=== PATIENT | female | born 1960 | race Caucasian/White ===

== ENCOUNTER 2017-09-21 22:13 | Inpatient (IN) ==
[2017-09-21 23:04] LABS: Basophils % 0.4 %; Eosinophils # 0.1 K/mcL (0.0-0.6); Eosinophils % 1.1 %; Hematocrit 42.5 % (35.3-44.9); Immature Granulocytes % 0.4 % (0-4); Lymphocytes # 2.2 K/mcL (0.6-4.6); Lymphocytes % 23.5 %; Mean Corpuscular HGB Conc 32.9 g/dL (31.6-35.5); Mean Corpuscular Hemoglobin 25.7 pg (28.0-33.3); Mean Platelet Volume 10.2 fL (9.4-12.4); Monocytes # 0.7 K/mcL (0.0-1.3); Monocytes % 7.1 %; Neutrophils # 6.3 K/mcL (1.6-8.9); Platelet Count 202 K/mcL (140-400); Red Blood Count 5.45 M/mcL (3.82-4.97); Red Cell Distribution Width 14.6 % (11.5-14.5); Segmented Neutrophils % 67.5 %
[2017-09-21 23:09] LABS: INR 1.4; Prothrombin Time 14.9 Seconds (9.4-12.1)
[2017-09-21 23:23] LABS: Platelet Estimate Normal (Normal)
[2017-09-21 23:25] LABS: Troponin I < 0.03 ng/mL (< 0.04)
[2017-09-21 23:32] LABS: BUN/Creatinine Ratio 19 (6-26); Blood Urea Nitrogen 13 mg/dL (6-20); Calcium 9.1 mg/dL (8.6-10.3); Carbon Dioxide 21 mEq/L (23-29); Chloride 103 mEq/L (98-107); Glucose 239 mg/dL (70-105); Osmolality,Calculated 288 (280-300); Potassium 3.7 mEq/L (3.5-5.1); Sodium 135 mEq/L (136-145); eGFR For African Americans > 60 (> 60); eGFR For Non-African Americans > 60 (> 60)
--- NOTE | 2017-09-22 00:47 | Emergency Department Note ---
Disposition Clinical Impression: Essential hypertension, ICD (implantable cardioverter-defibrillator) in place, AICD (automatic cardioverter/defibrillator) present, NICM (nonischemic cardiomyopathy) CHF exacerbation Qualifiers: Heart failure type: systolic Qualified Code(s): I50.23 - Acute on chronic systolic (congestive) heart failure Diabetes Qualifiers: Diabetes mellitus type: other specified (including MARTELL) Diabetes mellitus manager terminal insulin use: with manager terminal use Diabetes mellitus complication status : without complication Qualified Code(s): E13.9 - Other specified diabetes mellitus without complications Disposition: Admitted As Inpatient Condition: Good Referrals: Lonnie Sanchez PAC [Primary Care Provider] - Forms: ED Satisfaction Letter Time of Disposition: 01:33 SOB HPI - General Chief Complaint: ED Shortness of Breath/Dyspnea Stated Complaint: SOB Time Seen by Provider: 09/21/17 22:25 Source: patient, EMS Mode of arrival: EMS Limitations: no limitations Nursing Notes Reviewed: Yes Vital Signs Reviewed: Yes - History of Present Illness This is a 57 year-old female with history of nonischemic cardiomyopathy with EF as low as 10%, s/p AICD, CHF, HTN, and IDDM. She resented via EMS with dyspnea, gradually worsening for 4-5 days, associated with cough productive of thick white sputum, increased bilateral lower extremity edema, and orthopnea. She denies any associated fever or chest pain. Pt Subjective Complaint: shortness of breath Onset (ago): day(s) (4-5) Severity: moderate Consistency/Duration: gradually worsening Improves with: nothing Worsens with: lying flat, exertion Known history of: COPD, congestive heart failure Associated symptoms: Reports: cough, wheezing, sputum production, orthopnea. Denies: chest pain, fever, lower extremity pain, palpitations, hemoptysis, nausea/vomiting, syncope Treatment prior to arrival: bronchodilator Cough present: Yes Cough Description: Productive Cough Frequency: Intermittent Sputum production: Yes Sputum Amount: Moderate Sputum Color: White - Related Data Home Medications Medication Instructions Recorded Confirmed Gabapentin [Neurontin] 600 mg PO TID PRN #0 01/23/15 01/03/16 Insulin ASPART [NovoLOG] 0 unit SQ BIDWM 01/23/15 01/03/16 Lisinopril [Zestril] 20 mg PO DAILY #0 01/23/15 01/03/16 Oxycodone HCl/Acetaminophen 1 tab PO QID PRN 06/22/15 01/03/16 [Percocet 10-325 mg Tablet] Insulin Glargine [Lantus] 80 unit SQ HS 07/10/15 01/03/16 Previous Rx's Medication Instructions Recorded Carvedilol [Coreg] 25 mg PO BIDWM #60 tablet 07/15/15 Cefuroxime PO [Ceftin] 250 mg PO Q12HR #10 tablet 01/05/16 Cetirizine HCl/Pseudoephedrine 1 each PO BID #20 tab.er.12h 07/14/16 [Allergy+Congestion Relf-D Tab] GuaiFENesin/Codeine [Robitussin 5 ml PO Q6HR #150 liquid 07/14/16 w/Codeine] HYDROcodone/Acet 5/325 mg [[place] 1 tab PO Q6HR PRN #12 tablet 08/11/16 5-325 mg] Diclofenac Sodium [Voltaren] 1 appl TP QID #100 gm 06/27/17 Allergies Allergy/AdvReac Type Severity Reaction Status Date / Time No Known Allergies Allergy Verified 07/14/16 17:10 All systems ED: reviewed and negative except as stated. Constitutional: Reports: weight change. Denies: fever Cardiovascular: Reports: as per HPI, orthopnea, edema. Denies: chest pain, syncope Respiratory: Reports: cough, dyspnea, sputum production. Denies: hemoptysis Gastrointestinal: Denies: abdominal pain, vomiting Genitourinary: Denies: dysuria Musculoskeletal: Denies: back pain Past Medical History - Past Medical History Medical history: Reports: atrial fibrillation, cardiomyopathy, CHF, diabetes, hyperlipidemia, hypertension, other Surgical history: Reports: cholecystectomy, hysterectomy, orthopedic, other, pacemaker/AICD Psychiatric history: Reports: anxiety, depression RETURNER history: Reports: no RETURNER history - Social History Smoking Status: Never smoker Smokeless Tobacco Status: No Alcohol use: Reports: none Drug use: Reports: none Physical Exam - General Limitations: no limitations General appearance: alert - Head Head exam: atraumatic, normocephalic - Eye Eye exam: Present: normal appearance - ENT ENT exam: normal exam - Neck Neck exam: Present: normal inspection - Respiratory Respiratory exam: Present: respiratory distress (mild), wheezes. Absent: normal lung sounds bilaterally (decreased air entry and rhonchi bilaterally) - Cardiovascular Cardiovascular exam: Present: regular rate, normal rhythm, normal heart sounds - Abdominal Exam Abdominal exam: Present: soft, Non-Tender. Absent: distention - Extremities Exam Extremities exam: Present: normal inspection, pedal edema. Absent: calf tenderness - Neurological Exam Neurological exam: Present: alert, oriented X3. Absent: motor sensory deficit - Psychiatric Psychiatric exam: Present: anxious - Skin Skin exam: Present: warm, dry, intact Course - Reevaluation(s) Reevaluation #1: Discussed test results with patient and answered her questions. She would like to be admitted, and considering her symptoms and significant co- morbidities, we will do so. Time: 01:33 - Consultations Consultation #1: Paged hospitalist Time: 01:41 Consultation #2: Reviewed case with Dr. Woody. She would like a call back with chest CTA results prior to admission. Time: 01:56 Consultation #3: Paged Dr. Woody to discuss CT report. Patient accepted for admission. Time: 02:39 Vital Signs Temperature 98 F 09/21/17 22:16 Pulse Rate 87 09/21/17 22:16 Respiratory Rate 22 09/21/17 22:16 Blood Pressure 155/93 09/21/17 22:16 O2 Sat by Pulse Oximetry 93 09/21/17 22:16 Temperature 98 F 09/21/17 22:16 Pulse Rate 85 09/22/17 01:58 Respiratory Rate 24 09/22/17 01:58 Blood Pressure 155/84 09/22/17 01:58 O2 Sat by Pulse Oximetry 92 09/22/17 01:58 Oxygen Delivery Oxygen Delivery Nasal Cannula Shortness of Breath/Dyspnea - [facility] Narrative Medical decision making narrative: This is a patient with history of severe cardiomyopathy/CHF who presented with dyspnea, productive cough, and edema. Her presented symptoms and exam had features of PNA, COPD exacerbation (she is a smoker but I'm not finding a previous diagnosis of COPD), and CHF exacerbation. CXR showed stable CHF, no PNA. D-dimer was positive, and chest CTA is pending at this time. If CT negative , we will admit for dyspnea, CHF exacerbation. - Differential Diagnosis Likely: acute exacerbation of chronic obstructive airways disease, congestive heart failure, pneumonia, pulmonary embolism - Medical Records Medical records reviewed: Yes I reviewed the patient's medical records. - Lab Data Lab results reviewed: Yes I reviewed the patient's lab results. Result diagrams: 09/21/17 22:51 09/21/17 22:51 Lab Results 09/21/17 09/21/17 09/21/17 Range/Units 22:51 22:51 22:51 WBC 9.3 (4.3-11.1) K/mcL RBC 5.45 H (3.82-4.97) M/mcL Hgb 14.0 (11.5-15.4) g/dL Hct 42.5 (35.3-44.9) % MCV 78.0 L (83.0-100.0) fL MCH 25.7 L (28.0-33.3) pg MCHC 32.9 (31.6-35.5) g/dL RDW 14.6 H (11.5-14.5) % Plt Count 202 (140-400) K/mcL MPV 10.2 (9.4-12.4) fL Immature Gran % 0.4 (0-4) % Seg Neutrophils % 67.5 % Lymphocytes % 23.5 % Monocytes % 7.1 % Eosinophils % 1.1 % Basophils % 0.4 % Neutrophils # 6.3 (1.6-8.9) K/mcL Lymphocytes # 2.2 (0.6-4.6) K/mcL Monocytes # 0.7 (0.0-1.3) K/mcL Eosinophils # 0.1 (0.0-0.6) K/mcL Basophils # 0.0 (0.0-0.2) K/mcL Platelet Estimate Normal (Normal) PT 14.9 H (9.4-12.1) Seconds INR 1.4 APTT 28.0 (26.0-36.0) Seconds D-Dimer 533 H (0-500) ng/mLFEU Sodium 135 L (136-145) mEq/L Potassium 3.7 (3.5-5.1) mEq/L Chloride 103 (98-107) mEq/L Carbon Dioxide 21 L (23-29) mEq/L BUN 13 (6-20) mg/dL Creatinine 0.69 (0.60-1.20) mg/dL Est GFR ( Amer) > 60 (> 60) Est GFR (Non-Af Amer) > 60 (> 60) BUN/Creatinine Ratio 19 (6-26) Glucose 239 H (70-105) mg/dL Calculated Osmolality 288 (280-300) Lactic Acid (0.5-2.2) mmol/L Calcium 9.1 (8.6-10.3) mg/dL Troponin I < 0.03 (< 0.04) ng/mL B-Natriuretic Peptide (Less than 100) pg/mL 09/21/17 09/21/17 Range/Units 22:51 22:51 WBC (4.3-11.1) K/mcL RBC (3.82-4.97) M/mcL Hgb (11.5-15.4) g/dL Hct (35.3-44.9) % MCV (83.0-100.0) fL MCH (28.0-33.3) pg MCHC (31.6-35.5) g/dL RDW (11.5-14.5) % Plt Count (140-400) K/mcL MPV (9.4-12.4) fL Immature Gran % (0-4) % Seg Neutrophils % % Lymphocytes % % Monocytes % % Eosinophils % % Basophils % % Neutrophils # (1.6-8.9) K/mcL Lymphocytes # (0.6-4.6) K/mcL Monocytes # (0.0-1.3) K/mcL Eosinophils # (0.0-0.6) K/mcL Basophils # (0.0-0.2) K/mcL Platelet Estimate (Normal) PT (9.4-12.1) Seconds INR APTT (26.0-36.0) Seconds D-Dimer (0-500) ng/mLFEU Sodium (136-145) mEq/L Potassium (3.5-5.1) mEq/L Chloride (98-107) mEq/L Carbon Dioxide (23-29) mEq/L BUN (6-20) mg/dL Creatinine (0.60-1.20) mg/dL Est GFR ( Amer) (> 60) Est GFR (Non-Af Amer) (> 60) BUN/Creatinine Ratio (6-26) Glucose (70-105) mg/dL Calculated Osmolality (280-300) Lactic Acid 1.3 (0.5-2.2) mmol/L Calcium (8.6-10.3) mg/dL Troponin I (< 0.04) ng/mL B-Natriuretic Peptide 995 H (Less than 100) pg/mL - Radiology Data Radiology results reviewed: Yes I reviewed the patient's radiology results. XR/XR chest 1V portable IMPRESSION: No significant change. Low lung volume study with bibasilar atelectasis. Possible mild vascular congestion and stable cardiomegaly. CT/CT angio chest IMPRESSION: No acute pulmonary emboli. Cardiomegaly. No pericardial effusion. Multiple areas of clustered pulmonary nodules and ground-glass pulmonary opacities bilaterally, most prominent within the bilateral lower lobes. Findings may represent pneumonia or aspiration. Recommend radiographic follow-up to complete resolution. Consider follow-up chest CT in 3 months. - EKG Data EKG attestation: Yes I reviewed and interpreted this EKG. EKG shows normal: Reports: sinus rhythm [place]/QRS: Reports: left axis deviation T wave inversions noted in: Reports: I, aVL QRS morphology: Reports: other (slight widening / intraventricular conduction delay) Ectopy: Reports: PAC When compared to previous EKG there are: no significant changes Interpretation: Reports: unchanged when compared to prior tracing (date), nonspecific ST-T wave changes
[2017-09-22] MEDS ORDERED: Isovue-370 500 ML INFUS..BTL IV ONE (01:15)
[2017-09-22] MEDS ORDERED: Furosemide 40 MG/4 ML VIAL IVP ONE (01:55)
[2017-09-22] MEDS ORDERED: *HR* Dextrose 50 % in Water (Syg) 50 ML SYRINGE IVP PRN (04:26)
[2017-09-22] MEDS ORDERED: Dextrose Gel 15 GM/37.5 ML TUBE PO PRN ×2 (04:26)
[2017-09-22] MEDS ORDERED: D5% in Water 1,000 ML IVC PRN (04:26)
[2017-09-22] MEDS: Ipratropium/Albuterol Neb 3 ML IH SCH ×4 (05:25→22:19)
[2017-09-22] MEDS: Insulin DETEMIR 100 UNIT/ML X5UNITS SQ SCH ×2 (05:42→22:59)
[2017-09-22] MEDS: *HR* OxyCODONE/APAP 7.5/325 TABLET PO PRN ×3 (05:42→23:02)
[2017-09-22] MEDS: Insulin LISPRO 300 UNITS/3 ML VIAL SQ SCH ×4 (05:43→17:05)
[2017-09-22] MEDS ORDERED: Furosemide 40 MG/4 ML VIAL IVP SCH (06:00)
[2017-09-22] MEDS ORDERED: Naloxone 0.4 MG/ML INJ IVP PRN (06:27)
[2017-09-22] MEDS ORDERED: Acetaminophen 325 MG TABLET PO PRN (06:27)
--- NOTE | 2017-09-22 06:52 | Internal Med History&Physical ---
Date of Encounter: 09/22/17 Time of Encounter: 06:42 Internal Medicine - H&P: HPI Chief complaint: "Short of breath, back pain, ass pain" Admitted From: Emergency Dept Plans for Post Hospital Care: Home History of present illness: Ms. Song is a 57 year old female who presented to ED with shortness of breath, lower back pain, and "ass" pain. Patient states that she fell in shower few days ago and hit her head and back side. Patient has a history of nonischemic cardiomyopathy with EF as low as 10%, s/p AICD, CHF, HTN, and Type II DM. She has been having gradually worsening dyspnea for last 4-5 days. She has also had worsening BLE edema. She denies any chest pain, fever, chills, nausea, and vomiting. She has had some mild diarrhea x 2. She denies constipation or abdominal pain. She states that she stopped following with cardiology here because she did not like having a new doctor everytime she went there. I told her that I would consult SW in AM to help her find a new agriculture specialist. She states that her PCP manages her medications, and she does follow up with him. Her main concern at this time is getting her home percocet 10 mg QID. She states that respiratory status is greatly improved since getting IV lasix 40 mg x 1 in ED. Her breathing is non-labored on room air. Past Med Surg Social Fam HX - Past Medical History Medical history: atrial fibrillation, cardiomyopathy, CHF, diabetes, hyperlipidemia, hypertension, other Psychiatric history: anxiety, depression - Past Surgical History Surgical History: cholecystectomy, hysterectomy, orthopedic, other, pacemaker/ AICD - Social History Smoking Status: Never smoker Smokeless Tobacco Status: No Alcohol use: none Drug use: none - Family History Mother Adopted: No Family Member Ethnicity: Non- Living Status: Hx Family Cardiac Disorders: Yes (chf) Hx Family Respiratory Disorders: Yes (copd) Hx Family Cancer: No Hx Family GI Disorders: No Hx Family Endocrine Disorder: Yes (dm) Hx Family Neuromuscular Disorders: No Hx Family Neurologic Disorders: No Hx Family HEENT Disorders: No Hx Family Autoimmune Disorders: No Sister Living Status: Hx Family Cardiac Disorders: Yes (CHF) Hx Family Neurologic Disorders: Yes (Migraine headache) Internal Medicine - H&P: Meds Gabapentin [Neurontin] 600 mg PO TID PRN #0 01/23/15 [History] Insulin ASPART [NovoLOG] 0 unit SQ BIDWM 01/23/15 [History] Lisinopril [Zestril] 20 mg PO DAILY #0 01/23/15 [History] Oxycodone HCl/Acetaminophen [Percocet 10-325 mg Tablet] 1 tab PO QID PRN [History] Insulin Glargine [Lantus] 80 unit SQ HS 07/10/15 [History] Carvedilol [Coreg] 25 mg PO BIDWM #60 tablet 07/15/15 [Rx] Cefuroxime PO [Ceftin] 250 mg PO Q12HR #10 tablet 01/05/16 [Rx] Cetirizine HCl/Pseudoephedrine [Allergy+Congestion Relf-D Tab] 1 each PO BID # 20 tab.er.12h 07/14/16 [Rx] GuaiFENesin/Codeine [Robitussin w/Codeine] 5 ml PO Q6HR #150 liquid 07/14/16 [Rx ] HYDROcodone/Acet 5/325 mg [[place] 5-325 mg] 1 tab PO Q6HR PRN #12 tablet [Rx] Diclofenac Sodium [Voltaren] 1 appl TP QID #100 gm 06/27/17 [Rx] 3 Allergy/AdvReac Type Severity Reaction Status Date / Time No Known Allergies Allergy Verified 07/14/16 17:10 All Systems PM: A 10-system review of systems was performed and is negative for pertinent findings except as documented above in the HPI. - Constitutional Vitals: Temp Pulse Resp BP Pulse Ox 97.8 F 81 16 144/87 91 09/22/17 03:59 09/22/17 03:59 09/22/17 05:28 09/22/17 03:59 09/22/17 05:28 Internal Med - H&P Results - Labs CBC & Chem 7: 09/21/17 22:51 09/21/17 22:51 - Assessment and plan (1) Acute on chronic systolic (congestive) heart failure Current Visit: Yes Status: Acute Assessment and plan: Admit inpatient. Continue supplemental O2. Start duonebs scheduled. IV lasix 40 mg BID. Strict I&Os and daily weights. CTA chest negative for PE, but possible pneumonia. Given dyspnea, will add IV levaquin 750 mg QD; will deescalate quickly if improvement with diurese. Consult cardiology in AM; appreciate input. Will need good outpatient follow-up; SW consulted to help set this up. (2) Essential hypertension Current Visit: Yes Status: Acute Assessment and plan: Continue home medications. (3) AICD (automatic cardioverter/defibrillator) present Current Visit: Yes Status: Chronic (4) Diabetes Current Visit: Yes Status: Chronic Assessment and plan: See management of hyperglycemia below. Qualifiers: Diabetes mellitus type: other specified (including MARTELL) Diabetes mellitus termite control servicer insulin use: with termite control servicer use Diabetes mellitus complication status: without complication Qualified Code(s): E13.9 - Other specified diabetes mellitus without complications; Z79.4 - vermin exterminator (current) use of insulin (5) NICM (nonischemic cardiomyopathy) Current Visit: Yes Status: Chronic Assessment and plan: Cardiology consulted. SW consulted to help patient find new agriculture specialist. Treating CHF as per above. (6) Chronic pain Current Visit: Yes Status: Chronic Assessment and plan: See restarting home percocet below. Qualifiers: Chronic pain type: other chronic pain Qualified Code(s): G89.29 - Other chronic pain (7) Hyperglycemia due to type 2 diabetes mellitus Current Visit: Yes Status: Acute Assessment and plan: Start accuchecks and moderate dose SSI QID AC/HS. Do 1 correction dose now. Start home long-acting at lower dose. Qualifiers: Diabetes mellitus group home insulin use: with group home use Qualified Code( s): E11.65 - Type 2 diabetes mellitus with hyperglycemia; Z79.4 - vermin exterminator ( current) use of insulin (8) Hyperlipidemia Current Visit: Yes Status: Chronic Assessment and plan: Continue home medications. Qualifiers: Hyperlipidemia type: mixed hyperlipidemia Qualified Code(s): E78.2 - Mixed hyperlipidemia (9) Low back pain Current Visit: Yes Status: Acute Assessment and plan: Acute on chronic. Given fall, will get XR lumbar spine. PT/OT consulted. Will restart home percocet maybe at lower dose once confirmed by pharmacist. Qualifiers: Chronicity: acute Back pain laterality: unspecified Sciatica presence: unspecified whether sciatica present Qualified Code(s): M54.5 - Low back pain (10) Head pain Current Visit: Yes Status: Acute Assessment and plan: No head imaging done in ED. Will order STAT CT head. Qualifiers: Headache type: unspecified Headache chronicity pattern: acute headache Intractability: not intractable Qualified Code(s): R51 - Headache (11) Fall Current Visit: Yes Status: Acute Assessment and plan: PT/OT consulted. Qualifiers: Encounter type: initial encounter Qualified Code(s): W19.XXXA - Unspecified fall, initial encounter (12) Pneumonia Current Visit: Yes Status: Suspected Assessment and plan: IV levaquin for now as per above. Qualifiers: Pneumonia type: due to unspecified organism Laterality: unspecified laterality Lung location: unspecified part of lung Qualified Code(s): J18.9 - Pneumonia, unspecified organism - Time Spent With Patient Total time spent is greater than 50% in coordination of care (as documented) at patient's floor/unit and/or counseling patient: 25 - 35 minutes
[2017-09-22 08:06] LABS: Hematocrit 42.7 % (35.3-44.9); Hemoglobin 14.1 g/dL (11.5-15.4); Mean Corpuscular Hemoglobin 25.6 pg (28.0-33.3); Mean Corpuscular Volume 77.6 fL (83.0-100.0); Mean Platelet Volume 10.1 fL (9.4-12.4); Platelet Count 209 K/mcL (140-400); Red Cell Distribution Width 14.4 % (11.5-14.5)
[2017-09-22 08:10] LABS: Chol/HDL Ratio 4.1 (0-4.9)
[2017-09-22 08:11] LABS: BUN/Creatinine Ratio 18 (6-26); Blood Urea Nitrogen 13 mg/dL (6-20); Carbon Dioxide 24 mEq/L (23-29); Chloride 103 mEq/L (98-107); Glucose 241 mg/dL (70-105); Osmolality,Calculated 290 (280-300); Potassium 3.2 mEq/L (3.5-5.1); Sodium 136 mEq/L (136-145); eGFR For African Americans > 60 (> 60); eGFR For Non-African Americans > 60 (> 60)
[2017-09-22 08:59] LABS: Eosinophils # 0.2 K/mcL (0.0-0.6); Lymphocytes # 2.1 K/mcL (0.6-4.6); Monocytes # 0.2 K/mcL (0.0-1.3); Neutrophils # 6.3 K/mcL (1.6-8.9); Platelet Estimate Normal (Normal); Reactive Lymphocytes Present (Not Present)
[2017-09-22] MEDS ORDERED: Perflutren Lipid Microsphere 1.3 ML in 0.9 % Sodium Chloride 8.7 ML IVP ONE (09:09)
[2017-09-22] MEDS: Levofloxacin 750 MG/150 ML 750 MG/150 ML BAG IVPB SCH (10:58)
[2017-09-22] MEDS: Furosemide 40 MG/4 ML VIAL IVP SCH ×2 (10:58→16:18)
--- NOTE | 2017-09-22 14:29 | Cardiology Consult Note ---
Addendum entered and electronically signed by Daisy Estrella MD 09/22/17 16:18: I have personally performed a face to face evaluation on this patient. I have reviewed and agree with the care plan. History and Exam by me shows: Pt seen/evaluated. Agree with below. Pt with symptoms consistent with low cardiac output, acute HFrEF. Will start on dobutamine gtt. Also discussed with patient referral to advanced heart failure clinic as outpatient- pt prefers [facility]. Addendum entered and electronically signed by Lorena Man CNP 09/22/17 15: 02: Discussed with Dr. Estrella, will start dobutamine gtt to improve cardiac output. Will need transfer to or [facility]. Original Note: Date of Encounter: 09/22/17 Time of Encounter: 14:00 Assessment and Plan (1) Acute on chronic systolic (congestive) heart failure Current Visit: Yes Status: Acute Mild CHF exacerbation. Pt. presented after mechanical fall. CXR: stable CHF. No overt volume overload upon exam. Known NICMP (2010) s/p ICD. Pt. reports gen. change at [place] in 2017, has not had device checked in >1 year. Poor outpatient follow-up. Agree with IV lasix, monitory kidney function closely. Resume home BB, consider ACEi upon discharge. Strict I&Os, daily weights, Na/fluid restricted diet. (2) NICM (nonischemic cardiomyopathy) Current Visit: Yes Status: Chronic Hx of NICMP, known EF 15-20% Will interrogate device. Obtain records from [place]. Discussion w patient/family: The assessment and plan as outlined above was discussed with the patient and/or family members who expressed understanding and agreement. All questions were answered. Thank you for involving us in the care of your patient. Please call with any questions. The patient will be discussed and reviewed with Dr. Estrella, changes to be made accordingly. History of Present Illness Consult date: 09/22/17 Requesting physician: Everette Potter Consult reason: CHF Chief complaint: Fall, shortness of breath History of present illness: Ms. Song is a 57 year old female with PMHx significant for NICMP, VT, HTN, DMII who presented to the ED after a fall yesterday in addition to worsening shortness of breath over the past 1-2 days. Reports fall as she was trying to lift leg out of bath tub--did not lose consciousness, was not dizzy prior to event. Noted in outpatient record she has poor follow-up with [facility] and in device clinic. She has a long-standing hx of non-ischemic cardiomyopaty s /p ICD placement. Reports hospitalization ~1 year ago at [facility], at that time she underwent ICD gen change; she has not followed as outpatient with [facility] due to transportation issues. Prior CV testing: LHC 07/2015: minimal atherosclerotic CAD TTE 07/2015: LVEF 15-20% Past Med Surg Social Fam HX - Past Medical History Attestation: Yes The following information was validated with the patient. Source: patient Medical history: atrial fibrillation, cardiomyopathy, CHF, diabetes, hyperlipidemia, hypertension, other Psychiatric history: anxiety, depression - Past Surgical History Surgical History: cholecystectomy, hysterectomy, orthopedic, other, AICD - Social History Smoking Status: Never smoker Smokeless Tobacco Status: No Alcohol use: none Drug use: none - Family History Mother Adopted: No Family Member Ethnicity: Non- Living Status: Hx Family Cardiac Disorders: Yes (chf) Hx Family Respiratory Disorders: Yes (copd) Hx Family Cancer: No Hx Family GI Disorders: No Hx Family Endocrine Disorder: Yes (dm) Hx Family Neuromuscular Disorders: No Hx Family Neurologic Disorders: No Hx Family HEENT Disorders: No Hx Family Autoimmune Disorders: No Sister Living Status: Hx Family Cardiac Disorders: Yes (CHF) Hx Family Neurologic Disorders: Yes (Migraine headache) Medications and Allergies Lisinopril [Zestril] 20 mg PO DAILY #0 01/23/15 [History] Insulin Glargine [Lantus] 80 unit SQ HS 07/10/15 [History] Carvedilol [Coreg] 6.25 mg PO BID 09/22/17 [History] Diclofenac Sodium [Voltaren] 1 appl TP QID PRN 09/22/17 [History] Insulin ASPART [Novolog Flexpen] 0 units SQ TIDWM 09/22/17 [History] Oxycodone HCl/Acetaminophen [Endocet 10-325 mg Tablet] 1 tab PO QID 09/22/17 [ History] Ropinirole HCl [Requip] 0.5 mg PO HS 09/22/17 [History] 3 Allergy/AdvReac Type Severity Reaction Status Date / Time No Known Allergies Allergy Verified 09/22/17 12:31 All Systems Review: The remainder of the systems were reviewed and are negative - Cardiovascular Cardiovascular: as per HPI Physical Examination Vital Signs, Last 4 Hours Temp Pulse Resp BP Pulse Ox 09/22/17 11:08 99.0 F 82 16 132/85 94 09/22/17 10:45 94 General: Conversant HEENT: Atraumatic, Normocephaly Cardiac: Reg Rate and Rhythm, Normal S1 and S2 Lungs: Other (bibasilar rales) Neuro: Alert and responsive Abdomen: Soft Skin: No rashes noted on visualized skin Musculoskeletal: No Chest Wall Tenderness Extremities: Other (cool, dusky bilateral LE's) Results 09/22/17 07:34 09/22/17 07:34 Lab Results 09/22/17 09/22/17 09/22/17 07:34 07:34 07:34 WBC 8.7 Hgb 14.1 Hct 42.7 Plt Count 209 Sodium 136 Potassium 3.2 L Chloride 103 Carbon Dioxide 24 BUN 13 Creatinine 0.72 Glucose 241 H Calcium 9.0 B-Natriuretic Peptide 972 H Active Medications Acetaminophen (Tylenol) 650 mg PO Q6HR PRN PRN Reason: Mild Pain/Fever Stop: 03/24/18 06:28 Albuterol/Ipratropium (Duoneb) 3 ml IH [id number] ANAHY Stop: 03/24/18 04:31 Last Admin: 09/22/17 09:40 Dose: Not Given Dextrose/Water (Dextrose 50% (Syg)) 25 ml IVP AD PRN PRN Reason: Hypoglycemia Stop: 03/24/18 04:27 Enoxaparin Sodium (Lovenox) 40 mg SQ 0600 AANHY PRN Reason: Protocol Stop: 03/25/18 06:01 Furosemide (Lasix) 40 mg IVP BIDDIURETIC ANAHY Stop: 03/24/18 08:01 Last Admin: 09/22/17 10:58 Dose: 40 mg Glucagon (Glucagen) 1 mg IM ONCE PRN PRN Reason: Hypoglycemia Stop: 03/24/18 04:27 Glucose (Gluctose) 15 gm PO ONCE PRN PRN Reason: Hypoglycemia Stop: 03/24/18 04:27 Glucose (Gluctose) 30 gm PO ONCE PRN PRN Reason: Hypoglycemia Stop: 03/24/18 04:27 Heparin Sodium (Porcine) (Heparin Lock) 500 unit IV ONCE PRN PRN Reason: Port Flush while in RADIOLOGY Stop: 09/24/17 01:15 Dextrose (Dextrose 5%) 1,000 mls @ 100 mls/hr IVC .Q10H PRN PRN Reason: HYPOGLYCEMIA Stop: 03/24/18 04:27 Levofloxacin/Dextrose (Levaquin Premix 750mg/150 Ml) 750 mg in 150 mls @ 100 mls/hr IVPB DAILY ANAHY PRN Reason: Protocol Stop: 03/24/18 09:01 Last Admin: 09/22/17 10:58 Dose: 100 mls/hr Insulin Detemir (Levemir) 30 unit SQ HS ANAHY Stop: 03/24/18 04:31 Last Admin: 09/22/17 05:42 Dose: 30 unit Insulin Human Lispro (Humalog) 0 units SQ HS ANAHY PRN Reason: Protocol Stop: 03/24/18 21:01 Insulin Human Lispro (Humalog) 0 units SQ TIDAC ANAHY PRN Reason: Protocol Stop: 03/24/18 04:31 Last Admin: 09/22/17 12:14 Dose: 6 units Naloxone HCl (Narcan) 0.4 mg IVP Q2MIN PRN PRN Reason: SEE COMMENTS Stop: 03/24/18 06:28 Oxycodone/Acetaminophen (Percocet 7.5/325) 1 each PO Q6HR PRN PRN Reason: Severe Pain Stop: 03/24/18 05:20 Last Admin: 09/22/17 05:42 Dose: 1 each - Imaging and Cardiology Echo: report reviewed Cardiac cath: report reviewed Other Results: 12 hour tele: avg HR=82 SR. - EKG Interpretation EKG results cardiology: personally reviewed Consult Discharge Plan - Plan Referrals: Lonnie Sanchez, PAC [Primary Care Provider] -
[2017-09-22] MEDS ORDERED: (Diclofenac Sodium [Voltaren] 1 APPL) TP PRN (15:19)
--- NOTE | 2017-09-22 15:25 | Internal Med Progress Note ---
Date of Encounter: 09/22/17 Time of Encounter: 15:21 - Assessment and plan (1) Acute on chronic systolic (congestive) heart failure Current Visit: Yes Status: Acute Assessment and plan: presented with worsening shortness of breath. Chest CTA negative for pulmonary embolism. BNP 995, CXR with mild vascular congestion. TTE with EF 15-20% ( unchanged from 2016). IV diuresis with dobutamine gtt. Cont daily weights, strict I&O's. Cardiology following; defer diuresis to cardiology (2) AICD (automatic cardioverter/defibrillator) present Current Visit: Yes Status: Chronic Assessment and plan: per hx. Device interrogation pending (3) Diabetes Current Visit: Yes Status: Chronic Assessment and plan: per hx. SSI. Monitor blood sugar and titrate PRN Qualifiers: Diabetes mellitus type: other specified (including MARTELL) Diabetes mellitus watermelon inspector insulin use: with watermelon inspector use Diabetes mellitus complication status: without complication Qualified Code(s): E13.9 - Other specified diabetes mellitus without complications; Z79.4 - ferry terminal agent (current) use of insulin (4) NICM (nonischemic cardiomyopathy) Current Visit: Yes Status: Chronic Assessment and plan: per hx. Plan as noted above. (5) Hyperlipidemia Current Visit: Yes Status: Chronic Assessment and plan: Continue home medications. Qualifiers: Hyperlipidemia type: mixed hyperlipidemia Qualified Code(s): E78.2 - Mixed hyperlipidemia (6) Chronic pain Current Visit: Yes Status: Chronic Assessment and plan: See restarting home percocet below. Qualifiers: Chronic pain type: other chronic pain Qualified Code(s): G89.29 - Other chronic pain (7) Hyperglycemia due to type 2 diabetes mellitus Current Visit: Yes Status: Acute Assessment and plan: Start accuchecks and moderate dose SSI QID AC/HS. Do 1 correction dose now. Start home long-acting at lower dose. Qualifiers: Diabetes mellitus watermelon inspector insulin use: with watermelon inspector use Qualified Code( s): E11.65 - Type 2 diabetes mellitus with hyperglycemia; Z79.4 - ferry terminal agent ( current) use of insulin (8) Essential hypertension Current Visit: Yes Status: Acute Assessment and plan: per hx. BP controlled. Cont home BP medication. Monitor BP and titrate PRN (9) Low back pain Current Visit: Yes Status: Acute Assessment and plan: Acute on chronic. Lumbar x-ray nonacute. PT/OT consulted. Qualifiers: Chronicity: acute Back pain laterality: unspecified Sciatica presence: unspecified whether sciatica present Qualified Code(s): M54.5 - Low back pain (10) Head pain Current Visit: Yes Status: Acute Assessment and plan: No head imaging done in ED. STAT head CT ordered but need to wait at least 24 hours from chest CTA. Neurologically intact, no focal deficits apparent. Hold on head CT at this time. Consider imaging of change in mentation Qualifiers: Headache type: unspecified Headache chronicity pattern: acute headache Intractability: not intractable Qualified Code(s): R51 - Headache (11) Fall Current Visit: Yes Status: Acute Assessment and plan: PT/OT consulted. Qualifiers: Encounter type: initial encounter Qualified Code(s): W19.XXXA - Unspecified fall, initial encounter (12) Pneumonia Current Visit: Yes Status: Suspected Assessment and plan: CTA conerning for pneumonia. Rested for a PCR, urinary antigens pending. Continue IV Levaquin. Qualifiers: Pneumonia type: due to unspecified organism Laterality: unspecified laterality Lung location: unspecified part of lung Qualified Code(s): J18.9 - Pneumonia, unspecified organism (13) DVT prophylaxis Current Visit: Yes Status: Acute Assessment and plan: lovenox - Time Spent With Patient Total time spent is greater than 50% in coordination of care (as documented) at patient's floor/unit and/or counseling patient: - Subjective Interval history: Seen and examined at bedside. Patient is new to me, information obtained from chart review and patient report. Patient says she feels a little better from when she first came in. Still has a cough and short of breath with exertion. No chest pain. - Constitutional Vitals: Temp Pulse Resp BP Pulse Ox 99.0 F 82 16 132/85 94 09/22/17 11:08 09/22/17 11:08 09/22/17 15:16 09/22/17 11:08 09/22/17 15:16 General appearance: Present: A&O X 3 - Head Head exam: Present: atraumatic, normocephalic - Eye Eye exam: Present: PERRL, conjuntiva pink, sclera anicteric Pupils: Present: PERRL - Neck Neck exam general surgery: Present: supple, trachea midline. Absent: lymphadenopathy - Respiratory Respiratory exam: Present: rales, rhonchi. Absent: accessory muscle use, wheezes - Cardiovascular Cardiovascular exam: Present: RRR, +S1, +S2. Absent: diastolic murmur, gallop, rubs, systolic murmur - GI/Abdominal GI/Abdominal exam: Present: normal bowel sounds, soft, no peritoneal signs. Absent: distended, tenderness - Extremities Exam Extremities exam: Present: warm, radial pulses palpable and symmetrical. Absent : calf tenderness, cyanotic, pedal edema - Neurological Exam Neurological exam: Present: CN II-XII intact, oriented X3, no focal deficits. Absent: pronater drift, facial droop, speech deficit - Skin Skin exam: Present: dry, intact Internal Medicine: Result - Labs CBC & Chem 7: 09/22/17 07:34 09/22/17 07:34 Labs: Short CBC 09/22/17 Range/Units 07:34 WBC 8.7 (4.3-11.1) K/mcL Hgb 14.1 (11.5-15.4) g/dL Hct 42.7 (35.3-44.9) % Plt Count 209 (140-400) K/mcL Neutrophils # 6.3 (1.6-8.9) K/mcL BMP 09/22/17 07:34 Sodium 136 Potassium 3.2 L Chloride 103 Carbon Dioxide 24 BUN 13 Creatinine 0.72 Glucose 241 H Calcium 9.0 - ABG Interpretation ABG results: PT/INR, D-dimer PT 14.9 Seconds (9.4-12.1) H 09/21/17 22:51 D-Dimer 533 ng/mLFEU (0-500) H 09/21/17 22:51 Consult Discharge Plan - Plan Referrals: Lonnie Sanchez, PAC [Primary Care Provider] -
[2017-09-22 18:17] LABS: Adenovirus Not Detected (Not Detect); Coronavirus 229E Not Detected (Not Detect); Coronavirus HKU1 Not Detected (Not Detect); Coronavirus NL63 Not Detected (Not Detect); Coronavirus OC43 Not Detected (Not Detect)
[2017-09-22 18:18] LABS: Bordetella Pertussis Not Detected (Not Detect); Chlamydophila pneumoniae Not Detected (Not Detect); Human Metapneumovirus Not Detected (Not Detect); Human Rhinovirus/Enterovirus Not Detected (Not Detect); Influenza A Subtype 2009 H1 Not Detected (Not Detect); Influenza A Untypeable Not Detected (Not Detect); Influenza B Not Detected (Not Detect); Mycoplasma pneumoniae Not Detected (Not Detect); Parainfluenza Virus 1 Not Detected (Not Detect); Parainfluenza Virus 2 Not Detected (Not Detect); Parainfluenza Virus 3 ***DETECTED*** (Not Detect); Parainfluenza Virus 4 Not Detected (Not Detect); Respiratory Syncytial Virus Not Detected (Not Detect)
[2017-09-22] MEDS ORDERED: Insulin LISPRO 300 UNITS/3 ML VIAL SQ SCH (21:00)
[2017-09-22] MEDS: rOPINIRole 0.25 MG TABLET PO SCH (22:54)
[2017-09-22] MEDS ORDERED: 0.9 % Sodium Chloride 250 ML ONE (23:42)
[2017-09-23 02:46] LABS: Basophils # 0.1 K/mcL (0.0-0.2); Basophils % 0.7 %; Eosinophils # 0.2 K/mcL (0.0-0.6); Hematocrit 42.3 % (35.3-44.9); Immature Granulocytes % 0.5 % (0-4); Lymphocytes # 2.2 K/mcL (0.6-4.6); Lymphocytes % 23.9 %; Mean Corpuscular HGB Conc 33.1 g/dL (31.6-35.5); Mean Corpuscular Hemoglobin 25.7 pg (28.0-33.3); Mean Corpuscular Volume 77.8 fL (83.0-100.0); Mean Platelet Volume 9.7 fL (9.4-12.4); Monocytes # 0.7 K/mcL (0.0-1.3); Monocytes % 7.5 %; Platelet Count 220 K/mcL (140-400); Red Blood Count 5.44 M/mcL (3.82-4.97); Red Cell Distribution Width 14.4 % (11.5-14.5); Segmented Neutrophils % 65.4 %
[2017-09-23 03:05] LABS: BUN/Creatinine Ratio 21 (6-26); Blood Urea Nitrogen 19 mg/dL (6-20); Calcium 8.9 mg/dL (8.6-10.3); Carbon Dioxide 28 mEq/L (23-29); Chloride 103 mEq/L (98-107); Glucose 165 mg/dL (70-105); Magnesium 1.8 mg/dL (1.6-2.6); Osmolality,Calculated 294 (280-300); Potassium 3.7 mEq/L (3.5-5.1); Sodium 139 mEq/L (136-145); eGFR For African Americans > 60 (> 60); eGFR For Non-African Americans > 60 (> 60)
[2017-09-23] MEDS: Ipratropium/Albuterol Neb 3 ML IH SCH ×4 (04:29→21:45)
[2017-09-23] MEDS: *HR* Enoxaparin 40 MG/0.4 ML SYRINGE SQ SCH (06:20)
[2017-09-23] MEDS: Insulin LISPRO 300 UNITS/3 ML VIAL SQ SCH ×4 (08:39→21:27)
[2017-09-23] MEDS: Levofloxacin 750 MG/150 ML 750 MG/150 ML BAG IVPB SCH (08:43)
[2017-09-23] MEDS: Furosemide 40 MG/4 ML VIAL IVP SCH ×2 (08:44→16:59)
[2017-09-23] MEDS ORDERED: Lisinopril 20 MG TABLET PO SCH (09:00)
--- NOTE | 2017-09-23 09:19 | Cardiology Progress Note ---
Date of Encounter: 09/23/17 Time of Encounter: 08:25 Assessment and Plan (1) Acute on chronic systolic (congestive) heart failure Current Visit: Yes Status: Acute Acute decompensation HF. Reports NYHA class III symptoms. CXR: stable CHF. No overt volume overload upon exam. Known NICMP (2010) s/p ICD. Pt. reports gen. change at [place] in 2017, has not had device checked in >1 year. Poor outpatient follow-up. Inpatient device check 09/22: good battery life, normal device function, 1 episode treated in VF zone 07/21/17 with successful ATP; 190 NSVT episodes. Last check 08/23/16. On IV lasix. Dobutamine gtt started yesterday, symptoms improved. Cumulative I&O: -873 mL. On BB. Hold ACEi for now while on dobutamine, resume by discharge. Strict I&Os, daily weights, Na/fluid restricted diet. (2) NICM (nonischemic cardiomyopathy) Current Visit: Yes Status: Chronic Hx of NICMP, known EF 15-20% Will interrogate device. Obtain records from [place]. Discussion w patient/family: The assessment and plan as outlined above was discussed with the patient and/or family members who expressed understanding and agreement. All questions were answered. Thank you for involving us in the care of your patient. Please call with any questions. The patient will be discussed and reviewed with Dr. Estrella, changes to be made accordingly. Subjective Principal diagnosis: NICMP Interval history: Seen and examined. Reports shortness of breath improving. Reports legs "feel better" Objective Vital Signs, Last 4 Hours Temp Pulse Resp BP Pulse Ox 09/23/17 07:28 98.4 F 73 19 143/84 90 09/23/17 06:00 76 127/66 General: Conversant HEENT: Atraumatic, Normocephaly Cardiac: Reg Rate and Rhythm, Normal S1 and S2 Lungs: Normal Breath Sounds Neuro: Alert and responsive Abdomen: Soft Skin: No rashes noted on visualized skin Musculoskeletal: No Chest Wall Tenderness Extremities: Other (mild BLE edema, discoloration to bilateral feet) Results 09/23/17 02:27 09/23/17 02:27 Lab Results 09/23/17 09/23/17 02:27 02:27 WBC 9.1 Hgb 14.0 Hct 42.3 Plt Count 220 Sodium 139 Potassium 3.7 Chloride 103 Carbon Dioxide 28 BUN 19 Creatinine 0.91 Glucose 165 H Calcium 8.9 Magnesium 1.8 Active Medications Acetaminophen (Tylenol) 650 mg PO Q6HR PRN PRN Reason: Mild Pain/Fever Stop: 03/24/18 06:28 Albuterol/Ipratropium (Duoneb) 3 ml IH [id number] ANAHY Stop: 03/24/18 04:31 Last Admin: 09/23/17 04:29 Dose: 3 ml Carvedilol (Coreg) 6.25 mg PO BID ANAHY PRN Reason: Protocol Stop: 03/24/18 21:01 Last Admin: 09/23/17 08:44 Dose: 6.25 mg Dextrose/Water (Dextrose 50% (Syg)) 25 ml IVP AD PRN PRN Reason: Hypoglycemia Stop: 03/24/18 04:27 Enoxaparin Sodium (Lovenox) 40 mg SQ 0600 ANAHY PRN Reason: Protocol Stop: 03/25/18 06:01 Last Admin: 09/23/17 06:20 Dose: 40 mg Furosemide (Lasix) 40 mg IVP BIDDIURETIC ANAHY Stop: 03/24/18 08:01 Last Admin: 09/23/17 08:44 Dose: 40 mg Glucagon (Glucagen) 1 mg IM ONCE PRN PRN Reason: Hypoglycemia Stop: 03/24/18 04:27 Glucose (Gluctose) 15 gm PO ONCE PRN PRN Reason: Hypoglycemia Stop: 03/24/18 04:27 Glucose (Gluctose) 30 gm PO ONCE PRN PRN Reason: Hypoglycemia Stop: 03/24/18 04:27 Heparin Sodium (Porcine) (Heparin Lock) 500 unit IV ONCE PRN PRN Reason: Port Flush while in RADIOLOGY Stop: 09/24/17 01:15 Dextrose (Dextrose 5%) 1,000 mls @ 100 mls/hr IVC .Q10H PRN PRN Reason: HYPOGLYCEMIA Stop: 03/24/18 04:27 Levofloxacin/Dextrose (Levaquin Premix 750mg/150 Ml) 750 mg in 150 mls @ 100 mls/hr IVPB DAILY ANAHY PRN Reason: Protocol Stop: 03/24/18 09:01 Last Admin: 09/23/17 08:43 Dose: 100 mls/hr Dobutamine HCl/Dextrose (Dobutamine Premix 250 Mg/250 Ml) 250 mg in 250 mls @ 15.675 mls/hr IVC .[id number] ANAHY; 2.5 MCG/KG/MIN PRN Reason: Protocol Stop: 03/24/18 15:16 Last Titration: 09/23/17 06:19 Dose: 2.42 mcg/kg/min, 15.2 mls/hr Insulin Detemir (Levemir) 30 unit SQ HS [facility] Stop: 03/24/18 04:31 Last Admin: 09/22/17 22:59 Dose: 30 unit Insulin Human Lispro (Humalog) 0 units SQ HS ANAHY PRN Reason: Protocol Stop: 03/24/18 21:01 Last Admin: 09/22/17 22:55 Dose: 3 units Insulin Human Lispro (Humalog) 0 units SQ TIDAC [facility] PRN Reason: Protocol Stop: 03/24/18 04:31 Last Admin: 09/23/17 08:39 Dose: Not Given Lisinopril (Zestril) 20 mg PO DAILY [facility] PRN Reason: Protocol Stop: 03/25/18 09:01 Last Admin: 09/23/17 08:44 Dose: 20 mg Naloxone HCl (Narcan) 0.4 mg IVP Q2MIN PRN PRN Reason: SEE COMMENTS Stop: 03/24/18 06:28 Oxycodone/Acetaminophen (Percocet 7.5/325) 1 each PO Q6HR PRN PRN Reason: Severe Pain Stop: 03/24/18 05:20 Last Admin: 09/22/17 23:02 Dose: 1 each Pharmacy Profile Note (Patient Taking Own Medication) 0 each TP QID PRN PRN Reason: Pain Potassium Chloride (Potassium Chloride) 40 meq PO BID [facility] Stop: 09/23/17 21:01 Last Admin: 09/23/17 08:44 Dose: 40 meq Ropinirole HCl (Requip) 0.5 mg PO HS [facility] Stop: 03/24/18 21:01 Last Admin: 09/22/17 22:54 Dose: 0.5 mg - Imaging and Cardiology Stress Test: report reviewed Echo: report reviewed Other Results: 12 hour tele: avg HR=78 SR. Frequent PVCs noted. - EKG Interpretation EKG results cardiology: personally reviewed Consult Discharge Plan - Plan Referrals: Lonnie Sanchez, PAC [Primary Care Provider] -
[2017-09-23 12:04] LABS: Estimated Average Glucose 235 mg/dl; Hemoglobin A1C 9.8 %
--- NOTE | 2017-09-23 14:36 | Internal Med Progress Note ---
Date of Encounter: 09/23/17 Time of Encounter: 09:00 - Assessment and plan (1) Pneumonia Current Visit: Yes Status: Suspected Assessment and plan: CT angiogram of chest shows possible bibasal infiltrates, atelectasis versus pneumonia. Respiratory infection panel positive for parainfluenza 3, which probably accounts for most of her respiratory symptoms. Continue IV Levaquin and supportive care. Preliminary blood cultures negative. Supplemental oxygen as needed. Qualifiers: Pneumonia type: due to unspecified organism Laterality: bilateral Lung location: lower lobe of lung Qualified Code(s): J18.1 - Lobar pneumonia, unspecified organism (2) Acute on chronic systolic (congestive) heart failure Current Visit: Yes Status: Acute Assessment and plan: Echocardiogram at admission shows severely decreased ejection fraction around 15 -20%, indeterminate diastolic function, moderate LV dilation, mild to moderate tricuspid regurgitation, severe pulmonary hypertension. Cardiology on board. Continue diuresis with IV Lasix, has been on dobutamine drip, hold TANK inhibitor. Fluid restriction, urine output monitoring. 1.3 L net negative fluid balance. Continue telemetry monitoring. Troponin negative. (3) Diabetes Current Visit: Yes Status: Chronic Assessment and plan: Blood sugars noted to be elevated. Continue Levemir, increase sliding scale insulin. Diabetic diet. Hemoglobin A1c noted to be 9.8%. Qualifiers: Diabetes mellitus type: type 2 Diabetes mellitus intermodal customer service insulin use: with intermodal customer service use Diabetes mellitus complication status: with unspecified complications Qualified Code(s): E11.8 - Type 2 diabetes mellitus with unspecified complications; Z79.4 - oil heaterman (current) use of insulin (4) Hyperlipidemia Current Visit: Yes Status: Chronic Qualifiers: Hyperlipidemia type: unspecified Qualified Code(s): E78.5 - Hyperlipidemia , unspecified (5) AICD (automatic cardioverter/defibrillator) present Current Visit: Yes Status: Chronic Assessment and plan: Device check completed. Per cardiology-One episode of V. fib treated on July 21 with successful ATP, 190 NSVT episodes. Good battery life, normal device function. (6) Chronic pain Current Visit: Yes Status: Chronic Assessment and plan: Follows with pain management for chronic back pain. Qualifiers: Chronic pain type: other chronic pain Qualified Code(s): G89.29 - Other chronic pain (7) NICM (nonischemic cardiomyopathy) Current Visit: Yes Status: Chronic Assessment and plan: Plan as above. Left heart catheterization in 2016 showed minimal coronary artery disease. (8) Essential hypertension Current Visit: Yes Status: Chronic (9) Low back pain Current Visit: Yes Status: Acute Assessment and plan: Acute on chronic low back pain due to recent fall. Pain control and supportive care. Qualifiers: Chronicity: acute Back pain laterality: unspecified Sciatica presence: unspecified whether sciatica present Qualified Code(s): M54.5 - Low back pain (10) Fall Current Visit: Yes Status: Acute Assessment and plan: Due to generalized weakness and CHF. Physical and occupational therapy evaluation. Qualifiers: Encounter type: initial encounter Qualified Code(s): W19.XXXA - Unspecified fall, initial encounter (11) DVT prophylaxis Current Visit: Yes Status: Acute - Time Spent With Patient Total time spent is greater than 50% in coordination of care (as documented) at patient's floor/unit and/or counseling patient: - Subjective Interval history: Reports feeling better with improved leg swelling and shortness of breath; patient has poor outpatient f/up, lives alone; no chest pain, palpitations, dizziness, nausea, blurred vision; - Constitutional Vitals: Temp Pulse Resp BP Pulse Ox 98.5 F 77 18 127/79 90 09/23/17 11:10 09/23/17 11:10 09/23/17 11:10 09/23/17 11:10 09/23/17 11:10 General appearance: Present: A&O X 3, answers questions appropriately - Respiratory Respiratory exam: Present: rales (bibasal). Absent: accessory muscle use, rhonchi, wheezes - Cardiovascular Cardiovascular exam: Present: RRR, +S1, +S2. Absent: diastolic murmur, gallop, rubs, systolic murmur - GI/Abdominal GI/Abdominal exam: Present: normal bowel sounds, soft, no peritoneal signs. Absent: distended, tenderness - Extremities Exam Extremities exam: Present: pedal edema (1+ pitting pedal edema B/L), warm, radial pulses palpable and symmetrical. Absent: calf tenderness, cyanotic - Neurological Exam Neurological exam: Present: CN II-XII intact, oriented X3, no focal deficits. Absent: pronater drift, facial droop, speech deficit Internal Medicine: Result - Labs CBC & Chem 7: 09/23/17 02:27 09/23/17 02:27 Labs: Short CBC 09/23/17 Range/Units 02:27 WBC 9.1 (4.3-11.1) K/mcL Hgb 14.0 (11.5-15.4) g/dL Hct 42.3 (35.3-44.9) % Plt Count 220 (140-400) K/mcL Neutrophils # 6.0 (1.6-8.9) K/mcL BMP 09/23/17 02:27 Sodium 139 Potassium 3.7 Chloride 103 Carbon Dioxide 28 BUN 19 Creatinine 0.91 Glucose 165 H Calcium 8.9 - ABG Interpretation ABG results: PT/INR, D-dimer PT 14.9 Seconds (9.4-12.1) H 09/21/17 22:51 D-Dimer 533 ng/mLFEU (0-500) H 09/21/17 22:51 - Impressions Impressions Chest X-Ray 09/23/17 08:00 IMPRESSION: Atelectasis or infiltrate in the right lung base. Stable cardiomegaly. Pacemaker. D/ / 09/23/2017 07:32:05 Jany Meng MD / nadine Interpreting Provider: Jany Meng MD Consult Discharge Plan - Plan Referrals: Lonnie Sanchez, PAC [Primary Care Provider] -
[2017-09-23] MEDS: *HR* OxyCODONE/APAP 7.5/325 TABLET PO PRN (17:06)
[2017-09-23] MEDS: Insulin DETEMIR 100 UNIT/ML X5UNITS SQ SCH (21:27)
[2017-09-23] MEDS: rOPINIRole 0.25 MG TABLET PO SCH (21:27)
[2017-09-24] MEDS: *HR* OxyCODONE/APAP 7.5/325 TABLET PO PRN ×2 (01:02→14:16)
[2017-09-24] MEDS: Ipratropium/Albuterol Neb 3 ML IH SCH ×4 (04:07→21:24)
[2017-09-24] MEDS: *HR* Enoxaparin 40 MG/0.4 ML SYRINGE SQ SCH (05:09)
[2017-09-24 05:14] LABS: Basophils # 0.1 K/mcL (0.0-0.2); Basophils % 0.6 %; Eosinophils # 0.2 K/mcL (0.0-0.6); Eosinophils % 2.5 %; Hematocrit 44.7 % (35.3-44.9); Hemoglobin 14.8 g/dL (11.5-15.4); Immature Granulocytes % 0.6 % (0-4); Lymphocytes # 1.9 K/mcL (0.6-4.6); Lymphocytes % 23.3 %; Mean Corpuscular HGB Conc 33.1 g/dL (31.6-35.5); Mean Corpuscular Volume 78.4 fL (83.0-100.0); Mean Platelet Volume 9.9 fL (9.4-12.4); Monocytes # 0.7 K/mcL (0.0-1.3); Neutrophils # 5.4 K/mcL (1.6-8.9); Nucleated Red Blood Cells 0.2 /100 WBC (0); Platelet Count 239 K/mcL (140-400); Red Cell Distribution Width 14.5 % (11.5-14.5)
[2017-09-24 05:25] LABS: BUN/Creatinine Ratio 22 (6-26); Blood Urea Nitrogen 19 mg/dL (6-20); Carbon Dioxide 24 mEq/L (23-29); Chloride 103 mEq/L (98-107); Glucose 166 mg/dL (70-105); Osmolality,Calculated 290 (280-300); Potassium 4.1 mEq/L (3.5-5.1); Sodium 137 mEq/L (136-145); eGFR For African Americans > 60 (> 60); eGFR For Non-African Americans > 60 (> 60)
[2017-09-24] MEDS ORDERED: 0.9 % Sodium Chloride 250 ML ONE (08:29)
[2017-09-24] MEDS: Furosemide 40 MG/4 ML VIAL IVP SCH ×2 (08:32→17:16)
[2017-09-24] MEDS: Insulin LISPRO 300 UNITS/3 ML VIAL SQ SCH ×4 (08:32→21:21)
[2017-09-24] MEDS: Levofloxacin 750 MG/150 ML 750 MG/150 ML BAG IVPB SCH (08:33)
--- NOTE | 2017-09-24 10:02 | Cardiology Progress Note ---
Date of Encounter: 09/24/17 Time of Encounter: 09:30 Assessment and Plan (1) Acute on chronic systolic (congestive) heart failure Current Visit: Yes Status: Acute Acute decompensation HF. Reports NYHA class III symptoms. CXR: stable CHF. No overt volume overload upon exam. Known NICMP (2010) s/p ICD. Pt. reports gen. change at [facility] in 2017, has not had device checked in >1 year. Poor outpatient follow-up. Inpatient device check 09/22: good battery life, normal device function, 1 episode treated in VF zone 07/21/17 with successful ATP; 190 NSVT episodes. Last check 08/23/16. On IV lasix. Dobutamine gtt started 09/23 symptoms improving. Increased to 5 mcg/ kg/min on 09/23 PM. Cumulative I&O: -1603 mL. On BB. Will resume ACEi at decreased dose. Strict I&Os, daily weights, Na/fluid restricted diet. Reviewed [facility] records August 2016: TTE 2017: EF less than 20% LHC 2017: minimal non-obstructive CAD Gen change: single-lead ICD gen change. (2) NICM (nonischemic cardiomyopathy) Current Visit: Yes Status: Chronic Hx of NICMP, known EF 15-20% Last ischemic evaluation 2017 at [facility]--minimal non-obstructive CAD Discussion w patient/family: The assessment and plan as outlined above was discussed with the patient and/or family members who expressed understanding and agreement. All questions were answered. Thank you for involving us in the care of your patient. Please call with any questions. The patient will be discussed and reviewed with Dr. Sood, changes to be made accordingly. Subjective Principal diagnosis: NICMP Interval history: Seen and examined. Reports shortness of breath improving. Reports legs continue to "feel better" Objective Vital Signs, Last 4 Hours Temp Pulse Resp BP Pulse Ox 09/24/17 09:15 16 93 09/24/17 07:22 98.2 F 87 16 144/77 92 09/24/17 06:00 74 148/92 General: Conversant, No Apparent Distress HEENT: Atraumatic, Normocephaly, Mucus Membranes Moist Cardiac: Reg Rate and Rhythm, Normal S1 and S2 Lungs: Other (Expiratory wheezes) Neuro: Alert and responsive Abdomen: Soft Skin: No rashes noted on visualized skin Musculoskeletal: No Chest Wall Tenderness Extremities: Other (bilateral LE discoloration, dusky in appearance) Results 09/24/17 04:41 09/24/17 04:41 Lab Results 09/24/17 09/24/17 04:41 04:41 WBC 8.3 Hgb 14.8 Hct 44.7 Plt Count 239 Sodium 137 Potassium 4.1 Chloride 103 Carbon Dioxide 24 BUN 19 Creatinine 0.86 Glucose 166 H Calcium 9.0 Active Medications Acetaminophen (Tylenol) 650 mg PO Q6HR PRN PRN Reason: Mild Pain/Fever Stop: 03/24/18 06:28 Albuterol/Ipratropium (Duoneb) 3 ml IH [id number] ANAHY Stop: 03/24/18 04:31 Last Admin: 09/24/17 09:15 Dose: 3 ml Carvedilol (Coreg) 6.25 mg PO BID ANAHY PRN Reason: Protocol Stop: 03/24/18 21:01 Last Admin: 09/24/17 08:32 Dose: 6.25 mg Dextrose/Water (Dextrose 50% (Syg)) 25 ml IVP AD PRN PRN Reason: Hypoglycemia Stop: 03/24/18 04:27 Enoxaparin Sodium (Lovenox) 40 mg SQ 0600 ANAHY PRN Reason: Protocol Stop: 03/25/18 06:01 Last Admin: 09/24/17 05:09 Dose: 40 mg Furosemide (Lasix) 40 mg IVP BIDDIURETIC ANAHY Stop: 03/24/18 08:01 Last Admin: 09/24/17 08:32 Dose: 40 mg Glucagon (Glucagen) 1 mg IM ONCE PRN PRN Reason: Hypoglycemia Stop: 03/24/18 04:27 Glucose (Gluctose) 15 gm PO ONCE PRN PRN Reason: Hypoglycemia Stop: 03/24/18 04:27 Glucose (Gluctose) 30 gm PO ONCE PRN PRN Reason: Hypoglycemia Stop: 03/24/18 04:27 Dextrose (Dextrose 5%) 1,000 mls @ 100 mls/hr IVC .Q10H PRN PRN Reason: HYPOGLYCEMIA Stop: 03/24/18 04:27 Levofloxacin/Dextrose (Levaquin Premix 750mg/150 Ml) 750 mg in 150 mls @ 100 mls/hr IVPB DAILY ANAHY PRN Reason: Protocol Stop: 03/24/18 09:01 Last Admin: 09/24/17 08:33 Dose: 100 mls/hr Dobutamine HCl/Dextrose (Dobutamine Premix 250 Mg/250 Ml) 250 mg in 250 mls @ 31.35 mls/hr IVC .Q7H59M ANAHY PRN Reason: 5 MCG/KG/MIN Stop: 03/25/18 13:11 Last Admin: 09/24/17 03:03 Dose: 5 mcg/kg/min, 31.35 mls/hr Insulin Detemir (Levemir) 30 unit SQ HS [facility] Stop: 03/24/18 04:31 Last Admin: 09/23/17 21:27 Dose: 30 unit Insulin Human Lispro (Humalog) 0 units SQ TIDAC ANAHY PRN Reason: Protocol Stop: 03/25/18 16:31 Last Admin: 09/24/17 08:32 Dose: 6 units Insulin Human Lispro (Humalog) 0 units SQ HS ANAHY PRN Reason: Protocol Stop: 03/25/18 21:01 Last Admin: 09/23/17 21:27 Dose: Not Given Naloxone HCl (Narcan) 0.4 mg IVP Q2MIN PRN PRN Reason: SEE COMMENTS Stop: 03/24/18 06:28 Oxycodone/Acetaminophen (Percocet 7.5/325) 1 each PO Q6HR PRN PRN Reason: Severe Pain Stop: 03/24/18 05:20 Last Admin: 09/24/17 01:02 Dose: 1 each Pharmacy Profile Note (Patient Taking Own Medication) 0 each TP QID PRN PRN Reason: Pain Ropinirole HCl (Requip) 0.5 mg PO HS [facility] Stop: 03/24/18 21:01 Last Admin: 09/23/17 21:27 Dose: 0.5 mg - Imaging and Cardiology Echo: report reviewed Cardiac cath: report reviewed Other Results: 12 hour tele: avg HR=85 SR. PVCs noted. - EKG Interpretation EKG results cardiology: personally reviewed Consult Discharge Plan - Plan Referrals: Lonnie Sanchez, PAC [Primary Care Provider] -
--- NOTE | 2017-09-24 14:45 | Electrocardiograph Report ---
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
--- NOTE | 2017-09-24 16:36 | Internal Med Progress Note ---
Date of Encounter: 09/24/17 Time of Encounter: 09:40 - Assessment and plan (1) Pneumonia Current Visit: Yes Status: Suspected Assessment and plan: CT angiogram of chest shows possible bibasal infiltrates, atelectasis versus pneumonia. Respiratory infection panel positive for parainfluenza 3, which probably accounts for most of her respiratory symptoms. Continue IV Levaquin and supportive care. Preliminary blood cultures negative. Supplemental oxygen as needed. Qualifiers: Pneumonia type: due to unspecified organism Laterality: bilateral Lung location: lower lobe of lung Qualified Code(s): J18.1 - Lobar pneumonia, unspecified organism (2) Acute on chronic systolic (congestive) heart failure Current Visit: Yes Status: Acute Assessment and plan: Echocardiogram at admission shows severely decreased ejection fraction around 15 -20%, indeterminate diastolic function, moderate LV dilation, mild to moderate tricuspid regurgitation, severe pulmonary hypertension. Cardiology on board. Continue diuresis with IV Lasix, has been on dobutamine drip since 09/22, increased to 5mcg/kg/min on 09/23, restarted TANK inhibitor today at a low dose. Fluid restriction, urine output monitoring. 1.7 L net negative fluid balance, probably not effective enough due to IV meds. Continue telemetry monitoring. Troponin negative. [place] records showed low EF around 20%, normal LHC per Cardiology notes; (3) Diabetes Current Visit: Yes Status: Chronic Assessment and plan: Blood sugars better controlled, with few elevated readings; Continue Levemir and sliding scale insulin. Diabetic diet. Hemoglobin A1c noted to be 9.8%. Qualifiers: Diabetes mellitus type: type 2 Diabetes mellitus [facility] insulin use: with [facility] use Diabetes mellitus complication status: with unspecified complications Qualified Code(s): E11.8 - Type 2 diabetes mellitus with unspecified complications; Z79.4 - senior care (current) use of insulin (4) Hyperlipidemia Current Visit: Yes Status: Chronic Qualifiers: Hyperlipidemia type: unspecified Qualified Code(s): E78.5 - Hyperlipidemia , unspecified (5) AICD (automatic cardioverter/defibrillator) present Current Visit: Yes Status: Chronic (6) Chronic pain Current Visit: Yes Status: Chronic Assessment and plan: Follows with pain management for chronic back pain. Qualifiers: Chronic pain type: other chronic pain Qualified Code(s): G89.29 - Other chronic pain (7) NICM (nonischemic cardiomyopathy) Current Visit: Yes Status: Chronic Assessment and plan: Plan as above. Left heart catheterization in 2016 showed minimal coronary artery disease. (8) Essential hypertension Current Visit: Yes Status: Chronic (9) Low back pain Current Visit: Yes Status: Acute Qualifiers: Chronicity: acute Back pain laterality: unspecified Sciatica presence: unspecified whether sciatica present Qualified Code(s): M54.5 - Low back pain (10) Fall Current Visit: Yes Status: Acute Assessment and plan: Due to generalized weakness and CHF. Physical and occupational therapy evaluation. Qualifiers: Encounter type: initial encounter Qualified Code(s): W19.XXXA - Unspecified fall, initial encounter (11) DVT prophylaxis Current Visit: Yes Status: Acute - Time Spent With Patient Total time spent is greater than 50% in coordination of care (as documented) at patient's floor/unit and/or counseling patient: - Subjective Interval history: Appears somewhat depressed but denies new complaints; improving shortness of breath; no chest pain, palpitations, leg swelling; continues to require supplemental O2; - Constitutional Vitals: Temp Pulse Resp BP Pulse Ox 98 F 79 16 150/81 94 09/24/17 11:09 09/24/17 11:09 09/24/17 16:31 09/24/17 11:09 09/24/17 16:31 General appearance: Present: A&O X 3, answers questions appropriately - Respiratory Respiratory exam: Present: CTAB. Absent: accessory muscle use, rales, rhonchi, wheezes - Cardiovascular Cardiovascular exam: Present: RRR, +S1, +S2. Absent: diastolic murmur, gallop, rubs, systolic murmur - GI/Abdominal GI/Abdominal exam: Present: normal bowel sounds, soft, no peritoneal signs. Absent: distended, tenderness - Extremities Exam Extremities exam: Present: cyanotic (distal feet), full ROM, warm, radial pulses palpable and symmetrical. Absent: calf tenderness, pedal edema Additional comments: strong distal pedal pulses+ - Neurological Exam Neurological exam: Present: CN II-XII intact, oriented X3, no focal deficits. Absent: pronater drift, facial droop, speech deficit Internal Medicine: Result - Labs CBC & Chem 7: 09/24/17 04:41 09/24/17 04:41 Labs: Short CBC 09/24/17 Range/Units 04:41 WBC 8.3 (4.3-11.1) K/mcL Hgb 14.8 (11.5-15.4) g/dL Hct 44.7 (35.3-44.9) % Plt Count 239 (140-400) K/mcL Neutrophils # 5.4 (1.6-8.9) K/mcL BMP 09/24/17 04:41 Sodium 137 Potassium 4.1 Chloride 103 Carbon Dioxide 24 BUN 19 Creatinine 0.86 Glucose 166 H Calcium 9.0 - ABG Interpretation ABG results: PT/INR, D-dimer PT 14.9 Seconds (9.4-12.1) H 09/21/17 22:51 D-Dimer 533 ng/mLFEU (0-500) H 09/21/17 22:51 Consult Discharge Plan - Plan Referrals: Lonnie Sanchez, PAC [Primary Care Provider] - (Dr. Sanchez is no longer at this office, Patient does not want me to find her a doctor)
[2017-09-24] MEDS: Insulin DETEMIR 100 UNIT/ML X5UNITS SQ SCH (21:20)
[2017-09-24] MEDS: rOPINIRole 0.25 MG TABLET PO SCH (21:21)
[2017-09-25] MEDS: Ipratropium/Albuterol Neb 3 ML IH SCH ×4 (04:53→22:03)
[2017-09-25] MEDS: *HR* Enoxaparin 40 MG/0.4 ML SYRINGE SQ SCH (05:42)
[2017-09-25] MEDS: *HR* OxyCODONE/APAP 7.5/325 TABLET PO PRN (05:46)
[2017-09-25] MEDS: Furosemide 40 MG/4 ML VIAL IVP SCH ×2 (08:03→17:40)
[2017-09-25] MEDS: levoFLOXacin 750 MG TABLET PO SCH (08:04)
[2017-09-25] MEDS: Insulin LISPRO 300 UNITS/3 ML VIAL SQ SCH ×4 (09:12→20:26)
--- NOTE | 2017-09-25 13:15 | Cardiology Progress Note ---
Date of Encounter: 09/25/17 Time of Encounter: 13:00 Assessment and Plan (1) Acute on chronic systolic (congestive) heart failure Current Visit: Yes Status: Acute Acute decompensation HF. Reports NYHA class III symptoms. CXR: stable CHF. No overt volume overload upon exam. Known NICMP (2010) s/p ICD. Pt. reports gen. change at [place] in 2017, has not had device checked in >1 year. Poor outpatient follow-up. Inpatient device check 09/22: good battery life, normal device function, 1 episode treated in VF zone 07/21/17 with successful ATP; 190 NSVT episodes. Last check 08/23/16. On IV lasix. Hypotension noted today, d/w , will stop IV dobutamine gtt. Continue IV diuresis. Cumulative I&O: -2725 mL. On BB, ACEi Strict I&Os, daily weights, Na/fluid restricted diet. Reviewed [facility] records August 2016: TTE 2017: EF less than 20% LHC 2017: minimal non-obstructive CAD Gen change: single-lead ICD gen change. (2) NICM (nonischemic cardiomyopathy) Current Visit: Yes Status: Chronic Hx of NICMP, known EF 15-20% Last ischemic evaluation 2017 at [place]--minimal non-obstructive CAD Discussion w patient/family: The assessment and plan as outlined above was discussed with the patient and/or family members who expressed understanding and agreement. All questions were answered. Thank you for involving us in the care of your patient. Please call with any questions. The patient will be discussed and reviewed with Dr. Sood, changes to be made accordingly. Subjective Principal diagnosis: NICMP Interval history: Seen and examined. Reports shortness of breath improving. Reports legs continue to "feel better" Continues to report abdominal tightness. No chest pain or any other symptoms reported. Objective Vital Signs, Last 4 Hours Temp Pulse Resp BP Pulse Ox 09/25/17 12:09 81 109/70 89 09/25/17 11:12 97.6 F 78 16 134/88 89 09/25/17 11:05 97.6 F 78 16 134/88 89 09/25/17 10:44 16 90 General: Conversant, No Apparent Distress HEENT: Atraumatic, Normocephaly, Mucus Membranes Moist Cardiac: Reg Rate and Rhythm, Normal S1 and S2 Lungs: Normal Breath Sounds Neuro: Alert and responsive Abdomen: Soft Skin: No rashes noted on visualized skin Musculoskeletal: No Chest Wall Tenderness Extremities: Other (bilateral LE discoloration, dusky in appearance) Results 09/24/17 04:41 09/24/17 04:41 Active Medications Acetaminophen (Tylenol) 650 mg PO Q6HR PRN PRN Reason: Mild Pain/Fever Stop: 03/24/18 06:28 Albuterol/Ipratropium (Duoneb) 3 ml IH [id number] [facility] Stop: 03/24/18 04:31 Last Admin: 09/25/17 10:44 Dose: 3 ml Carvedilol (Coreg) 6.25 mg PO BIDWM ANAHY PRN Reason: Protocol Stop: 03/24/18 21:01 Last Admin: 09/25/17 08:04 Dose: 6.25 mg Dextrose/Water (Dextrose 50% (Syg)) 25 ml IVP AD PRN PRN Reason: Hypoglycemia Stop: 03/24/18 04:27 Enoxaparin Sodium (Lovenox) 40 mg SQ 0600 ANAHY PRN Reason: Protocol Stop: 03/25/18 06:01 Last Admin: 09/25/17 05:42 Dose: 40 mg Furosemide (Lasix) 40 mg IVP BIDDIURETIC ANAHY Stop: 03/24/18 08:01 Last Admin: 09/25/17 08:03 Dose: 40 mg Glucagon (Glucagen) 1 mg IM ONCE PRN PRN Reason: Hypoglycemia Stop: 03/24/18 04:27 Glucose (Gluctose) 15 gm PO ONCE PRN PRN Reason: Hypoglycemia Stop: 03/24/18 04:27 Glucose (Gluctose) 30 gm PO ONCE PRN PRN Reason: Hypoglycemia Stop: 03/24/18 04:27 Dextrose (Dextrose 5%) 1,000 mls @ 100 mls/hr IVC .Q10H PRN PRN Reason: HYPOGLYCEMIA Stop: 03/24/18 04:27 Insulin Detemir (Levemir) 30 unit SQ HS [facility] Stop: 03/24/18 04:31 Last Admin: 09/24/17 21:20 Dose: 30 unit Insulin Human Lispro (Humalog) 0 units SQ TIDAC ANAHY PRN Reason: Protocol Stop: 03/25/18 16:31 Last Admin: 09/25/17 12:02 Dose: 8 units Insulin Human Lispro (Humalog) 0 units SQ HS ANAHY PRN Reason: Protocol Stop: 03/25/18 21:01 Last Admin: 09/24/17 21:21 Dose: 4 units Levofloxacin (Levaquin) 750 mg PO DAILY [facility] Stop: 03/27/18 09:01 Last Admin: 09/25/17 08:04 Dose: 750 mg Lisinopril (Zestril) 5 mg PO DAILY ANAHY PRN Reason: Protocol Stop: 03/26/18 10:16 Last Admin: 09/25/17 08:04 Dose: 5 mg Naloxone HCl (Narcan) 0.4 mg IVP Q2MIN PRN PRN Reason: SEE COMMENTS Stop: 03/24/18 06:28 Oxycodone/Acetaminophen (Percocet 7.5/325) 1 each PO Q6HR PRN PRN Reason: Severe Pain Stop: 03/24/18 05:20 Last Admin: 09/25/17 05:46 Dose: 1 each Ropinirole HCl (Requip) 0.5 mg PO HS [facility] Stop: 03/24/18 21:01 Last Admin: 09/24/17 21:21 Dose: 0.5 mg - Imaging and Cardiology Echo: report reviewed Cardiac cath: report reviewed Other Results: 12 hour tele: avg HR=85. Frequent PVCs - EKG Interpretation EKG results cardiology: personally reviewed Consult Discharge Plan - Plan Referrals: Lonnie Sanchez, PAC [Primary Care Provider] - (Dr. Sanchez is no longer at this office, Patient does not want me to find her a doctor)
[2017-09-25] MEDS: rOPINIRole 0.25 MG TABLET PO SCH (20:25)
[2017-09-25] MEDS: Insulin DETEMIR 100 UNIT/ML X5UNITS SQ SCH (20:26)
--- NOTE | 2017-09-25 23:36 | Internal Med Progress Note ---
Date of Encounter: 09/25/17 Time of Encounter: 17:30 - Assessment and plan (1) Pneumonia Current Visit: Yes Status: Suspected Assessment and plan: The patient was recently admitted with fever and difficulty breathing. Echocardiogram done at admission showed ejection fraction of 15-20%; she has an AICD present. Blood cultures are negative so far. Urine testing for Legionella and Streptococcus pneumoniae antigens is negative. Cryptococcus antigen in serum is negative. We will continue Levaquin and supportive treatments. We will repeat chest x- ray in the morning. Qualifiers: Pneumonia type: due to unspecified organism Laterality: bilateral Lung location: lower lobe of lung Qualified Code(s): J18.1 - Lobar pneumonia, unspecified organism (2) Acute on chronic systolic (congestive) heart failure Current Visit: Yes Status: Acute Assessment and plan: Her echocardiogram done at admission showed ejection fraction of 15-20%. Cardiology is consulted. She gets IV Lasix, carvedilol and low-dose of lisinopril. She is on fluid restriction. She will have repeated chest x-ray in the morning. (3) ICD (implantable cardioverter-defibrillator) in place Current Visit: Yes Status: Chronic Assessment and plan: The patient has inserted AICD. This is due to severe systolic heart failure. (4) Type 2 diabetes mellitus with hyperglycemia Current Visit: Yes Status: Acute Assessment and plan: She does have slightly elevated fingersticks for glucose. Her hemoglobin A1c is 9.8%. We will continue diabetic diet with insulin Levemir and when necessary insulin Humalog. We will do adjustments to her insulinS, if needed. Qualifiers: Diabetes mellitus [facility] insulin use: with government services professional use Qualified Code( s): E11.65 - Type 2 diabetes mellitus with hyperglycemia; Z79.4 - [facility] ( current) use of insulin - Time Spent With Patient Total time spent is greater than 50% in coordination of care (as documented) at patient's floor/unit and/or counseling patient: 25 - 35 minutes - Subjective Interval history: The patient feels better. Her fever subsided. She does have mild cough but not wheezing. She continues to have generalized aching in her muscles. Denies headache. She denies abdominal pain, nausea and vomiting. She has no diarrhea. She has normal urination. - Constitutional Vitals: Temp Pulse Resp BP Pulse Ox 98.4 F 84 18 124/96 92 05/22/18 19:15 09/25/17 19:15 09/25/17 22:05 09/25/17 19:15 09/25/17 22:05 General appearance: Present: A&O X 3, no acute distress, answers questions appropriately - Respiratory Respiratory exam: Present: CTAB. Absent: rales, rhonchi, wheezes - Cardiovascular Cardiovascular exam: Present: RRR. Absent: distant heart sounds, gallop, systolic murmur - GI/Abdominal GI/Abdominal exam: Present: soft. Absent: mass, splenomegaly, tenderness - Skin Skin exam: Present: dry, intact Internal Medicine: Result - Labs CBC & Chem 7: 09/24/17 04:41 09/24/17 04:41 - ABG Interpretation ABG results: PT/INR, D-dimer PT 14.9 Seconds (9.4-12.1) H 09/21/17 22:51 D-Dimer 533 ng/mLFEU (0-500) H 09/21/17 22:51 - VTE Deep Vein Thrombosis/Pulmonary Embolism Present on Admission: No Consult Discharge Plan - Plan Referrals: Lonnie Sanchez, PAC [Primary Care Provider] - (Dr. Sanchez is no longer at this office, Patient does not want me to find her a doctor)
[2017-09-26] MEDS: Ipratropium/Albuterol Neb 3 ML IH SCH ×4 (03:56→22:53)
[2017-09-26] MEDS: *HR* Enoxaparin 40 MG/0.4 ML SYRINGE SQ SCH (05:56)
[2017-09-26] MEDS: Furosemide 40 MG/4 ML VIAL IVP SCH ×2 (08:06→16:46)
[2017-09-26] MEDS: levoFLOXacin 750 MG TABLET PO SCH (08:07)
[2017-09-26] MEDS: Insulin LISPRO 300 UNITS/3 ML VIAL SQ SCH ×4 (08:14→20:55)
--- NOTE | 2017-09-26 12:13 | Cardiology Progress Note ---
Date of Encounter: 09/26/17 Time of Encounter: 12:00 Assessment and Plan (1) Acute on chronic systolic (congestive) heart failure Current Visit: Yes Status: Acute Presented with acute decompensation HF. Reported NYHA class III symptoms. Known NICMP (2010) s/p ICD. Pt. reports gen. change at [place] in 2017, has not had device checked in >1 year. Poor outpatient follow-up. Inpatient device check completed 09/22: good battery life, normal device function , 1 episode treated in VF zone 07/21/17 with successful ATP; 190 NSVT episodes. Last check 08/23/16. [place] records August 2016: TTE 2017: EF less than 20% [facility] 2017: minimal non-obstructive CAD Gen change: single-lead ICD gen change. On IV lasix. B/p improved, now off dobutamine gtt. Diuresing well. 24 negative 1134, net negative 3395. Near euvolemic on exam. Change to oral lasix tomorrow. On BB, ACEi Strict I&Os, daily weights, Na/fluid restricted diet. CHF education, low sodium diet, daily weights reviewed with patient. Check BMP (2) NICM (nonischemic cardiomyopathy) Current Visit: Yes Status: Chronic Hx of NICMP, known EF 15-20% Last ischemic evaluation 2017 at [place]--minimal non-obstructive CAD Discussion w patient/family: The assessment and plan as outlined above was discussed with the patient and/or family members who expressed understanding and agreement. All questions were answered. Thank you for involving us in the care of your patient. Please call with any questions. Subjective Principal diagnosis: NICMP Interval history: Ms. Song reports she is feeling unwell due to blood sugar being in the 70's this morning. Last blood sugar 160. C/o feeling weak. Denies chest pain. SOB improving. C/o cough productive of yellow sputum this morning. Objective Vital Signs, Last 4 Hours Temp Pulse Resp BP Pulse Ox 09/26/17 11:25 98.3 F 76 18 111/75 92 09/26/17 10:38 22 88 General: Conversant, No Apparent Distress HEENT: Atraumatic, Normocephaly, Mucus Membranes Moist Neck: No JVD, Normal carotid pulses Cardiac: Reg Rate and Rhythm, Normal S1 and S2, No Murmur Lungs: Other (respirations easy, rhonci scattered throughout. ) Neuro: Alert and responsive, No focal deficits noted Abdomen: Soft, Non-Tender Skin: No rashes noted on visualized skin Musculoskeletal: No Chest Wall Tenderness Extremities: No Clubbing, No Cyanosis, No Edema, Normal Pulses Results 09/24/17 04:41 09/24/17 04:41 - Imaging and Cardiology Echo: report reviewed - EKG Interpretation EKG results cardiology: personally reviewed - VTE Deep Vein Thrombosis/Pulmonary Embolism Present on Admission: No Consult Discharge Plan - Plan Referrals: Lonnie Sanchez, PAC [Primary Care Provider] - (Dr. Sanchez is no longer at this office, Patient does not want me to find her a doctor)
[2017-09-26 16:14] LABS: Calcium 9.1 mg/dL (8.6-10.3)
[2017-09-26] MEDS ORDERED: 0.9 % Sodium Chloride 250 ML IVC ONE (17:52)
[2017-09-26] MEDS: Insulin DETEMIR 100 UNIT/ML X5UNITS SQ SCH (20:55)
[2017-09-26] MEDS: rOPINIRole 0.25 MG TABLET PO SCH (20:55)
[2017-09-26] MEDS: *HR* OxyCODONE/APAP 7.5/325 TABLET PO PRN (20:55)
--- NOTE | 2017-09-26 23:52 | Internal Med Progress Note ---
Date of Encounter: 09/27/17 Time of Encounter: 17:00 - Assessment and plan (1) Pneumonia Current Visit: Yes Status: Suspected Assessment and plan: The patient is doing progressively better. She does have mild cough but not wheezing. She feels weak. She gets short of breath easily. She is using less oxygen than before at admission. We will continue supportive Levaquin and supplemental oxygen. Qualifiers: Pneumonia type: due to unspecified organism Laterality: bilateral Lung location: lower lobe of lung Qualified Code(s): J18.1 - Lobar pneumonia, unspecified organism (2) Acute on chronic systolic (congestive) heart failure Current Visit: Yes Status: Acute Assessment and plan: See notes from cardiology. She gets IV Lasix, carvedilol and low-dose lisinopril. She is on mild fluid restriction. (3) ICD (implantable cardioverter-defibrillator) in place Current Visit: Yes Status: Chronic Assessment and plan: The patient does have implanted AICD. This is due to severe systolic heart failure. (4) Type 2 diabetes mellitus with hyperglycemia Current Visit: Yes Status: Acute Assessment and plan: She continues to have mildly increased to fingersticks for glucose. No adjustments to treatments of her diabetes mellitus is needed at this time. Qualifiers: Diabetes mellitus nursing home insulin use: with nursing home use Qualified Code( s): E11.65 - Type 2 diabetes mellitus with hyperglycemia; Z79.4 - senior care ( current) use of insulin - Time Spent With Patient Total time spent is greater than 50% in coordination of care (as documented) at patient's floor/unit and/or counseling patient: - Subjective Interval history: The patient feels better. Her fever subsided. She does have mild cough but not wheezing. She continues to have generalized aching in her muscles. Denies headache. She denies abdominal pain, nausea and vomiting. She has no diarrhea. She has normal urination. - Constitutional Vitals: Temp Pulse Resp BP Pulse Ox 97.7 F 74 16 148/95 95 09/26/17 22:35 09/26/17 22:35 09/26/17 22:53 09/26/17 22:35 09/26/17 22:53 General appearance: Present: A&O X 3, no acute distress, answers questions appropriately - Respiratory Respiratory exam: Present: CTAB. Absent: rales, rhonchi, wheezes - Cardiovascular Cardiovascular exam: Present: RRR. Absent: diastolic murmur, gallop, systolic murmur - GI/Abdominal GI/Abdominal exam: Present: normal bowel sounds, soft, no peritoneal signs. Absent: distended, tenderness - Skin Skin exam: Present: dry, intact Internal Medicine: Result - Labs CBC & Chem 7: 09/27/17 10:26 09/27/17 10:26 Labs: BMP 09/26/17 15:44 Sodium 136 Potassium 4.0 Chloride 102 Carbon Dioxide 25 BUN 32 H Creatinine 1.33 H Glucose 194 H Calcium 9.1 - ABG Interpretation ABG results: PT/INR, D-dimer PT 14.9 Seconds (9.4-12.1) H 09/21/17 22:51 D-Dimer 533 ng/mLFEU (0-500) H 09/21/17 22:51 - Impressions Impressions Chest X-Ray 09/23/17 08:00 IMPRESSION: Atelectasis or infiltrate in the right lung base. Stable cardiomegaly. Pacemaker. D/ / 09/23/2017 07:32:05 Jany Meng MD / nadine Interpreting Provider: Jany Meng MD - VTE Deep Vein Thrombosis/Pulmonary Embolism Present on Admission: No Consult Discharge Plan - Plan Referrals: Lonnie Sanchez, PAC [Primary Care Provider] - (Dr. Sanchez is no longer at this office, Patient does not want me to find her a doctor)
[2017-09-27] MEDS: Ipratropium/Albuterol Neb 3 ML IH SCH ×4 (04:00→21:36)
[2017-09-27] MEDS: *HR* Enoxaparin 40 MG/0.4 ML SYRINGE SQ SCH (05:28)
[2017-09-27] MEDS: Insulin LISPRO 300 UNITS/3 ML VIAL SQ SCH ×4 (07:54→20:56)
[2017-09-27] MEDS: *HR* OxyCODONE/APAP 7.5/325 TABLET PO PRN ×2 (07:55→22:33)
[2017-09-27] MEDS: levoFLOXacin 750 MG TABLET PO SCH (07:55)
--- NOTE | 2017-09-27 10:10 | Cardiology Progress Note ---
Date of Encounter: 09/27/17 Time of Encounter: 10:04 Assessment and Plan (1) Acute on chronic systolic (congestive) heart failure Current Visit: Yes Status: Acute Presented with acute decompensation HF. Reported NYHA class III symptoms. Known NICMP (2010) s/p ICD. Pt. reports gen. change at [facility] in 2017, has not had device checked in >1 year. Poor outpatient follow-up. Inpatient device check completed 09/22: good battery life, normal device function , 1 episode treated in VF zone 07/21/17 with successful ATP; 190 NSVT episodes. Last check 08/23/16. [facility] records August 2016: TTE 2017: EF less than 20% [facility] 2017: minimal non-obstructive CAD Gen change: single-lead ICD gen change. Required IV lasix gtt and dobutamine gtt during stay. Symptoms improved. Net negative 3L. Lasix stopped yesterday and small fluid bolus given due to Scr bump. SCr back to normal. Discussed with Dr. Sood, recommend starting torsemide 20 mg BID at discharge for maintenance. Check BMP in one week. On BB, ACEi Strict I&Os, daily weights, Na/fluid restricted diet. CHF education, low sodium diet, daily weights reviewed with patient. Patient going to rehab. Stress low sodium diet on orders. Out-pt f/u will be scheduled with Dr. Daisy sEtrella per patient request. Please call with questions. (2) NICM (nonischemic cardiomyopathy) Current Visit: Yes Status: Chronic Hx of NICMP, known EF 15-20% Last ischemic evaluation 2017 at [facility]--minimal non-obstructive CAD Discussion w patient/family: The assessment and plan as outlined above was discussed with the patient and/or family members who expressed understanding and agreement. All questions were answered. Thank you for involving us in the care of your patient. Please call with any questions. Subjective Principal diagnosis: NICMP Interval history: Ms. Song reports she is feeling better today. States "we are going to do things my way" when discussing f/u and CHF education. She appears to be hesitant to f/u. Encouragement given. Objective Vital Signs, Last 4 Hours Temp Pulse Resp BP Pulse Ox 09/27/17 06:41 97.8 F 81 18 104/86 91 General: Conversant, No Apparent Distress HEENT: Atraumatic, Normocephaly, Mucus Membranes Moist Neck: No JVD, Normal carotid pulses Cardiac: Reg Rate and Rhythm, Normal S1 and S2, No Murmur Lungs: Normal Breath Sounds, No Wheeze, Rales, Rhonchi Neuro: Alert and responsive, No focal deficits noted Abdomen: Soft, Non-Tender Skin: No rashes noted on visualized skin Musculoskeletal: No Chest Wall Tenderness Extremities: No Clubbing, No Cyanosis, No Edema, Normal Pulses Results 09/27/17 10:26 09/27/17 10:26 Lab Results 09/26/17 15:44 Sodium 136 Potassium 4.0 Chloride 102 Carbon Dioxide 25 BUN 32 H Creatinine 1.33 H Glucose 194 H Calcium 9.1 - Imaging and Cardiology Echo: report reviewed - VTE Deep Vein Thrombosis/Pulmonary Embolism Present on Admission: No Consult Discharge Plan - Plan Referrals: Lonnie Sanchez, PAC [Primary Care Provider] - (Dr. Sanchez is no longer at this office, Patient does not want me to find her a doctor)
[2017-09-27 11:10] LABS: Hematocrit 47.5 % (35.3-44.9); Hemoglobin 14.6 g/dL (11.5-15.4); Mean Corpuscular HGB Conc 30.7 g/dL (31.6-35.5); Mean Corpuscular Hemoglobin 24.4 pg (28.0-33.3); Mean Corpuscular Volume 79.3 fL (83.0-100.0); Mean Platelet Volume 10.1 fL (9.4-12.4); Platelet Count 223 K/mcL (140-400); Red Blood Count 5.99 M/mcL (3.82-4.97); Red Cell Distribution Width 15.2 % (11.5-14.5)
[2017-09-27 11:14] LABS: BUN/Creatinine Ratio 31 (6-26); Blood Urea Nitrogen 33 mg/dL (6-20); Calcium 9.4 mg/dL (8.6-10.3); Carbon Dioxide 26 mEq/L (23-29); Chloride 103 mEq/L (98-107); Glucose 206 mg/dL (70-105); Magnesium 2.1 mg/dL (1.6-2.6); Osmolality,Calculated 295 (280-300); Sodium 136 mEq/L (136-145); eGFR For African Americans > 60 (> 60); eGFR For Non-African Americans 54 (> 60)
[2017-09-27] MEDS: Torsemide 20 MG TABLET PO SCH (17:08)
[2017-09-27] MEDS: Insulin DETEMIR 100 UNIT/ML X5UNITS SQ SCH (20:56)
[2017-09-27] MEDS: rOPINIRole 0.25 MG TABLET PO SCH (20:56)
--- NOTE | 2017-09-27 21:14 | Internal Med Progress Note ---
Date of Encounter: 09/28/17 Time of Encounter: 19:00 - Assessment and plan (1) Pneumonia Status: Acute Assessment and plan: This seems to be viral pneumonia. Her respiratory panel at admission showed paraninfluenza 3. Blood cultures are negative on two occasions. Her chest x-ray shows partial clearing in both lungs. She is on IV levofloxacin. Her acute respiratory failure with hypoxia subsided. Qualifiers: Pneumonia type: due to unspecified organism Laterality: bilateral Lung location: lower lobe of lung Qualified Code(s): J18.1 - Lobar pneumonia, unspecified organism (2) Acute on chronic systolic (congestive) heart failure Status: Acute Assessment and plan: Stable/improving. See notes from cardiology. She is on carvedilol, lisinopril and torsemide. (3) ICD (implantable cardioverter-defibrillator) in place Status: Chronic (4) Type 2 diabetes mellitus with hyperglycemia Status: Acute Assessment and plan: Under fair control. Will continue Lantus and prn Humalog. 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 She will go there, whenever it is available. - Time Spent With Patient Total time spent is greater than 50% in coordination of care (as documented) at patient's floor/unit and/or counseling patient: 25 - 35 minutes - Subjective Interval history: The patient feels better. Her fever subsided. She does have mild cough but not wheezing. She continues to have generalized aching in her muscles. Denies headache. She denies abdominal pain, nausea and vomiting. She has no diarrhea. She has normal urination. The patient feels weak but progressively stronger. She does have mild cough but not wheezing. She's on room air oxygen.She needs some assistance, when walking. - Constitutional Vitals: Temp Pulse Resp BP Pulse Ox 98.1 F 75 18 151/99 96 09/27/17 19:36 09/27/17 19:36 09/27/17 19:36 09/27/17 19:36 09/27/17 19:36 General appearance: Present: A&O X 3, no acute distress, answers questions appropriately - Respiratory Respiratory exam: Present: CTAB. Absent: accessory muscle use, rales, rhonchi, wheezes - Cardiovascular Cardiovascular exam: Present: RRR, +S1, +S2. Absent: diastolic murmur, gallop, rubs, systolic murmur - GI/Abdominal GI/Abdominal exam: Present: normal bowel sounds, soft, no peritoneal signs. Absent: distended, tenderness - Skin Skin exam: Present: dry, intact Internal Medicine: Result - Labs CBC & Chem 7: 09/28/17 04:59 09/28/17 04:59 Labs: Short CBC 09/27/17 Range/Units 10:26 WBC 6.0 (4.3-11.1) K/mcL Hgb 14.6 (11.5-15.4) g/dL Hct 47.5 H (35.3-44.9) % Plt Count 223 (140-400) K/mcL BMP 09/27/17 10:26 Sodium 136 Potassium 4.0 Chloride 103 Carbon Dioxide 26 BUN 33 H Creatinine 1.05 Glucose 206 H Calcium 9.4 - ABG Interpretation ABG results: PT/INR, D-dimer PT 14.9 Seconds (9.4-12.1) H 09/21/17 22:51 D-Dimer 533 ng/mLFEU (0-500) H 09/21/17 22:51 - Impressions Impressions Chest X-Ray 09/27/17 09:06 IMPRESSION: Near complete resolution of right lower lobe infiltrate compared to 09/23/2017. D/ / 09/27/2017 13:13:17 Keagan Mcneill MD / bcarter Interpreting Provider: Keagan Mcneill MD - VTE Deep Vein Thrombosis/Pulmonary Embolism Present on Admission: No Consult Discharge Plan - Plan Instructions: Heart Failure (DC) Referrals: Lonnie Sanchez, PAC [Primary Care Provider] - (Dr. Sanchez is no longer at this office, Patient does not want me to find her a doctor)
[2017-09-28] MEDS: Ipratropium/Albuterol Neb 3 ML IH SCH ×4 (04:07→16:04)
[2017-09-28] MEDS: *HR* Enoxaparin 40 MG/0.4 ML SYRINGE SQ SCH (05:05)
[2017-09-28 05:29] LABS: Hematocrit 46.4 % (35.3-44.9); Hemoglobin 14.3 g/dL (11.5-15.4); Mean Corpuscular HGB Conc 30.8 g/dL (31.6-35.5); Mean Corpuscular Hemoglobin 24.3 pg (28.0-33.3); Mean Corpuscular Volume 78.9 fL (83.0-100.0); Platelet Count 236 K/mcL (140-400); Red Blood Count 5.88 M/mcL (3.82-4.97); Red Cell Distribution Width 14.6 % (11.5-14.5)
[2017-09-28 05:44] LABS: Calcium 9.3 mg/dL (8.6-10.3); Potassium 4.1 mEq/L (3.5-5.1)
[2017-09-28] MEDS: Torsemide 20 MG TABLET PO SCH ×2 (07:25→15:33)
[2017-09-28] MEDS: Insulin LISPRO 300 UNITS/3 ML VIAL SQ SCH ×3 (07:25→16:14)
[2017-09-28] MEDS: levoFLOXacin 750 MG TABLET PO SCH (07:25)
[2017-09-28] MEDS: *HR* OxyCODONE/APAP 7.5/325 TABLET PO PRN (10:42)
[2017-09-28 15:58] VITALS: BP 150/99
--- NOTE | 2017-09-28 17:20 | Discharge Summary ---
- NOTES TO OUTPATIENT PROVIDER Notes to Outpatient Provider: VIRAL PNA WITH DECOMPENSATED SYSTOLIC HEART FAILURE. FOR REHAB AT SNF. Orders not resulted at time of discharge: Pending orders 09/29/17 04:00 BMP [Basic Metabolic Panel] AM 0400 CBC no Diff [Complete Blood Count w/o Diff] [HEME] AM 0400 Date of Encounter: 09/28/17 Time of Encounter: 17:18 - Discharge Diagnosis (1) Pneumonia Priority: Primary Status: Acute Qualifiers: Pneumonia type: due to unspecified organism Laterality: bilateral Lung location: lower lobe of lung Qualified Code(s): J18.1 - Lobar pneumonia, unspecified organism (2) Acute on chronic systolic (congestive) heart failure Priority: Primary Status: Acute (3) ICD (implantable cardioverter-defibrillator) in place Priority: Secondary Status: Chronic (4) Type 2 diabetes mellitus with hyperglycemia Priority: Secondary Status: Chronic Qualifiers: Diabetes mellitus alf insulin use: with alf use Qualified Code( s): E11.65 - Type 2 diabetes mellitus with hyperglycemia; Z79.4 - custodial ( current) use of insulin (5) Debility Priority: Secondary Status: Acute Hospital course: Ms. Song is a 57 year old female. We admitted this patient with difficulty breathing. She was hypoxically. She requires supplemental oxygen. She was not using oxygen at home. She reported to us generalized muscle aching and fever in the last a few days preceding this admission. Chest x-ray showed bilateral opacities at least partially caused by pulmonary congestion. Respirometric panel showed paraninfluenza, type 3 virus. The patient has underlying, severe systolic heart failure with ejection fraction around 30%. Cardiology was consulted. The patient was on IV levofloxacin and IV diuretic. Her acute respiratory failure subsided by at the time of discharge. She seems to be debilitated. We are sending her to a assisted facility for short-term rehabilitation. Discharge discussed with: patient, nurse, case management - Time Spent with Patient Total time spent providing and/or coordinating discharge services: Greater than 30 minutes (40 minutes.) - Discharge Medications Home Medications: Lisinopril [Zestril] 20 mg PO DAILY #0 01/23/15 [History] Insulin Glargine [Lantus] 80 unit SQ HS 03/05/16 [History] Carvedilol [Coreg] 6.25 mg PO BID 09/22/17 [History] Diclofenac Sodium [Voltaren] 1 appl TP QID PRN 09/22/17 [History] Insulin ASPART [Novolog Flexpen] 0 units SQ TIDWM 09/22/17 [History] Oxycodone HCl/Acetaminophen [Endocet 10-325 mg Tablet] 1 tab PO QID 09/22/17 [ History] Ropinirole HCl [Requip] 0.5 mg PO HS 09/22/17 [History] Torsemide [Demadex] 20 mg PO BIDDIURETIC tablet 09/28/17 [Rx] levoFLOXacin [Levaquin] 750 mg PO DAILY 3 Days tablet 09/28/17 [Rx] Allergies/Adverse Reactions: 3 Allergy/AdvReac Type Severity Reaction Status Date / Time No Known Allergies Allergy Verified 09/22/17 12:31 Date of admission: 09/22/17 06:27 Primary care physician: Lonnie Sanchez Consults: 09/22/17 06:34 Consult to Cardiology [CONS] Routine Comment: Consulting Provider: Cardiology Maria Reason for Consult: Acute on Chronic CHF, Congenital Heart Abnormality Call Completed: No Consult to Inspector Elevators [CONS] Routine Reason for SW Consult: Find a new cardiology group for patient to follow up with as outpatient. 09/25/17 14:31 Consult to Occupational Therapy [CONS] Routine Comment: Evaluate, develop and implement POC Reason for Consult: weakness Does patient have active BEDREST order?: No Is patient medically & hemodynamically stable?: Yes Discharging clinician: Paul Conte Anticipated date of discharge: 09/28/17 - Constitutional Vitals: Temp Pulse Resp BP Pulse Ox 97.9 F 84 18 150/99 96 09/28/17 11:52 09/28/17 15:56 09/28/17 15:56 09/28/17 15:56 09/28/17 15:56 General appearance: Present: A&O X 3, no acute distress, answers questions appropriately - Respiratory Respiratory exam: Present: decreased breath sounds, CTAB. Absent: rales, rhonchi, wheezes - Cardiovascular Cardiovascular exam: Present: RRR, +S1, +S2. Absent: diastolic murmur, gallop, rubs, systolic murmur - GI/Abdominal GI/Abdominal exam: Present: normal bowel sounds, soft, no peritoneal signs. Absent: distended, tenderness - Patient Status Disposition: Transfer SNF Condition: Good Functional capacity at discharge: independent ambulation Overall status at discharge: patient is progressing back to baseline - Discharge Instructions Instructions: Heart Failure (DC) Follow Up With: Lonnie Sanchez, PAC [Primary Care Provider] - (Dr. Sanchez is no longer at this office, Patient does not want me to find her a doctor) - Diet and Activity Activity: as per physical therapy Diet: diabetic diet - VTE Deep Vein Thrombosis/Pulmonary Embolism Present on Admission: No
--- NOTE | 2017-09-28 17:39 | Physician Discharge Referral ---
ExtendedCare Referral Info Transfer To: SNF Provider in Charge: Lino LARIOS Provider in Charge after Transfer: Other (A SNF PHYSICIAN) Institutional Level of Care: Skilled - Diagnosis (1) Pneumonia Status: Suspected (2) Acute on chronic systolic (congestive) heart failure Status: Acute (3) ICD (implantable cardioverter-defibrillator) in place Status: Chronic (4) Type 2 diabetes mellitus with hyperglycemia Status: Acute - Transfer Medications Home Medications: Lisinopril [Zestril] 20 mg PO DAILY #0 01/23/15 [History] Insulin Glargine [Lantus] 80 unit SQ HS 07/10/15 [History] Carvedilol [Coreg] 6.25 mg PO BID 09/22/17 [History] Diclofenac Sodium [Voltaren] 1 appl TP QID PRN 09/22/17 [History] Insulin ASPART [Novolog Flexpen] 0 units SQ TIDWM 09/22/17 [History] Oxycodone HCl/Acetaminophen [Endocet 10-325 mg Tablet] 1 tab PO QID 09/22/17 [ History] Ropinirole HCl [Requip] 0.5 mg PO HS 09/22/17 [History] Torsemide [Demadex] 20 mg PO BIDDIURETIC tablet 09/28/17 [Rx] levoFLOXacin [Levaquin] 750 mg PO DAILY 3 Days tablet 09/28/17 [Rx] Allergies/Adverse Reactions: 3 Allergy/AdvReac Type Severity Reaction Status Date / Time No Known Allergies Allergy Verified 09/22/17 12:31 - Respiratory Orders Smoking Cessation: Smoking cessation has been advised. For more information, call the [place] Tobacco Quit Line at 7-624-NVGV-NOW. - Rehabiliation Orders Rehab Potential: Good CERTIFICATION: I certify that the transfer of the above named patient to an Extended Care Facility is necessary for the continuing treatment of the diagnosis listed. The above information is true and accurate reflection of patient's current condition. Confidential - Redisclosure prohibited without a patient's written consent.
== END 2017-09-28 19:10 | DRG 291 ==
LOC: EMEROO 22:13 → 3BNU 22:13 → SUATTDRO 09-22 06:27 → 2NENU 09-22 19:48 → 2NNU 09-22 23:26
PROVIDERS: ADMIT Internal Medicine; ATTEND Internal Medicine

== ENCOUNTER 2018-12-29 15:30 | Observation (INO) ==
[2018-12-29] MEDS ORDERED: 0.9 % Sodium Chloride 1,000 ML IVC ONE (15:39)
--- NOTE | 2018-12-29 15:39 | Emergency Department Note ---
Disposition Clinical Impression: Sepsis Qualifiers: Sepsis type: sepsis due to unspecified organism Sepsis acute organ dysfunction status: unspecified Qualified Code(s): A41.9 - Sepsis, unspecified organism Urinary tract infection Qualifiers: Urinary tract infection type: acute cystitis Hematuria presence: without hematuria Qualified Code(s): N30.00 - Acute cystitis without hematuria Disposition: Admitted As Inpatient Time of Disposition: 21:07 General Adult HPI - General Stated complaint: Weakness Time Seen by Provider: 12/29/18 15:37 Source: patient, EMS Mode of arrival: EMS Limitations: no limitations Nursing Notes Reviewed: Yes Vital Signs Reviewed: Yes - History of Present Illness HPI Narrative: 58-year-old female with multiple recurrent urinary tract infections presenting to the ED today for 2 day history of weakness and difficulty with ambulation. Patient brought in by EMS who states the patient was at [employer] today when she developed weakness and had to be assisted out of the facility. 911 was called patient transported to our facility. The patient complains of generalized malaise as well as weakness in her lower extremities she has had chills but no overt fevers, she has no urinary symptoms, no abdominal pain no nausea vomiting no other concerns or complaints at this time. Upon my initial evaluation, my general impression is that the patient is awake, alert, oriented, engaged to conversation and answering questions appropriately. There are no overt lateralizing signs, the patient is in no acute distress; their skin appears to be normal in color, they are not pale, not cyanotic, and not diaphoretic, they are sitting up in hospital bed interacting appropriately with environment. Onset (ago): day(s) Associated symptoms: Reports: malaise, weakness - Related Data Home Medications Medication Instructions Recorded Confirmed Lisinopril [Zestril] 20 mg PO DAILY #0 01/23/15 12/29/18 Carvedilol [Coreg] 6.25 mg PO BID 09/22/17 12/29/18 Insulin ASPART [Novolog Flexpen] 0 units SQ TIDWM 09/22/17 12/29/18 Allergies Allergy/AdvReac Type Severity Reaction Status Date / Time No Known Allergies Allergy Verified 12/29/18 19:31 Review of Systems: *See History of Present Illness for more detail Constitutional: Admits: Chills. Denies: fever Cardiovascular: Denies: chest pain Respiratory: Denies: dyspnea, cough, hemoptysis Gastrointestinal: Denies: abdominal pain, nausea, vomiting, diarrhea, constipation, hematemesis, melena, hematochezia Genitourinary: Denies: hematuria Musculoskeletal: Denies: back pain, neck pain Neurological: Admits: Weakness, lightheadedness/dizziness, difficulty with ambulation Denies: headache, numbness, paresthesias. Endocrine: Admits: fatigue All systems ED: reviewed and negative except as stated. 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 Anterior neck is supple without swelling. *Chest: Symmetric chest wall rise *Heart: Cardiac rhythm and rate are regular with S1 and S2 , no S3 or S4 alessandro reciated, no murmurs, gallops, rubs, or clicks. *Lungs: Lungs are clear to auscultation bilaterally, without accessory muscle use or prolonged expiratory phase. No wheezes, rhonchi or stridor appreciated. Abdomen: Abdomen is flat, soft to palpation, normal bowel sounds. No abdominal bruit auscultated. Non-distended, non-rigid, no organomegaly, no ascites appreciated. No pulsatile mass, no tenderness or guarding to palpation in all four quadrants, no rebound Extremities: Normal capillary refill without evidence of pedal edema, joint swelling or erythema. Pulses/motor intact in all 4 extremities. Psychiatric exam: Patient displays a normal affect and mood for the environment. No overt signs of hallucination. Integumentary: warm, dry, intact, normal color. No rash, cyanosis, diaphoresis, erythema, or pallor - General Limitations: no limitations General appearance: alert, in no apparent distress Course Course Narrative: ED sepsis workup - Reevaluation(s) Reevaluation #1: Patient was found have elevated lactic at 4.0 at this time. She has had 1 L of fluids already at 94 kg I will start her on an additional 2 L of saline for a total of 3 L input for lactic acidosis. Vital Signs Temperature 101.0 F H 12/29/18 15:32 Pulse Rate 94 12/29/18 15:32 Respiratory Rate 18 12/29/18 15:32 Blood Pressure 145/75 12/29/18 15:32 O2 Sat by Pulse Oximetry 97 12/29/18 15:32 Temperature 98.8 F 12/29/18 20:01 Pulse Rate 83 12/29/18 20:01 Respiratory Rate 20 12/29/18 20:01 Blood Pressure 153/84 12/29/18 20:01 O2 Sat by Pulse Oximetry 98 12/29/18 20:01 Oxygen Delivery Oxygen Delivery Room Air Medical Decision Making - MDM Narrative Medical decision making narrative: Patient found to be uroseptic with UTI and elevated white blood cell count. Lactic acid initially 4 gave 3 L IV fluids, gram of ceftriaxone. Patient noted to hospital medicine service for further evaluation and management of urosepsis. Plan of care The patient bedside she verbalizes understanding and agreement this course of action as he would Randa stable time of admission. - Lab Data Lab results reviewed: Yes I reviewed the patient's lab results. Result diagrams: 12/29/18 15:50 12/29/18 15:50 Lab Results 12/29/18 12/29/18 12/29/18 Range/Units 15:50 15:50 15:50 WBC 11.2 H (4.3-11.1) K/mcL RBC 5.05 H (3.82-4.97) M/mcL Hgb 13.8 (11.5-15.4) g/dL Hct 41.6 (35.3-44.9) % MCV 82.4 L (83.0-100.0) fL MCH 27.3 L (28.0-33.3) pg MCHC 33.2 (31.6-35.5) g/dL RDW 14.6 H (11.5-14.5) % Plt Count 238 (140-400) K/mcL MPV 10.3 (9.4-12.4) fL Immature Gran % 1.3 (0-4) % Seg Neutrophils % 75.8 % Lymphocytes % 13.4 % Monocytes % 8.5 % Eosinophils % 0.4 % Basophils % 0.6 % Neutrophils # 8.5 (1.6-8.9) K/mcL Lymphocytes # 1.5 (0.6-4.6) K/mcL Monocytes # 1.0 (0.0-1.3) K/mcL Eosinophils # 0.1 (0.0-0.6) K/mcL Basophils # 0.1 (0.0-0.2) K/mcL PT 13.4 H (9.4-12.1) Seconds INR 1.2 APTT 33.6 (26.0-36.0) Seconds Sample Site ABG pH (7.32-7.45) pH Units ABG pCO2 (35-45) mmHg ABG pO2 (85-104) mmHg ABG HCO3 (21-27) mEq/L ABG Total CO2 (20-26) mEq/L ABG O2 Saturation (95-98) % ABG Base Excess (-2 to 3) mEq/L Donovan Test Inspired O2 (1-15=lpm [id number]=%) Sodium 136 (136-145) mEq/L Potassium 3.7 (3.5-5.1) mEq/L Chloride 100 (98-107) mEq/L Carbon Dioxide 23 (23-29) mEq/L BUN 17 (6-20) mg/dL Creatinine 1.15 (0.60-1.20) mg/dL Est GFR ( Amer) 59 L (> 60) Est GFR (Non-Af Amer) 49 L (> 60) BUN/Creatinine Ratio 15 (6-26) Glucose 218 H (70-105) mg/dL Calculated Osmolality 290 (280-300) Lactic Acid (0.5-2.2) mmol/L Calcium 9.2 (8.6-10.3) mg/dL Phosphorus 2.9 (2.7-4.5) mg/dL Magnesium 1.9 (1.6-2.6) mg/dL Total Bilirubin 0.6 (0.3-1.0) mg/dL Direct Bilirubin 0.2 (0.0-0.2) mg/dL Indirect Bilirubin 0.4 (0.0-1.2) mg/dL AST 8 L (13-39) Units/L ALT 7 (7-52) Units/L Alkaline Phosphatase 72 (34-104) Units/L Troponin I 0.03 (< 0.04) ng/mL Serum Total Protein 7.2 (6.4-8.9) g/dL Albumin 3.6 (3.5-5.7) g/dL Globulin 3.6 H (2.4-3.5) g/dL Albumin/Globulin Ratio 1.0 L (1.1-2.2) Lipase 6 L (11-82) Units/L Urine Color (Yellow) Urine Clarity (Clear) Urine pH (5.0-8.0) pH Units Ur Specific [place] (1.010-1.025) Urine Protein (Neg-Trace) mg/dL Urine Glucose (UA) (Normal) mg/dL Urine Ketones (Negative) mg/dL Urine Blood (Negative) Urine Nitrite (Negative) Urine Bilirubin (Negative) Urine Urobilinogen (Normal) mg/dL Ur Leukocyte Esterase (Negative) Urine Microscopic RBC (0-3) per hpf Urine Microscopic WBC (0-3) per hpf Ur Squamous Epith Cells (None-Few) per lpf Urine Bacteria (None-Few) per hpf Hyaline Casts (None-Few) per lpf Ur Culture Indicated? (NO) 12/29/18 12/29/18 12/29/18 Range/Units 15:50 16:14 17:20 WBC (4.3-11.1) K/mcL RBC (3.82-4.97) M/mcL Hgb (11.5-15.4) g/dL Hct (35.3-44.9) % MCV (83.0-100.0) fL MCH (28.0-33.3) pg MCHC (31.6-35.5) g/dL RDW (11.5-14.5) % Plt Count (140-400) K/mcL MPV (9.4-12.4) fL Immature Gran % (0-4) % Seg Neutrophils % % Lymphocytes % % Monocytes % % Eosinophils % % Basophils % % Neutrophils # (1.6-8.9) K/mcL Lymphocytes # (0.6-4.6) K/mcL Monocytes # (0.0-1.3) K/mcL Eosinophils # (0.0-0.6) K/mcL Basophils # (0.0-0.2) K/mcL PT (9.4-12.1) Seconds INR APTT (26.0-36.0) Seconds Sample Site R Radial ABG pH 7.49 H (7.32-7.45) pH Units ABG pCO2 32 L (35-45) mmHg ABG pO2 71 L (85-104) mmHg ABG HCO3 24 (21-27) mEq/L ABG Total CO2 25 (20-26) mEq/L ABG O2 Saturation 95 (95-98) % ABG Base Excess 1 (-2 to 3) mEq/L Donovan Test Positive Inspired O2 21.0 (1-15=lpm [id number]=%) Sodium (136-145) mEq/L Potassium (3.5-5.1) mEq/L Chloride (98-107) mEq/L Carbon Dioxide (23-29) mEq/L BUN (6-20) mg/dL Creatinine (0.60-1.20) mg/dL Est GFR ( Amer) (> 60) Est GFR (Non-Af Amer) (> 60) BUN/Creatinine Ratio (6-26) Glucose (70-105) mg/dL Calculated Osmolality (280-300) Lactic Acid 4.0 H* (0.5-2.2) mmol/L Calcium (8.6-10.3) mg/dL Phosphorus (2.7-4.5) mg/dL Magnesium (1.6-2.6) mg/dL Total Bilirubin (0.3-1.0) mg/dL Direct Bilirubin (0.0-0.2) mg/dL Indirect Bilirubin (0.0-1.2) mg/dL AST (13-39) Units/L ALT (7-52) Units/L Alkaline Phosphatase (34-104) Units/L Troponin I (< 0.04) ng/mL Serum Total Protein (6.4-8.9) g/dL Albumin (3.5-5.7) g/dL Globulin (2.4-3.5) g/dL Albumin/Globulin Ratio (1.1-2.2) Lipase (11-82) Units/L Urine Color Yellow (Yellow) Urine Clarity Cloudy A (Clear) Urine pH 5.0 (5.0-8.0) pH Units Ur Specific [place] 1.018 (1.010-1.025) Urine Protein 100 H (Neg-Trace) mg/dL Urine Glucose (UA) 250 H (Normal) mg/dL Urine Ketones Negative (Negative) mg/dL Urine Blood Trace H (Negative) Urine Nitrite Positive A (Negative) Urine Bilirubin Negative (Negative) Urine Urobilinogen Normal (Normal) mg/dL Ur Leukocyte Esterase Small H (Negative) Urine Microscopic RBC 0-3 (0-3) per hpf Urine Microscopic WBC 3-5 H (0-3) per hpf Ur Squamous Epith Cells Many H (None-Few) per lpf Urine Bacteria Many H (None-Few) per hpf Hyaline Casts Few (None-Few) per lpf Ur Culture Indicated? YES A (NO) 12/29/18 Range/Units 19:38 WBC (4.3-11.1) K/mcL RBC (3.82-4.97) M/mcL Hgb (11.5-15.4) g/dL Hct (35.3-44.9) % MCV (83.0-100.0) fL MCH (28.0-33.3) pg MCHC (31.6-35.5) g/dL RDW (11.5-14.5) % Plt Count (140-400) K/mcL MPV (9.4-12.4) fL Immature Gran % (0-4) % Seg Neutrophils % % Lymphocytes % % Monocytes % % Eosinophils % % Basophils % % Neutrophils # (1.6-8.9) K/mcL Lymphocytes # (0.6-4.6) K/mcL Monocytes # (0.0-1.3) K/mcL Eosinophils # (0.0-0.6) K/mcL Basophils # (0.0-0.2) K/mcL PT (9.4-12.1) Seconds INR APTT (26.0-36.0) Seconds Sample Site ABG pH (7.32-7.45) pH Units ABG pCO2 (35-45) mmHg ABG pO2 (85-104) mmHg ABG HCO3 (21-27) mEq/L ABG Total CO2 (20-26) mEq/L ABG O2 Saturation (95-98) % ABG Base Excess (-2 to 3) mEq/L Donovan Test Inspired O2 (1-15=lpm pm70-478=%) Sodium (136-145) mEq/L Potassium (3.5-5.1) mEq/L Chloride (98-107) mEq/L Carbon Dioxide (23-29) mEq/L BUN (6-20) mg/dL Creatinine (0.60-1.20) mg/dL Est GFR ( Amer) (> 60) Est GFR (Non-Af Amer) (> 60) BUN/Creatinine Ratio (6-26) Glucose (70-105) mg/dL Calculated Osmolality (280-300) Lactic Acid 1.2 (0.5-2.2) mmol/L Calcium (8.6-10.3) mg/dL Phosphorus (2.7-4.5) mg/dL Magnesium (1.6-2.6) mg/dL Total Bilirubin (0.3-1.0) mg/dL Direct Bilirubin (0.0-0.2) mg/dL Indirect Bilirubin (0.0-1.2) mg/dL AST (13-39) Units/L ALT (7-52) Units/L Alkaline Phosphatase (34-104) Units/L Troponin I (< 0.04) ng/mL Serum Total Protein (6.4-8.9) g/dL Albumin (3.5-5.7) g/dL Globulin (2.4-3.5) g/dL Albumin/Globulin Ratio (1.1-2.2) Lipase (11-82) Units/L Urine Color (Yellow) Urine Clarity (Clear) Urine pH (5.0-8.0) pH Units Ur Specific [place] (1.010-1.025) Urine Protein (Neg-Trace) mg/dL Urine Glucose (UA) (Normal) mg/dL Urine Ketones (Negative) mg/dL Urine Blood (Negative) Urine Nitrite (Negative) Urine Bilirubin (Negative) Urine Urobilinogen (Normal) mg/dL Ur Leukocyte Esterase (Negative) Urine Microscopic RBC (0-3) per hpf Urine Microscopic WBC (0-3) per hpf Ur Squamous Epith Cells (None-Few) per lpf Urine Bacteria (None-Few) per hpf Hyaline Casts (None-Few) per lpf Ur Culture Indicated? (NO) - Radiology Data Radiology results reviewed: Yes I reviewed the patient's radiology results. Chest X-Ray 12/29/18 15:39 IMPRESSION: No acute process. Stable cardiomegaly D/ / Kartik Baker MD / Kartik Baker MD Interpreting Provider: Kartik Baker MD - EKG Data EKG #1 EKG attestation: Yes I reviewed and interpreted this EKG. EKG results narrative: The patients EKG shows a sinus rhythm with incomplete left bundle branch block at a computer analyzed rate of 94 beats per minute, HI interval of 160 milliseconds, a QRS duration of 113 milliseconds, a QT/QTc interval of 384 / 481 milliseconds respectively. There are no significant ST segment elevations, depressions, pathologic Q waves, abnormal T-wave inversions, nor any other signs of acute ischemic change. This EKG that was performed today is generally consistent in morphology with prior EKG that was performed on 09/21/2017. Critical Care Time Critical Care Time: Yes Total Critical Care Time: 35 Attestation: Rectal care time 35 minutes managing patient's urosepsis. Attestation Statement - Attestation Attestation: Patient was seen with resident physician. I reviewed the history, physical, assessment and plan, and agree with the findings. I also personally evaluated this patient and had [id number] time with this patient. 58-year-old female presents emergency Department with generalized weakness. P atient states she has felt bad for the last couple days. She noticed it was a problem because she has been having increasing difficulty walking and just having enough strength to do that. She was at [employer] and required assistance to get out and ultimately prompted her visit to the ER. She denies specific complaints of nausea vomiting diarrhea chest pain or shortness of breath. She does say that she has had some chills earlier today and she is not sure she has had a fever or not. Review systems as above remainder negative. Physical exam vital signs are stable she is febrile. ENT is unremarkable. Heart regular rhythm and rate lungs are clear. Abdomen is soft and nontender. Extremities unremarkable. Neurologically the patient has no focal neurologic findings. She does seem to have some generalized weakness when moving around but can still move all extremities and cranial nerves are intact. Skin no rashes. Psych normal. ED course. We will do full septic workup on the patient. She did have a fever and this certainly could be an infection kind of picture. We will also treat with IV hydration. And check lab testing. Workup essentially revealed urosepsis. Patient had a lactic acidosis and positive urinary tract infection. We will start her on IV antibiotics and contact the hospitalist service to arrange for IV antibiotics and hospital admission. Hemodynamically she remained stable while in the emergency department. I agree with resident physician assessment and plan. Critical care time 35 minutes. ED procedures.I reviewed the patient's EKG as well as the resident physician interpretation and I agree with the findings.
[2018-12-29 16:08] LABS: White Blood Count 11.2 K/mcL (4.3-11.1)
[2018-12-29 16:09] LABS: Basophils # 0.1 K/mcL (0.0-0.2); Basophils % 0.6 %; Eosinophils # 0.1 K/mcL (0.0-0.6); Eosinophils % 0.4 %; Hematocrit 41.6 % (35.3-44.9); Hemoglobin 13.8 g/dL (11.5-15.4); Immature Granulocytes % 1.3 % (0-4); Lymphocytes # 1.5 K/mcL (0.6-4.6); Lymphocytes % 13.4 %; Mean Corpuscular HGB Conc 33.2 g/dL (31.6-35.5); Mean Corpuscular Hemoglobin 27.3 pg (28.0-33.3); Mean Corpuscular Volume 82.4 fL (83.0-100.0); Mean Platelet Volume 10.3 fL (9.4-12.4); Monocytes % 8.5 %; Neutrophils # 8.5 K/mcL (1.6-8.9); Platelet Count 238 K/mcL (140-400); Red Blood Count 5.05 M/mcL (3.82-4.97); Red Cell Distribution Width 14.6 % (11.5-14.5); Segmented Neutrophils % 75.8 %
[2018-12-29 16:17] LABS: ABG Base Excess 1 mEq/L (-2 to 3); ABG HCO3 24 mEq/L (21-27); ABG Oxygen Saturation 95 % (95-98); ABG PCO2 32 mmHg (35-45); ABG PH 7.49 pH Units (7.32-7.45); ABG PO2 71 mmHg (85-104); ABG TCO2 25 mEq/L (20-26)
[2018-12-29 16:19] LABS: INR 1.2; Prothrombin Time 13.4 Seconds (9.4-12.1)
[2018-12-29 16:22] LABS: Activated Partial Thrombo Time 33.6 Seconds (26.0-36.0)
[2018-12-29 16:32] LABS: Albumin 3.6 g/dL (3.5-5.7); Bilirubin,Direct 0.2 mg/dL (0.0-0.2); Bilirubin,Indirect 0.4 mg/dL (0.0-1.2); Bilirubin,Total 0.6 mg/dL (0.3-1.0); Calcium 9.2 mg/dL (8.6-10.3); Globulin 3.6 g/dL (2.4-3.5); Magnesium 1.9 mg/dL (1.6-2.6); Phosphorous 2.9 mg/dL (2.7-4.5); Potassium 3.7 mEq/L (3.5-5.1); Total Protein 7.2 g/dL (6.4-8.9); Troponin I 0.03 ng/mL (< 0.04)
[2018-12-29] MEDS: 0.9 % Sodium Chloride 1,000 ML IVC SCH ×2 (17:00→19:30)
[2018-12-29 17:31] LABS: Bilirubin,Urine Negative (Negative); Blood,Urine Trace (Negative); Clarity,Urine Cloudy (Clear); Color,Urine Yellow (Yellow); Glucose,Urine (UA) 250 mg/dL (Normal); Ketones,Urine Negative (Negative); Leukocyte Esterase,Urine Small (Negative); Nitrite,Urine Positive (Negative); Protein,Urine 100 mg/dL (Neg-Trace); Specific Gravity,Urine 1.018 (1.010-1.025); Urobilinogen,Urine Normal (Normal)
[2018-12-29 17:33] LABS: Bacteria,Urine Many per hpf (None-Few); Hyaline Casts,Urine Few per lpf (None-Few); RBC,Urine 0-3 per hpf (0-3); Squamous Epithelial Cell,Urine Many per lpf (None-Few)
[2018-12-29] MEDS ORDERED: cefTRIAXone 1,000 MG in Water for inj. (sterile) 10 ML IVP ONE (18:36)
[2018-12-30] MEDS ORDERED: Naloxone 0.4 MG/ML INJ IVP PRN (01:15)
[2018-12-30] MEDS ORDERED: D5% in Water 1,000 ML IVC PRN (01:17)
[2018-12-30] MEDS ORDERED: *HR* Dextrose 50 % in Water (Syg) 50 ML SYRINGE IVP PRN (01:17)
[2018-12-30] MEDS ORDERED: Dextrose Gel 15 GM/37.5 ML TUBE PO PRN ×2 (01:17)
--- NOTE | 2018-12-30 01:21 | Internal Med History&Physical ---
Date of Encounter: 12/30/18 Time of Encounter: 00:15 Internal Medicine - H&P: HPI Chief complaint: Urinary tract infection Admitted From: Emergency Dept Plans for Post Hospital Care: Home History of present illness: Ms. Song is a 58 year old female Patient presented to the emergency department with a 2 day history of weakness and a 1 week history of increased urine frequency. She says that she was at religious today when she had difficulty getting around. She went to [facility] for a post religious lunch, and ended up vomiting up her meal which she thought was unusual. She went home after that but developed a headache. She became concerned and called an ambulance to take her to the hospital. She has never had symptoms like this before. emergency department vital signs: Temperature 101.0, pulse 94, respiratory 18, blood pressure 145/75 O2 saturation 97% on room air CBC notable for white count of 11.2. BMP: Elevated glucose of 218 otherwise normal. Lactic acid 4.0 INR 1.2 Urinalysis: Positive nitrite, 100 protein, small leukocyte esterase many urine bacteria. EKG: sinus rhythm, rate 94, QTC 481 ms. No ischemic changes. In the emergency department patient received a total of 2 L of IV fluids. Blood and urine cultures were obtained. Patient was started on ceftriaxone she was admitted to the hospital for further management. Upon my assessment, patient is resting comfortably in the hospital bed in no acute distress. She denies chest pain, nausea, vomiting, diarrhea and constipation she has some lower abdominal pain with palpation as well as right hip pain. Her weakness has resolved. And she is able to ambulate without assistance to the bathroom. She denies significant family medical history. She is a DNR/DNI. Past Med Surg Social Fam HX - Past Medical History Medical history: atrial fibrillation, cardiomyopathy, CHF, diabetes, hyperlipidemia, hypertension, other Additional medical history: chronic back pain, restless leg, fluid removed from lung Psychiatric history: anxiety, depression - Past Surgical History Surgical History: cholecystectomy, hysterectomy, orthopedic, other, AICD Additional surgical history: left foot surgery, right foot surgery, toe amputation, abd surgery for twisted bowl () - Social History Smoking Status: Never smoker Smokeless Tobacco Status: No Alcohol use: none Drug use: none - Family History Mother Adopted: No Family Member Ethnicity: Non- Living Status: Hx Family Cardiac Disorders: Yes (chf) Hx Family Respiratory Disorders: Yes (copd) Hx Family Cancer: No Hx Family GI Disorders: No Hx Family Endocrine Disorder: Yes (dm) Hx Family Neuromuscular Disorders: No Hx Family Neurologic Disorders: No Hx Family HEENT Disorders: No Hx Family Autoimmune Disorders: No Sister Living Status: Hx Family Cardiac Disorders: Yes (CHF) Hx Family Neurologic Disorders: Yes (Migraine headache) Internal Medicine - H&P: Meds Lisinopril [Zestril] 20 mg PO DAILY #0 01/23/15 [History] Carvedilol [Coreg] 6.25 mg PO BID 09/22/17 [History] Insulin ASPART [Novolog Flexpen] 0 units SQ TIDWM 09/22/17 [History] Allergy/AdvReac Type Severity Reaction Status Date / Time No Known Allergies Allergy Verified 12/29/18 19:31 All Systems PM: A 10-system review of systems was performed and is negative for pertinent findings except as documented above in the HPI. - Constitutional Vitals: Temp Pulse Resp BP Pulse Ox 98.6 F 82 18 148/83 95 12/29/18 22:30 12/29/18 22:30 12/29/18 22:30 12/29/18 22:30 12/29/18 22:30 General appearance: Present: cooperative, A&O X 3, pleasant, no acute distress, answers questions appropriately Exam: - - Head Head exam: Present: normal inspection - Eye Eye exam: Present: EOMI, normal appearance - Respiratory Respiratory exam: Present: CTAB. Absent: rales, respiratory distress, rhonchi, wheezes - Cardiovascular Cardiovascular exam: Present: RRR. Absent: diastolic murmur, systolic murmur - GI/Abdominal GI/Abdominal exam: Present: normal bowel sounds, soft, tenderness Additional comments: Mild suprapubic tenderness with palpation - Extremities Exam Extremities exam: Present: warm, radial pulses palpable and symmetrical. Absent: calf tenderness, pedal edema, tenderness Additional comments: Left foot missing second toe - Neurological Exam Neurological exam: Present: no focal deficits, strengths equal and symetr throughout. Absent: motor sensory deficit, facial droop, speech deficit - Skin Skin exam: Present: dry, normal color, warm Internal Med - H&P Results - Labs CBC & Chem 7: 12/29/18 15:50 12/29/18 15:50 Labs: Short CBC 12/29/18 Range/Units 15:50 WBC 11.2 H (4.3-11.1) K/mcL Hgb 13.8 (11.5-15.4) g/dL Hct 41.6 (35.3-44.9) % Plt Count 238 (140-400) K/mcL Neutrophils # 8.5 (1.6-8.9) K/mcL BMP 12/29/18 15:50 Sodium 136 Potassium 3.7 Chloride 100 Carbon Dioxide 23 BUN 17 Creatinine 1.15 Glucose 218 H Calcium 9.2 Cardiac Enzymes 12/29/18 Range/Units 15:50 Troponin I 0.03 (< 0.04) ng/mL Liver Function 12/29/18 Range/Units 15:50 Total Bilirubin 0.6 (0.3-1.0) mg/dL Direct Bilirubin 0.2 (0.0-0.2) mg/dL AST 8 L (13-39) Units/L ALT 7 (7-52) Units/L Alkaline Phosphatase 72 (34-104) Units/L Albumin 3.6 (3.5-5.7) g/dL Urine 12/29/18 Range/Units 17:20 Urine Color Yellow (Yellow) Urine Clarity Cloudy A (Clear) Urine pH 5.0 (5.0-8.0) pH Units Ur Specific [place] 1.018 (1.010-1.025) Urine Protein 100 H (Neg-Trace) mg/dL Urine Glucose (UA) 250 H (Normal) mg/dL - ABG Interpretation ABG results: 12/29/18 16:14 ABG pH 7.49 H ABG pCO2 32 L ABG pO2 71 L ABG HCO3 24 ABG Total CO2 25 ABG O2 Saturation 95 ABG Base Excess 1 - Impressions ITS Impressions Chest X-Ray 12/29/18 15:39 IMPRESSION: No acute process. Stable cardiomegaly D/ / Kartik Baker MD / Kartik Baker MD Interpreting Provider: Kartik Baker MD - Assessment and Plan (1) Urinary tract infection Current Visit: Yes Status: Acute Assessment and plan: Urinalysis indicates infection. Patient has never had a urinary tract infection before. She was started on ceftriaxone in the emergency department. Probably also the source of her suprapubic abdominal pain and weakness. Patient's symptoms improved with IV fluids. She denied pain with urination but did have increased frequency. Follow-up urine culture Continue IV antibiotics Continue to monitor for worsening signs of infection. IV fluid hydration Qualifiers: Urinary tract infection type: acute cystitis Hematuria presence: without hematuria Qualified Code(s): N30.00 - Acute cystitis without hematuria (2) Sepsis Current Visit: Yes Status: Acute Assessment and plan: Patient met sepsis criteria with elevated lactate of 4.0, temperature 101.0 and elevated pulse of 94. She has evidence of urinary tract infection which is likely the source. Patient received 2 L of IV fluids, and her repeat lactate was 1.2. She no longer meet sepsis criteria. Continue to monitor Treating urinary tract infection as above. Qualifiers: Sepsis type: sepsis due to unspecified organism Sepsis acute organ dysfunction status: unspecified Qualified Code(s): A41.9 - Sepsis, unspecified organism (3) Type 2 diabetes mellitus with hyperglycemia Current Visit: No Status: Chronic Assessment and plan: Patient is an insulin dependent diabetic Monitor sugars ACHS Diabetic diet Low dose insulin sliding scale as needed Hold home meds. Qualifiers: Qualified Code(s): E11.65 - Type 2 diabetes mellitus with hyperglycemia; Z79.4 - assisted (current) use of insulin (4) DVT prophylaxis Current Visit: No Status: Acute Assessment and plan: Subcutaneous heparin - Time Spent With Patient Total time spent is greater than 50% in coordination of care (as documented) at patient's floor/unit and/or counseling patient: Greater than 35 minutes
[2018-12-30] MEDS: 0.9 % Sodium Chloride 1,000 ML IVC SCH ×2 (02:43→09:23)
[2018-12-30 03:22] LABS: Mean Corpuscular HGB Conc 32.2 g/dL (31.6-35.5); Mean Corpuscular Hemoglobin 26.7 pg (28.0-33.3); Mean Corpuscular Volume 83.1 fL (83.0-100.0); Mean Platelet Volume 10.1 fL (9.4-12.4); Platelet Count 191 K/mcL (140-400); Red Blood Count 4.45 M/mcL (3.82-4.97); Red Cell Distribution Width 14.6 % (11.5-14.5); White Blood Count 7.6 K/mcL (4.3-11.1)
[2018-12-30 03:35] LABS: Hemoglobin 11.9 g/dL (11.5-15.4)
[2018-12-30 03:40] LABS: BUN/Creatinine Ratio 19 (6-26); Blood Urea Nitrogen 17 mg/dL (6-20); Calcium 8.4 mg/dL (8.6-10.3); Carbon Dioxide 24 mEq/L (23-29); Chloride 105 mEq/L (98-107); Glucose 233 mg/dL (70-105); Osmolality,Calculated 295 (280-300); Potassium 3.7 mEq/L (3.5-5.1); Sodium 138 mEq/L (136-145); eGFR For African Americans > 60 (> 60); eGFR For Non-African Americans > 60 (> 60)
[2018-12-30 03:41] LABS: Troponin I < 0.03 ng/mL (< 0.04)
[2018-12-30] MEDS: *HR* Heparin 5,000 UNIT/ML VIAL SQ SCH ×2 (05:30→18:03)
--- NOTE | 2018-12-30 08:23 | Event Note ---
Date of Encounter: 12/30/18 Time of Encounter: 08:22 Reason seen and examined this morning at bedside. Admitted overnight for increased urinary frequency and weakness. Found to have possible UTI and sepsis related to UTI. Continue empiric ceftriaxone. Follow blood and urine cultures. Decrease fluids to maintenance given lactated normalized. We will resume antihypertensives as blood pressure tolerates.
[2018-12-30] MEDS: cefTRIAXone 1,000 MG in Water for inj. (sterile) 10 ML IVP SCH (09:21)
[2018-12-30] MEDS: Insulin LISPRO 300 UNITS/3 ML VIAL SQ SCH ×4 (09:35→22:09)
[2018-12-30] MEDS ORDERED: 0.9 % Sodium Chloride 1,000 ML IVC SCH (10:16)
--- NOTE | 2018-12-31 00:20 | Electrocardiograph Report ---
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
[2018-12-31 01:36] LABS: Basophils # 0.1 K/mcL (0.0-0.2); Basophils % 0.7 %; Eosinophils # 0.2 K/mcL (0.0-0.6); Eosinophils % 2.6 %; Hematocrit 37.2 % (35.3-44.9); Hemoglobin 12.1 g/dL (11.5-15.4); Immature Granulocytes % 1.5 % (0-4); Lymphocytes # 2.5 K/mcL (0.6-4.6); Lymphocytes % 35.6 %; Mean Corpuscular HGB Conc 32.5 g/dL (31.6-35.5); Mean Corpuscular Hemoglobin 26.7 pg (28.0-33.3); Mean Corpuscular Volume 81.9 fL (83.0-100.0); Mean Platelet Volume 9.7 fL (9.4-12.4); Monocytes # 0.6 K/mcL (0.0-1.3); Monocytes % 8.1 %; Neutrophils # 3.5 K/mcL (1.6-8.9); Platelet Count 218 K/mcL (140-400); Red Blood Count 4.54 M/mcL (3.82-4.97); Red Cell Distribution Width 14.8 % (11.5-14.5); Segmented Neutrophils % 51.5 %; White Blood Count 6.9 K/mcL (4.3-11.1)
[2018-12-31 01:56] LABS: BUN/Creatinine Ratio 22 (6-26); Blood Urea Nitrogen 17 mg/dL (6-20); Carbon Dioxide 25 mEq/L (23-29); Chloride 105 mEq/L (98-107); Glucose 98 mg/dL (70-105); Osmolality,Calculated 292 (280-300); Potassium 3.6 mEq/L (3.5-5.1); Sodium 140 mEq/L (136-145); eGFR For African Americans > 60 (> 60); eGFR For Non-African Americans > 60 (> 60)
[2018-12-31] MEDS: *HR* Heparin 5,000 UNIT/ML VIAL SQ SCH ×2 (06:03→16:51)
[2018-12-31] MEDS: cefTRIAXone 1,000 MG in Water for inj. (sterile) 10 ML IVP SCH (09:51)
[2018-12-31] MEDS: Insulin LISPRO 300 UNITS/3 ML VIAL SQ SCH ×4 (09:52→20:34)
[2018-12-31] MEDS: Lisinopril 20 MG TABLET PO SCH (09:52)
[2018-12-31] MEDS ORDERED: 0.9 % Sodium Chloride 500 ML IVC SCH (11:00)
--- NOTE | 2018-12-31 11:11 | Internal Med Progress Note ---
Hospitalist Progress Note - Encounter Date of Encounter: 12/31/18 Time of Encounter: 10:57 - Subjective Interval History: Patient seen and examined this morning at bedside. No acute overnight events. Patient feeling weak and did not get good sleep as she was discharged to get EKG because of her sort run of VT. EKG without acute changes. - Exam Vitals: Temp Pulse Resp BP Pulse Ox 97.9 F 74 16 155/95 96 12/31/18 07:54 12/31/18 07:54 12/31/18 04:59 12/31/18 07:54 12/31/18 07:54 Exam: General: In no acute distress. Respiratory exam: CTAB. no accessory muscle use, rales, rhonchi, wheezes Cardiovascular exam: RRR, +S1, +S2. no murmur, gallop, rubs. GI/Abdominal exam: Non-tender, Non-distended, normal bowel sounds, soft, no peritoneal signs. Extremities exam: no pedal edema, pulses palpable in b/l lower extremities. no calf tenderness. Neurological exam: CN II-XII intact, AO X3, no focal deficits. Skin exam: No skin rash - Assessment and Plan (1) Urinary tract infection Current Visit: Yes Status: Acute (2) DVT prophylaxis Current Visit: No Status: Acute (3) Type 2 diabetes mellitus with hyperglycemia Current Visit: No Status: Chronic (4) Sepsis Current Visit: Yes Status: Acute - Summary of Assessment and Plan Summary of Assessment and Plan: Assessment Acute Sepsis UTI Lactic acidosis-resolved Respiratory acidosis. Weakness hip arthritis NSVT Chronic atrial fibrillation cardiomyopathy Nonischemic cardiomyopathy diabetes HLD HTN Plan - c/w ceftriaxone likely changed to cefdinir to finish 7 day course on discharge if blood cultures remain negative. Was planning for discharge however, patient feeling significantly weak from her hip arthritis. She came off previous opiates as she wants to minimize her medications. We will obtain PT co nsultation for discharge planning - Short run of NSVT about 10 beats overnight. EKG this morning without any changes. Troponin negative previously. Patient without chest pain - Given negative balance we will give 500 mL of normal saline. patient not taking any medication for diabetes. We will obtain A1c as it might be contributing to dehydration and her feeling weak. - Patient has severe nonischemic cardiomyopathy with EF of 15-20% with AICD in place. She affirms she has a defibrillator. She affirms her DNR CCA DNR status. Reason seen and examined this morning at bedside. Admitted overnight for increased urinary frequency and weakness. Found to have possible UTI and sepsis related to UTI. Continue empiric ceftriaxone. Follow blood and urine cultures. Decrease fluids to maintenance given lactated normalized. We will resume antihypertensives as blood pressure tolerates. - Time Spent with Patient Total time spent is greater than 50% in coordination of care (as documented) at patient's floor/unit and/or counseling patient: Internal Medicine: Result - Labs CBC & Chem 7: 12/31/18 01:20 12/31/18 01:20 Labs: Short CBC 12/31/18 Range/Units 01:20 WBC 6.9 (4.3-11.1) K/mcL Hgb 12.1 (11.5-15.4) g/dL Hct 37.2 (35.3-44.9) % Plt Count 218 (140-400) K/mcL Neutrophils # 3.5 (1.6-8.9) K/mcL BMP 12/31/18 01:20 Sodium 140 Potassium 3.6 Chloride 105 Carbon Dioxide 25 BUN 17 Creatinine 0.76 Glucose 98 Calcium 9.0 - ABG Interpretation ABG results: ABG ABG pH 7.49 pH Units (7.32-7.45) H 12/29/18 16:14 ABG pCO2 32 mmHg (35-45) L 12/29/18 16:14 ABG pO2 71 mmHg (85-104) L 12/29/18 16:14 ABG O2 Saturation 95 % (95-98) 12/29/18 16:14 PT/INR, D-dimer PT 13.4 Seconds (9.4-12.1) H 12/29/18 15:50 Consult Discharge Plan - Plan (1) Urinary tract infection Qualifiers: Urinary tract infection type: acute cystitis Hematuria presence: without hematuria Qualified Code(s): N30.00 - Acute cystitis without hematuria (3) Type 2 diabetes mellitus with hyperglycemia Qualifiers: Qualified Code(s): E11.65 - Type 2 diabetes mellitus with hyperglycemia; Z79.4 - manager terminal (current) use of insulin (4) Sepsis Qualifiers: Sepsis type: sepsis due to unspecified organism Sepsis acute organ dysfunction status: unspecified Qualified Code(s): A41.9 - Sepsis, unspecified organism
--- NOTE | 2018-12-31 16:10 | Electrocardiograph Report ---
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
[2018-12-31] MEDS ORDERED: Ibuprofen 400 MG TABLET PO ONE (16:57)
[2019-01-01] MEDS: Insulin LISPRO 300 UNITS/3 ML VIAL SQ SCH ×4 (08:50→20:53)
[2019-01-01] MEDS: cefTRIAXone 1,000 MG in Water for inj. (sterile) 10 ML IVP SCH (08:51)
[2019-01-01] MEDS: Lisinopril 20 MG TABLET PO SCH (08:52)
[2019-01-01] MEDS: Spironolactone 25 MG TABLET PO SCH (08:52)
[2019-01-01] MEDS: *HR* Heparin 5,000 UNIT/ML VIAL SQ SCH ×2 (08:52→17:30)
[2019-01-01 09:18] LABS: Troponin I < 0.03 ng/mL (< 0.04)
[2019-01-01 11:04] LABS: Estimated Average Glucose 220 mg/dl
--- NOTE | 2019-01-01 12:21 | Internal Med Progress Note ---
Hospitalist Progress Note - Encounter Date of Encounter: 01/01/19 Time of Encounter: 12:16 - Subjective Interval History: Patient was seen and examined at bedside today. Patient denied any dysuria. Patient denied any urinary frequency. Patient still complaining of fatigue and weakness. Patient was evaluated by physical therapy. [facility]. - Exam Vitals: Temp Pulse Resp BP Pulse Ox 98.5 F 66 18 147/91 98 01/01/19 11:23 01/01/19 11:23 01/01/19 11:23 01/01/19 11:23 01/01/19 11:23 Exam: General: In no acute distress. Respiratory exam: CTAB. no accessory muscle use, rales, rhonchi, wheezes Cardiovascular exam: RRR, +S1, +S2. no murmur, gallop, rubs. GI/Abdominal exam: Non-tender, Non-distended, normal bowel sounds, soft, no peritoneal signs. Extremities exam: no pedal edema, pulses palpable in b/l lower extremities. no calf tenderness. Neurological exam: CN II-XII intact, AO X3, no focal deficits. Skin exam: No skin rash - Assessment and Plan (1) Urinary tract infection Current Visit: Yes Status: Acute Assessment and Plan: Continue IV antibiotic. Patient is currently on IV Rocephin. Urine cultures showed Escherichia coli which was sensitive to all antibiotics. Patient was complaining of weakness. Patient was evaluated by physical therapy during this hospitalization. [facility]. Anticipate discharge tomorrow based on insurance approval of discharge to [facility] facility. (2) Sepsis Current Visit: Yes Status: Acute Assessment and Plan: Sepsis has resolved. Continue management as above (3) Type 2 diabetes mellitus with hyperglycemia Current Visit: No Status: Chronic Assessment and Plan: Patient is an insulin dependent diabetic Monitor sugars ACHS Diabetic diet Low dose insulin sliding scale as needed. (4) DVT prophylaxis Current Visit: No Status: Acute Assessment and Plan: Subcutaneous heparin - Time Spent with Patient Total time spent is greater than 50% in coordination of care (as documented) at patient's floor/unit and/or counseling patient: 25 - 35 minutes Plan of Care Discussed with: patient Internal Medicine: Result - Labs CBC & Chem 7: 12/31/18 01:20 12/31/18 01:20 Labs: BMP 12/31/18 01:20 Sodium 140 Potassium 3.6 Chloride 105 Carbon Dioxide 25 BUN 17 Creatinine 0.76 Glucose 98 Calcium 9.0 Cardiac Enzymes 12/31/18 Range/Units 01:20 Troponin I < 0.03 (< 0.04) ng/mL - ABG Interpretation ABG results: ABG ABG pH 7.49 pH Units (7.32-7.45) H 12/29/18 16:14 ABG pCO2 32 mmHg (35-45) L 12/29/18 16:14 ABG pO2 71 mmHg (85-104) L 12/29/18 16:14 ABG O2 Saturation 95 % (95-98) 12/29/18 16:14 PT/INR, D-dimer PT 13.4 Seconds (9.4-12.1) H 12/29/18 15:50 Consult Discharge Plan - Plan Referrals: NONE,PCP [Primary Care Provider] - (1) Urinary tract infection Qualifiers: Urinary tract infection type: acute cystitis Hematuria presence: without hematuria Qualified Code(s): N30.00 - Acute cystitis without hematuria (2) Sepsis Qualifiers: Sepsis type: sepsis due to unspecified organism Sepsis acute organ dysfunction status: unspecified Qualified Code(s): A41.9 - Sepsis, unspecified organism (3) Type 2 diabetes mellitus with hyperglycemia Qualifiers: Qualified Code(s): E11.65 - Type 2 diabetes mellitus with hyperglycemia; Z79.4 - long-term (current) use of insulin
[2019-01-02 05:12] LABS: BUN/Creatinine Ratio 20 (6-26); Blood Urea Nitrogen 20 mg/dL (6-20); Carbon Dioxide 25 mEq/L (23-29); Chloride 104 mEq/L (98-107); Glucose 188 mg/dL (70-105); Osmolality,Calculated 296 (280-300); Potassium 3.7 mEq/L (3.5-5.1); Sodium 139 mEq/L (136-145); eGFR For African Americans > 60 (> 60); eGFR For Non-African Americans 58 (> 60)
[2019-01-02] MEDS: cefTRIAXone 1,000 MG in Water for inj. (sterile) 10 ML IVP SCH (09:23)
[2019-01-02] MEDS: Lisinopril 20 MG TABLET PO SCH (09:24)
[2019-01-02] MEDS: Spironolactone 25 MG TABLET PO SCH (09:24)
[2019-01-02] MEDS: Insulin LISPRO 300 UNITS/3 ML VIAL SQ SCH ×4 (09:25→22:23)
[2019-01-02] MEDS: *HR* Heparin 5,000 UNIT/ML VIAL SQ SCH ×2 (09:25→17:21)
--- NOTE | 2019-01-02 15:11 | Internal Med Progress Note ---
Hospitalist Progress Note - Encounter Date of Encounter: 01/02/19 Time of Encounter: 15:09 - Subjective Interval History: Patient was seen and examined at bedside today. Patient denied any acute issues and concerns overnight. Patient denied any urinary frequency, urgency and burning. Patient denied any fever and chills. - Exam Vitals: Temp Pulse Resp BP Pulse Ox 98.2 F 74 17 142/86 96 01/02/19 11:33 01/02/19 11:33 01/02/19 11:33 01/02/19 11:33 01/02/19 11:33 Exam: General: In no acute distress. Respiratory exam: CTAB. no accessory muscle use, rales, rhonchi, wheezes Cardiovascular exam: RRR, +S1, +S2. no murmur, gallop, rubs. GI/Abdominal exam: Non-tender, Non-distended, normal bowel sounds, soft, no peritoneal signs. Extremities exam: no pedal edema, pulses palpable in b/l lower extremities. no calf tenderness. Neurological exam: CN II-XII intact, AO X3, no focal deficits. Skin exam: No skin rash - Assessment and Plan (1) Urinary tract infection Current Visit: Yes Status: Acute Assessment and Plan: Continue IV antibiotic. IV hydration. Urine culture final report showed Escherichia coli which was sensitive to all antibiotics. We will continue Rocephin while in the hospital. Anticipate discharge tomorrow to half-way facility. (2) Type 2 diabetes mellitus with hyperglycemia Current Visit: No Status: Chronic Assessment and Plan: Continue sliding scale insulin. We will continue to monitor. (3) DVT prophylaxis Current Visit: No Status: Acute Assessment and Plan: Subcutaneous heparin - Time Spent with Patient Total time spent is greater than 50% in coordination of care (as documented) at patient's floor/unit and/or counseling patient: 25 - 35 minutes Plan of Care Discussed with: patient Internal Medicine: Result - Labs CBC & Chem 7: 12/31/18 01:20 01/02/19 04:17 Labs: BMP 01/02/19 04:17 Sodium 139 Potassium 3.7 Chloride 104 Carbon Dioxide 25 BUN 20 Creatinine 0.99 Glucose 188 H Calcium 9.0 - ABG Interpretation ABG results: ABG ABG pH 7.49 pH Units (7.32-7.45) H 12/29/18 16:14 ABG pCO2 32 mmHg (35-45) L 12/29/18 16:14 ABG pO2 71 mmHg (85-104) L 12/29/18 16:14 ABG O2 Saturation 95 % (95-98) 12/29/18 16:14 PT/INR, D-dimer PT 13.4 Seconds (9.4-12.1) H 12/29/18 15:50 Consult Discharge Plan - Plan Referrals: NONE,PCP [Primary Care Provider] - (1) Urinary tract infection Qualifiers: Urinary tract infection type: acute cystitis Hematuria presence: without hematuria Qualified Code(s): N30.00 - Acute cystitis without hematuria (2) Type 2 diabetes mellitus with hyperglycemia Qualifiers: Qualified Code(s): E11.65 - Type 2 diabetes mellitus with hyperglycemia; Z79.4 - manager terminal (current) use of insulin
[2019-01-02] MEDS ORDERED: Acetaminophen IV 1,000 MG/100 ML INFUS..BTL IVPB ONE (22:23)
[2019-01-03] MEDS: *HR* Heparin 5,000 UNIT/ML VIAL SQ SCH ×2 (06:08→16:32)
[2019-01-03] MEDS: Spironolactone 25 MG TABLET PO SCH (09:05)
[2019-01-03] MEDS: Lisinopril 20 MG TABLET PO SCH (09:05)
[2019-01-03] MEDS: Insulin LISPRO 300 UNITS/3 ML VIAL SQ SCH ×3 (09:06→16:38)
[2019-01-03] MEDS: cefTRIAXone 1,000 MG in Water for inj. (sterile) 10 ML IVP SCH (09:06)
[2019-01-03 11:11] VITALS: BP 130/82
--- NOTE | 2019-01-03 14:12 | Discharge Summary ---
- NOTES TO OUTPATIENT PROVIDER Notes to Outpatient Provider: Patient is a 58-year-old female with past medical history of hypertension and atrial fibrillation, and not seeming cardiac myopathy was hospitalized due to sepsis likely secondary. Continue culture grew Escherichia coli which was sensitive to all antibiotics. Follow up on blood culture. Patient is Rocephin IV during her hospitalization. Patient recovered well. Patient has a PT/OT low during hospitalization due to weakness. [facility] Orders not resulted at time of discharge: Pending orders 12/29/18 16:00 Culture,Blood [BC] Stat Estimated PT Needs at Discharge: SNF/ECF Date of Encounter: 01/03/19 Time of Encounter: 14:09 - Discharge Diagnosis (1) Urinary tract infection Priority: Primary Status: Acute Qualifiers: Urinary tract infection type: acute cystitis Hematuria presence: without hematuria Qualified Code(s): N30.00 - Acute cystitis without hematuria (2) Type 2 diabetes mellitus with hyperglycemia Priority: Secondary Status: Chronic Qualifiers: Qualified Code(s): E11.65 - Type 2 diabetes mellitus with hyperglycemia; Z79.4 - keno terminal operator (current) use of insulin (3) DVT prophylaxis Priority: Secondary Status: Acute Hospital course: Ms. Song is a 58 year old female with past medical history of hypertension and atrial fibrillation, and not seeming cardiac myopathy was hospitalized due to sepsis likely secondary. Continue culture grew Escherichia coli which was sensitive to antibiotics. Patient is Rocephin IV during her hospitalization. Patient recovered well. Patient has a PT/OT low during hospitalization due to weakness. [facility]. - Time Spent with Patient Total time spent providing and/or coordinating discharge services: 45 Time spent: Greater than 30 minutes - Discharge Medications Prescriptions: Continued Insulin ASPART [Novolog Flexpen] 0 units SQ TIDWM Spironolactone [Aldactone] 25 mg PO DAILY Carvedilol 12.5 mg PO BID Home Medications: Insulin ASPART [Novolog Flexpen] 0 units SQ TIDWM 09/22/17 [History] Carvedilol 12.5 mg PO BID 12/30/18 [History] Spironolactone [Aldactone] 25 mg PO DAILY 12/30/18 [History] Allergies/Adverse Reactions: Allergy/AdvReac Type Severity Reaction Status Date / Time No Known Allergies Allergy Verified 12/30/18 13:02 Date of admission: 12/29/18 19:58 Primary care physician: PCP NONE Consults: 12/31/18 10:55 Consult to Physical Therapy [CONS] Routine Comment: Evaluate, develop and implement POC Reason for Consult: improve mobility, discharge planning Does patient have active BEDREST order?: No Is patient medically & hemodynamically stable?: Yes 12/31/18 13:39 Consult to Occupational Therapy [CONS] Routine Comment: Evaluate, develop and implement POC Reason for Consult: improve mobility, discharge planning Does patient have active BEDREST order?: No Is patient medically & hemodynamically stable?: Yes Discharging clinician: Kalin Hudson - Constitutional Vitals: Temp Pulse Resp BP Pulse Ox 97.9 F 65 16 130/82 96 01/03/19 11:06 01/03/19 11:06 01/03/19 11:06 01/03/19 11:06 01/03/19 11:06 General appearance: Present: cooperative, A&O X 3, pleasant, no acute distress, answers questions appropriately Exam: General: In no acute distress. Respiratory exam: CTAB. no accessory muscle use, rales, rhonchi, wheezes Cardiovascular exam: RRR, +S1, +S2. no murmur, gallop, rubs. GI/Abdominal exam: Non-tender, Non-distended, normal bowel sounds, soft, no peritoneal signs. Extremities exam: no pedal edema, pulses palpable in b/l lower extremities. no calf tenderness. Neurological exam: CN II-XII intact, AO X3, no focal deficits. Skin exam: No skin rash - Patient Status Disposition: Transfer SNF Condition: Good Functional capacity at discharge: uses cane/walker Overall status at discharge: patient is progressing back to baseline - Discharge Instructions Follow Up With: NONE,PCP [Primary Care Provider] - Forms: ED Satisfaction Letter - Diet and Activity Activity: as per physical therapy, increase activity as tolerated Diet: diabetic diet, low salt diet
--- NOTE | 2019-01-03 14:16 | Physician Discharge Referral ---
ExtendedCare Referral Info Transfer To: SNF Provider in Charge after Transfer: PCP - Diagnosis (1) Urinary tract infection Priority: Primary Status: Acute (2) Type 2 diabetes mellitus with hyperglycemia Priority: Secondary Status: Chronic (3) CHF (congestive heart failure) Priority: Secondary Status: Acute (4) Debility Priority: Secondary Status: Acute (5) Weakness Priority: Secondary Status: Acute (6) DVT prophylaxis Priority: Secondary Status: Acute Prognosis: Good Aware of Diagnosis: Patient Aware of Prognosis: Patient - Transfer Medications Home Medications: Insulin ASPART [Novolog Flexpen] 0 units SQ TIDWM 09/22/17 [History] Carvedilol 12.5 mg PO BID 12/30/18 [History] Spironolactone [Aldactone] 25 mg PO DAILY 12/30/18 [History] Allergies/Adverse Reactions: Allergy/AdvReac Type Severity Reaction Status Date / Time No Known Allergies Allergy Verified 12/30/18 13:02 - Respiratory Orders Smoking Cessation: Smoking cessation has been advised. For more information, call the [place] Tobacco Quit Line at 1-185-BGRI-NOW. - Ancillary Orders May use pressure relief devices daily prn - Rehabiliation Orders Rehab Potential: Good Rehab Orders: ROM Exercises, Evaluation for Physical Therapy, Evaluation for Occupational Therapy - Treatments Skin tear care topically daily PRN per policy - Diet Orders No Added Salt (PARMJIT), Cardiac CERTIFICATION: I certify that the transfer of the above named patient to an Extended Care Facility is necessary for the continuing treatment of the diagnosis listed. The above information is true and accurate reflection of patient's current condition. Confidential - Redisclosure prohibited without a patient's written consent.
== END 2019-01-03 17:46 ==
LOC: EMEROOARM 15:30 → 3BNU 15:30 → SUATTDRO 19:58 → 2ANU 20:10
PROVIDERS: ADMIT Family Medicine; ATTEND Family Medicine

== ENCOUNTER 2019-04-23 09:41 | Observation (INO) ==
[2019-04-23] MEDS ORDERED: Naloxone 0.4 MG/ML INJ IVP PRN (16:11)
[2019-04-23] MEDS ORDERED: Ondansetron ODT 4 MG TAB.RAPDIS SL PRN (16:11)
[2019-04-23] MEDS ORDERED: D5% in 0.45% NACL 1,000 ML IVC SCH (16:15)
[2019-04-23] MEDS: carvediloL 6.25 MG TABLET PO SCH (17:11)
[2019-04-23] MEDS ORDERED: *HR* Dextrose 50 % in Water (Syg) 50 ML SYRINGE IVP PRN (20:52)
[2019-04-23] MEDS ORDERED: D5% in Water 1,000 ML IVC PRN (20:52)
[2019-04-23] MEDS ORDERED: Dextrose Gel 15 GM/37.5 ML TUBE PO PRN ×2 (20:52)
[2019-04-23] MEDS ORDERED: Insulin LISPRO 300 UNITS/3 ML VIAL SQ SCH (21:00)
[2019-04-24] MEDS: Insulin LISPRO 300 UNITS/3 ML VIAL SQ SCH ×3 (01:19→13:19)
[2019-04-24] MEDS ORDERED: Lidocaine -MPF 2% 2 ML VIAL ONE (07:12)
[2019-04-24] MEDS ORDERED: Propofol 500 MG/50 ML INFUS..BTL ONE (07:15)
[2019-04-24] MEDS ORDERED: *HR* Etomidate 40 MG/20 ML VIAL IVP ONE (08:16)
[2019-04-24] MEDS ORDERED: Spironolactone 25 MG TABLET PO SCH (09:00)
[2019-04-24] MEDS: carvediloL 6.25 MG TABLET PO SCH (12:01)
[2019-04-24 15:19] VITALS: BP 135/62
== END 2019-04-24 15:30 | disposition home or self-care (01) ==
LOC: 3NENU
PROVIDERS: ADMIT Surgery; ATTEND Surgery

== ENCOUNTER 2019-05-21 18:07 | Inpatient (IN) ==
[2019-05-21] MEDS ORDERED: Morphine Sulfate Immed Rel 15 MG TABLET PO STA (21:06)
[2019-05-21] MEDS ORDERED: Isovue-370 500 ML BOTTLE IVP ONE (21:08)
[2019-05-21 21:59] LABS: Basophils # 0.1 K/mcL (0.0-0.2); Eosinophils # 0.2 K/mcL (0.0-0.6); Eosinophils % 2.5 %; Hematocrit 45.6 % (35.3-44.9); Hemoglobin 14.4 g/dL (11.5-15.4); Immature Granulocytes % 0.5 % (0-4); Lymphocytes # 2.7 K/mcL (0.6-4.6); Lymphocytes % 33.5 %; Mean Corpuscular HGB Conc 31.6 g/dL (31.6-35.5); Mean Corpuscular Hemoglobin 24.2 pg (28.0-33.3); Mean Corpuscular Volume 76.8 fL (83.0-100.0); Mean Platelet Volume 9.8 fL (9.4-12.4); Monocytes # 0.6 K/mcL (0.0-1.3); Neutrophils # 4.4 K/mcL (1.6-8.9); Platelet Count 250 K/mcL (140-400); Red Blood Count 5.94 M/mcL (3.82-4.97); Red Cell Distribution Width 16.2 % (11.5-14.5); Segmented Neutrophils % 54.5 %
[2019-05-21 22:11] LABS: BUN/Creatinine Ratio 31 (6-26); Blood Urea Nitrogen 28 mg/dL (6-20); Calcium 8.9 mg/dL (8.6-10.3); Carbon Dioxide 21 mEq/L (23-29); Chloride 111 mEq/L (98-107); Glucose 93 mg/dL (70-105); Osmolality,Calculated 295 (280-300); Potassium 4.2 mEq/L (3.5-5.1); Sodium 140 mEq/L (136-145); eGFR For African Americans > 60 (> 60); eGFR For Non-African Americans > 60 (> 60)
[2019-05-21 22:13] LABS: Troponin I < 0.03 ng/mL (< 0.04)
[2019-05-22] MEDS ORDERED: Furosemide 40 MG in 0.9 % Sodium Chloride 50 ML IV ONE (00:26)
[2019-05-22] MEDS ORDERED: Naloxone 0.4 MG/ML INJ IVP PRN (05:50)
[2019-05-22] MEDS ORDERED: Ondansetron ODT 4 MG TAB.RAPDIS SL PRN (05:50)
[2019-05-22] MEDS ORDERED: *HR* Heparin 5,000 UNIT/ML VIAL IVP ONE (06:35)
[2019-05-22] MEDS ORDERED: Heparin 25,000 UNIT/250 ML D5W 25,000 UNIT/250 ML IV.SOLN IVC SCH (06:45)
[2019-05-22] MEDS ORDERED: Perflutren Lipid Microsphere 1.3 ML in 0.9 % Sodium Chloride 8.7 ML IVP ONE (07:27)
[2019-05-22] MEDS: Insulin LISPRO 300 UNITS/3 ML VIAL SQ SCH ×3 (08:48→20:32)
[2019-05-22] MEDS: Nystatin Cream 15 GM TUBE TP SCH ×2 (08:48→21:25)
[2019-05-22] MEDS: carvediloL 6.25 MG TABLET PO SCH ×2 (08:48→20:33)
[2019-05-22] MEDS: Furosemide 40 MG/4 ML VIAL IVP SCH ×2 (08:48→20:32)
[2019-05-22 13:07] LABS: INR 1.6; Prothrombin Time 18.2 Seconds (9.4-12.1)
[2019-05-22] MEDS ORDERED: *HR* OxyCODONE/APAP 5/325 TABLET PO PRN (17:20)
[2019-05-22] MEDS ORDERED: Sennosides 8.6 MG TABLET PO PRN (18:51)
[2019-05-22] MEDS: Nystatin POWDER 30 GM BOTTLE TP SCH ×2 (20:33→21:26)
[2019-05-22] MEDS: *HR* Rivaroxaban 10 MG TABLET PO SCH (20:33)
[2019-05-22] MEDS: Sennosides/Docusate Sodium TABLET PO SCH (20:33)
[2019-05-23 02:32] LABS: Basophils # 0.1 K/mcL (0.0-0.2); Basophils % 1.6 %; Eosinophils # 0.1 K/mcL (0.0-0.6); Eosinophils % 3.1 %; Hematocrit 44.1 % (35.3-44.9); Hemoglobin 13.8 g/dL (11.5-15.4); Immature Granulocytes % 0.4 % (0-4); Lymphocytes # 1.4 K/mcL (0.6-4.6); Lymphocytes % 31.5 %; Mean Corpuscular HGB Conc 31.3 g/dL (31.6-35.5); Mean Corpuscular Hemoglobin 24.4 pg (28.0-33.3); Mean Corpuscular Volume 77.9 fL (83.0-100.0); Mean Platelet Volume 10.2 fL (9.4-12.4); Monocytes # 0.4 K/mcL (0.0-1.3); Monocytes % 8.3 %; Neutrophils # 2.5 K/mcL (1.6-8.9); Platelet Count 195 K/mcL (140-400); Red Blood Count 5.66 M/mcL (3.82-4.97); Red Cell Distribution Width 15.9 % (11.5-14.5); Segmented Neutrophils % 55.1 %; White Blood Count 4.5 K/mcL (4.3-11.1)
[2019-05-23 02:44] LABS: Calcium 8.9 mg/dL (8.6-10.3)
[2019-05-23] MEDS ORDERED: Furosemide 40 MG/4 ML VIAL IVP SCH (09:00)
[2019-05-23] MEDS: carvediloL 6.25 MG TABLET PO SCH ×2 (09:08→16:26)
[2019-05-23] MEDS: Sennosides/Docusate Sodium TABLET PO SCH ×2 (09:08→20:29)
[2019-05-23] MEDS: Insulin LISPRO 300 UNITS/3 ML VIAL SQ SCH ×3 (09:08→16:27)
[2019-05-23] MEDS: Furosemide 20 MG/2 ML VIAL IVP SCH ×3 (09:08→20:29)
[2019-05-23] MEDS: Nystatin POWDER 30 GM BOTTLE TP SCH ×3 (09:09→20:29)
[2019-05-23] MEDS: Nystatin Cream 15 GM TUBE TP SCH ×2 (09:10→20:30)
[2019-05-23 10:26] LABS: Estimated Average Glucose 197 mg/dl
[2019-05-23 15:12] LABS: Bilirubin,Urine Negative (Negative); Blood,Urine Large (Negative); Clarity,Urine Clear (Clear); Color,Urine Yellow (Yellow); Glucose,Urine (UA) Normal (Normal); Ketones,Urine Negative (Negative); Leukocyte Esterase,Urine Moderate (Negative); Nitrite,Urine Negative (Negative); Protein,Urine 30 mg/dL (Neg-Trace); Specific Gravity,Urine 1.017 (1.010-1.025); Urobilinogen,Urine Normal (Normal)
[2019-05-23] MEDS: *HR* Rivaroxaban 10 MG TABLET PO SCH (16:26)
[2019-05-24 04:49] LABS: Basophils % 0.8 %; Eosinophils # 0.1 K/mcL (0.0-0.6); Eosinophils % 2.7 %; Hematocrit 43.7 % (35.3-44.9); Hemoglobin 13.7 g/dL (11.5-15.4); Immature Granulocytes % 0.6 % (0-4); Lymphocytes # 1.8 K/mcL (0.6-4.6); Lymphocytes % 33.7 %; Mean Corpuscular HGB Conc 31.4 g/dL (31.6-35.5); Mean Corpuscular Hemoglobin 24.3 pg (28.0-33.3); Mean Corpuscular Volume 77.6 fL (83.0-100.0); Monocytes # 0.5 K/mcL (0.0-1.3); Monocytes % 8.9 %; Neutrophils # 2.8 K/mcL (1.6-8.9); Platelet Count 199 K/mcL (140-400); Red Blood Count 5.63 M/mcL (3.82-4.97); Red Cell Distribution Width 15.9 % (11.5-14.5); Segmented Neutrophils % 53.3 %; White Blood Count 5.3 K/mcL (4.3-11.1)
[2019-05-24 05:02] LABS: Calcium 9.1 mg/dL (8.6-10.3); Magnesium 2.1 mg/dL (1.6-2.6); Phosphorous 4.1 mg/dL (2.7-4.5); Potassium 3.9 mEq/L (3.5-5.1)
[2019-05-24] MEDS: Acetaminophen 325 MG TABLET PO PRN (08:38)
[2019-05-24] MEDS: Insulin LISPRO 300 UNITS/3 ML VIAL SQ SCH ×3 (08:38→18:30)
[2019-05-24] MEDS: carvediloL 6.25 MG TABLET PO SCH ×2 (08:39→16:51)
[2019-05-24] MEDS: Sennosides/Docusate Sodium TABLET PO SCH ×2 (08:39→21:46)
[2019-05-24] MEDS ORDERED: Spironolactone 25 MG TABLET PO SCH (09:00)
[2019-05-24] MEDS: Nystatin POWDER 30 GM BOTTLE TP SCH ×4 (09:01→21:45)
[2019-05-24] MEDS: Nystatin Cream 15 GM TUBE TP SCH ×3 (09:01→21:34)
[2019-05-24] MEDS ORDERED: Albumin 25% 25gram/100mL 25 GM/100 ML IV.SOLN IVPB ONE (15:01)
[2019-05-24] MEDS ORDERED: Furosemide 20 MG/2 ML VIAL IVP ONE (16:00)
[2019-05-24] MEDS: *HR* Rivaroxaban 10 MG TABLET PO SCH (16:51)
[2019-05-25 04:46] LABS: Basophils % 0.5 %; Eosinophils # 0.2 K/mcL (0.0-0.6); Eosinophils % 3.4 %; Hemoglobin 13.7 g/dL (11.5-15.4); Immature Granulocytes % 0.3 % (0-4); Lymphocytes # 2.1 K/mcL (0.6-4.6); Lymphocytes % 34.9 %; Mean Corpuscular HGB Conc 30.4 g/dL (31.6-35.5); Mean Corpuscular Hemoglobin 24.5 pg (28.0-33.3); Mean Corpuscular Volume 80.4 fL (83.0-100.0); Mean Platelet Volume 10.5 fL (9.4-12.4); Monocytes # 0.6 K/mcL (0.0-1.3); Monocytes % 9.5 %; Platelet Count 196 K/mcL (140-400); Red Cell Distribution Width 15.9 % (11.5-14.5); Segmented Neutrophils % 51.4 %; White Blood Count 5.9 K/mcL (4.3-11.1)
[2019-05-25 05:03] LABS: BUN/Creatinine Ratio 25 (6-26); Blood Urea Nitrogen 26 mg/dL (6-20); Calcium 9.4 mg/dL (8.6-10.3); Carbon Dioxide 28 mEq/L (23-29); Chloride 103 mEq/L (98-107); Glucose 181 mg/dL (70-105); Osmolality,Calculated 297 (280-300); Potassium 3.7 mEq/L (3.5-5.1); Sodium 139 mEq/L (136-145); eGFR For African Americans > 60 (> 60); eGFR For Non-African Americans 55 (> 60)
[2019-05-25] MEDS ORDERED: Albumin 25% 25gram/100mL 25 GM/100 ML IV.SOLN IVPB ONE (09:19)
[2019-05-25] MEDS ORDERED: Furosemide 40 MG/4 ML VIAL IVP ONE (09:19)
[2019-05-25] MEDS: Nystatin Cream 15 GM TUBE TP SCH ×2 (09:27→21:03)
[2019-05-25] MEDS: Insulin LISPRO 300 UNITS/3 ML VIAL SQ SCH ×3 (09:28→17:11)
[2019-05-25] MEDS: Nystatin POWDER 30 GM BOTTLE TP SCH ×3 (09:28→21:03)
[2019-05-25] MEDS: carvediloL 6.25 MG TABLET PO SCH ×2 (09:28→17:10)
[2019-05-25] MEDS: Sennosides/Docusate Sodium TABLET PO SCH ×2 (09:29→21:03)
[2019-05-25] MEDS: Acetaminophen 325 MG TABLET PO PRN (09:45)
[2019-05-25] MEDS: Aspirin Enteric Coated 81 MG Tablet PO SCH (10:48)
[2019-05-25 13:26] LABS: Adenovirus F 40/41 PCR Not detected (Not detect); Astrovirus PCR Not detected (Not detect); C.difficile Toxin A/B Gene PCR Not detected (Not detect); Campylobacter by PCR Not detected (Not detect); Cryptosporidium by PCR Not detected (Not detect); Cyclospora cayetanensis PCR Not detected (Not detect); E. coli O157 by PCR Not detected (Not detect); Entamoeba histolytica PCR Not detected (Not detect); Enteroaggregative E.coli(EAEC) Not detected (Not detect); Enteropathogenic E.coli(EPEC) Not detected (Not detect); Enterotoxigenic E.coli (ETEC) Not detected (Not detect); Giardia lamblia PCR Not detected (Not detect); Norovirus GI/GII PCR Not detected (Not detect); Plesiomonas shigelloides PCR Not detected (Not detect); Rotavirus A PCR Not detected (Not detect); Salmonella PCR Not detected (Not detect); Sapovirus PCR Not detected (Not detect); Shig/EnteroinvasiveE coli EIEC Not detected (Not detect); Shigalike tox-prod E coli STEC Not detected (Not detect); Vibrio PCR Not detected (Not detect); Vibrio cholerae PCR Not detected (Not detect); Yersinia enterocolitica PCR Not detected (Not detect)
[2019-05-25] MEDS: Furosemide 20 MG/2 ML VIAL IVP SCH ×2 (14:38→17:10)
[2019-05-25] MEDS: *HR* Rivaroxaban 10 MG TABLET PO SCH (17:10)
[2019-05-26 04:47] LABS: Basophils % 0.8 %; Eosinophils # 0.2 K/mcL (0.0-0.6); Eosinophils % 4.2 %; Hematocrit 44.9 % (35.3-44.9); Hemoglobin 13.6 g/dL (11.5-15.4); Immature Granulocytes % 0.4 % (0-4); Lymphocytes # 1.7 K/mcL (0.6-4.6); Lymphocytes % 33.1 %; Mean Corpuscular HGB Conc 30.3 g/dL (31.6-35.5); Mean Corpuscular Hemoglobin 24.3 pg (28.0-33.3); Mean Corpuscular Volume 80.3 fL (83.0-100.0); Mean Platelet Volume 10.2 fL (9.4-12.4); Monocytes # 0.5 K/mcL (0.0-1.3); Monocytes % 9.6 %; Neutrophils # 2.7 K/mcL (1.6-8.9); Platelet Count 179 K/mcL (140-400); Red Blood Count 5.59 M/mcL (3.82-4.97); Red Cell Distribution Width 15.6 % (11.5-14.5); Segmented Neutrophils % 51.9 %; White Blood Count 5.2 K/mcL (4.3-11.1)
[2019-05-26 05:06] LABS: BUN/Creatinine Ratio 25 (6-26); Blood Urea Nitrogen 22 mg/dL (6-20); Calcium 9.5 mg/dL (8.6-10.3); Carbon Dioxide 29 mEq/L (23-29); Chloride 101 mEq/L (98-107); Glucose 158 mg/dL (70-105); Osmolality,Calculated 301 (280-300); Potassium 3.4 mEq/L (3.5-5.1); Sodium 142 mEq/L (136-145); eGFR For African Americans > 60 (> 60); eGFR For Non-African Americans > 60 (> 60)
[2019-05-26] MEDS: Acetaminophen 325 MG TABLET PO PRN (09:53)
[2019-05-26] MEDS: Insulin LISPRO 300 UNITS/3 ML VIAL SQ SCH ×3 (09:54→18:35)
[2019-05-26] MEDS: carvediloL 6.25 MG TABLET PO SCH ×2 (09:54→16:27)
[2019-05-26] MEDS: Furosemide 20 MG/2 ML VIAL IVP SCH ×2 (09:54→16:27)
[2019-05-26] MEDS: Aspirin Enteric Coated 81 MG Tablet PO SCH (09:54)
[2019-05-26] MEDS: Sennosides/Docusate Sodium TABLET PO SCH ×2 (09:55→20:31)
[2019-05-26] MEDS: Nystatin POWDER 30 GM BOTTLE TP SCH ×3 (09:55→20:34)
[2019-05-26] MEDS: Nystatin Cream 15 GM TUBE TP SCH ×2 (09:55→20:35)
[2019-05-26] MEDS: *HR* Rivaroxaban 10 MG TABLET PO SCH (16:27)
[2019-05-26] MEDS: Spironolactone 25 MG TABLET PO SCH (16:32)
[2019-05-27] MEDS ORDERED: Spironolactone 25 MG TABLET PO SCH (09:00)
[2019-05-27] MEDS: carvediloL 6.25 MG TABLET PO SCH ×2 (09:48→17:33)
[2019-05-27] MEDS: Aspirin Enteric Coated 81 MG Tablet PO SCH (09:48)
[2019-05-27] MEDS: Furosemide 20 MG/2 ML VIAL IVP SCH ×2 (09:48→17:33)
[2019-05-27] MEDS: Nystatin POWDER 30 GM BOTTLE TP SCH ×3 (09:49→20:26)
[2019-05-27] MEDS: Insulin LISPRO 300 UNITS/3 ML VIAL SQ SCH ×3 (09:49→17:34)
[2019-05-27] MEDS: *HR* Rivaroxaban 15 MG TABLET PO SCH ×2 (09:49→20:25)
[2019-05-27] MEDS: Spironolactone 25 MG TABLET PO SCH (09:49)
[2019-05-27] MEDS: Nystatin Cream 15 GM TUBE TP SCH ×2 (09:50→20:25)
[2019-05-27] MEDS: Sennosides/Docusate Sodium TABLET PO SCH ×2 (09:50→20:25)
[2019-05-27 10:21] LABS: Basophils % 0.7 %; Eosinophils # 0.2 K/mcL (0.0-0.6); Eosinophils % 3.3 %; Hematocrit 45.4 % (35.3-44.9); Immature Granulocytes % 0.6 % (0-4); Lymphocytes # 1.4 K/mcL (0.6-4.6); Lymphocytes % 25.7 %; Mean Corpuscular HGB Conc 30.8 g/dL (31.6-35.5); Mean Corpuscular Hemoglobin 23.9 pg (28.0-33.3); Mean Corpuscular Volume 77.5 fL (83.0-100.0); Mean Platelet Volume 9.8 fL (9.4-12.4); Monocytes # 0.5 K/mcL (0.0-1.3); Monocytes % 8.8 %; Neutrophils # 3.3 K/mcL (1.6-8.9); Platelet Count 186 K/mcL (140-400); Red Blood Count 5.86 M/mcL (3.82-4.97); Red Cell Distribution Width 15.6 % (11.5-14.5); Segmented Neutrophils % 60.9 %; White Blood Count 5.5 K/mcL (4.3-11.1)
[2019-05-27 10:32] LABS: BUN/Creatinine Ratio 23 (6-26); Blood Urea Nitrogen 20 mg/dL (6-20); Calcium 9.2 mg/dL (8.6-10.3); Carbon Dioxide 27 mEq/L (23-29); Chloride 103 mEq/L (98-107); Glucose 220 mg/dL (70-105); Osmolality,Calculated 297 (280-300); Potassium 3.6 mEq/L (3.5-5.1); Sodium 139 mEq/L (136-145); eGFR For African Americans > 60 (> 60); eGFR For Non-African Americans > 60 (> 60)
[2019-05-28] MEDS: Spironolactone 25 MG TABLET PO SCH (09:27)
[2019-05-28] MEDS: Acetaminophen 325 MG TABLET PO PRN (09:27)
[2019-05-28] MEDS: carvediloL 6.25 MG TABLET PO SCH ×2 (09:27→17:07)
[2019-05-28] MEDS: Sennosides/Docusate Sodium TABLET PO SCH (09:27)
[2019-05-28] MEDS: Aspirin Enteric Coated 81 MG Tablet PO SCH (09:27)
[2019-05-28] MEDS: *HR* Rivaroxaban 15 MG TABLET PO SCH (09:27)
[2019-05-28] MEDS: Nystatin POWDER 30 GM BOTTLE TP SCH ×2 (09:28→17:07)
[2019-05-28] MEDS: Nystatin Cream 15 GM TUBE TP SCH (09:28)
[2019-05-28] MEDS: Furosemide 20 MG/2 ML VIAL IVP SCH (09:28)
[2019-05-28] MEDS: Furosemide 40 MG TABLET PO SCH ×2 (09:32→17:07)
[2019-05-28] MEDS: Insulin LISPRO 300 UNITS/3 ML VIAL SQ SCH ×3 (09:33→17:05)
[2019-05-28 15:24] VITALS: BP 112/70
[2019-06-17] MEDS ORDERED: *HR* Rivaroxaban 10 MG TABLET PO SCH (17:00)
== END 2019-05-28 19:03 | DRG 291 ==
LOC: EMEROOARM 18:07 → CDU 18:07 → SUATTDRO 05-22 02:33 → CDU 05-22 03:37 → SUATTDRO 05-22 10:05 → 3BNU 05-22 19:53
PROVIDERS: ADMIT Internal Medicine; ATTEND Internal Medicine

== ENCOUNTER 2019-08-27 20:47 | Inpatient (IN) ==
[2019-08-27 21:56] LABS: Basophils # 0.1 K/mcL (0.0-0.2); Basophils % 0.8 %; Eosinophils # 0.1 K/mcL (0.0-0.6); Eosinophils % 1.1 %; Hematocrit 32.9 % (35.3-44.9); Hemoglobin 10.6 g/dL (11.5-15.4); Immature Granulocytes % 3.6 % (0-4); Lymphocytes % 17.8 %; Mean Corpuscular HGB Conc 32.2 g/dL (31.6-35.5); Mean Corpuscular Hemoglobin 25.5 pg (28.0-33.3); Mean Corpuscular Volume 79.3 fL (83.0-100.0); Mean Platelet Volume 10.1 fL (9.4-12.4); Monocytes # 0.8 K/mcL (0.0-1.3); Monocytes % 7.5 %; Neutrophils # 7.6 K/mcL (1.6-8.9); Platelet Count 187 K/mcL (140-400); Red Blood Count 4.15 M/mcL (3.82-4.97); Red Cell Distribution Width 19.4 % (11.5-14.5); Segmented Neutrophils % 69.2 %; White Blood Count 10.9 K/mcL (4.3-11.1)
[2019-08-27 21:58] LABS: Bilirubin,Urine Small (Negative); Blood,Urine Negative (Negative); Clarity,Urine Cloudy (Clear); Color,Urine Yellow (Yellow); Glucose,Urine (UA) >=1000 mg/dL (Normal); Ketones,Urine Negative (Negative); Leukocyte Esterase,Urine Negative (Negative); Nitrite,Urine Negative (Negative); PH,Urine 5.5 pH Units (5.0-8.0); Protein,Urine 30 mg/dL (Neg-Trace); Specific Gravity,Urine 1.023 (1.010-1.025); Urobilinogen,Urine Normal (Normal)
[2019-08-27 22:01] LABS: Bacteria,Urine Many per hpf (None-Few); Hyaline Casts,Urine Few per lpf (None-Few); RBC,Urine 0-3 per hpf (0-3); Squamous Epithelial Cell,Urine Many per lpf (None-Few)
[2019-08-27 22:03] LABS: INR 2.4; Prothrombin Time 27.7 Seconds (9.4-12.1)
[2019-08-27 22:05] LABS: Activated Partial Thrombo Time 40.1 Seconds (26.0-36.0)
[2019-08-27 22:14] LABS: Calcium 8.9 mg/dL (8.6-10.3); Potassium 4.7 mEq/L (3.5-5.1)
[2019-08-27 22:20] LABS: Yeast,Urine Few per hpf (None Seen)
[2019-08-28] MEDS ORDERED: Naloxone 0.4 MG/ML INJ IVP PRN (00:43)
[2019-08-28] MEDS ORDERED: D5% in Water 1,000 ML IVC PRN (01:03)
[2019-08-28] MEDS ORDERED: Dextrose Gel 15 GM/37.5 ML TUBE PO PRN ×2 (01:03)
[2019-08-28] MEDS ORDERED: *HR* Dextrose 50 % in Water (Syg) 50 ML SYRINGE IVP PRN (01:03)
[2019-08-28 01:54] LABS: Hematocrit 32.9 % (35.3-44.9); Hemoglobin 10.2 g/dL (11.5-15.4); Mean Corpuscular Hemoglobin 24.7 pg (28.0-33.3); Mean Corpuscular Volume 79.7 fL (83.0-100.0); Platelet Count 184 K/mcL (140-400); Red Blood Count 4.13 M/mcL (3.82-4.97); Red Cell Distribution Width 19.1 % (11.5-14.5); White Blood Count 9.8 K/mcL (4.3-11.1)
[2019-08-28 02:17] LABS: Albumin 3.1 g/dL (3.5-5.7); Albumin/Globulin Ratio 0.9 (1.1-2.2); Bilirubin,Total 0.5 mg/dL (0.3-1.0); Calcium 8.7 mg/dL (8.6-10.3); Globulin 3.4 g/dL (2.4-3.5); Potassium 4.3 mEq/L (3.5-5.1); Total Protein 6.5 g/dL (6.4-8.9)
[2019-08-28] MEDS ORDERED: Insulin LISPRO 300 UNITS/3 ML VIAL SQ ONE (03:06)
[2019-08-28] MEDS: Insulin DETEMIR 100 UNIT/ML X5UNITS SQ SCH ×2 (04:10→20:26)
[2019-08-28] MEDS: carvediloL 6.25 MG TABLET PO SCH ×2 (08:28→17:07)
[2019-08-28] MEDS: *HR* Rivaroxaban 10 MG TABLET PO SCH (08:28)
[2019-08-28] MEDS: Aspirin Enteric Coated 81 MG Tablet PO SCH (08:28)
[2019-08-28] MEDS: Insulin LISPRO 300 UNITS/3 ML VIAL SQ SCH ×3 (08:29→17:09)
[2019-08-28] MEDS: Nystatin Cream 15 GM TUBE TP SCH ×2 (08:33→20:26)
[2019-08-28] MEDS ORDERED: Spironolactone 25 MG TABLET PO SCH (09:00)
[2019-08-28] MEDS: Piperacillin/Tazobactam 3.375 GM in 0.9 % Sodium Chloride Mini Bag 100 ML IVPB SCH ×2 (09:45→17:05)
[2019-08-28] MEDS ORDERED: *HR* HYDROcodone/Acet 5/325 mg TABLET PO PRN (12:35)
[2019-08-29] MEDS: Piperacillin/Tazobactam 3.375 GM in 0.9 % Sodium Chloride Mini Bag 100 ML IVPB SCH ×4 (02:34→23:30)
[2019-08-29 02:49] LABS: Basophils # 0.2 K/mcL (0.0-0.2); Basophils % 2.3 %; Eosinophils # 0.2 K/mcL (0.0-0.6); Eosinophils % 2.3 %; Hematocrit 34.3 % (35.3-44.9); Hemoglobin 11.1 g/dL (11.5-15.4); Immature Granulocytes % 10.4 % (0-4); Lymphocytes # 2.8 K/mcL (0.6-4.6); Lymphocytes % 26.3 %; Mean Corpuscular HGB Conc 32.4 g/dL (31.6-35.5); Mean Corpuscular Hemoglobin 25.5 pg (28.0-33.3); Mean Corpuscular Volume 78.9 fL (83.0-100.0); Mean Platelet Volume 9.9 fL (9.4-12.4); Monocytes # 0.9 K/mcL (0.0-1.3); Monocytes % 8.3 %; Neutrophils # 5.3 K/mcL (1.6-8.9); Platelet Count 243 K/mcL (140-400); Red Blood Count 4.35 M/mcL (3.82-4.97); Red Cell Distribution Width 19.2 % (11.5-14.5); Segmented Neutrophils % 50.4 %; White Blood Count 10.5 K/mcL (4.3-11.1)
[2019-08-29 03:09] LABS: BUN/Creatinine Ratio 28 (6-26); Blood Urea Nitrogen 32 mg/dL (6-20); Calcium 9.6 mg/dL (8.6-10.3); Carbon Dioxide 26 mEq/L (23-29); Chloride 106 mEq/L (98-107); Glucose 55 mg/dL (70-105); Osmolality,Calculated 294 (280-300); Phosphorous 5.1 mg/dL (2.7-4.5); Potassium 4.2 mEq/L (3.5-5.1); Sodium 140 mEq/L (136-145); eGFR For African Americans > 60 (> 60); eGFR For Non-African Americans 50 (> 60)
[2019-08-29 03:23] LABS: Reactive Lymphocytes Present (Not Present)
[2019-08-29 03:24] LABS: Platelet Estimate Normal (Normal)
[2019-08-29] MEDS: Aspirin Enteric Coated 81 MG Tablet PO SCH (07:46)
[2019-08-29] MEDS: Insulin LISPRO 300 UNITS/3 ML VIAL SQ SCH ×3 (07:46→16:30)
[2019-08-29] MEDS: *HR* Rivaroxaban 10 MG TABLET PO SCH (07:47)
[2019-08-29] MEDS: carvediloL 6.25 MG TABLET PO SCH ×2 (07:47→16:32)
[2019-08-29] MEDS: Nystatin Cream 15 GM TUBE TP SCH ×2 (07:48→22:36)
[2019-08-29] MEDS ORDERED: Aminoglycoside Consult 1 EACH MC ONE (14:50)
[2019-08-29] MEDS: Insulin DETEMIR 100 UNIT/ML X5UNITS SQ SCH (22:57)
[2019-08-30 07:58] VITALS: BP 162/81
[2019-08-30] MEDS: *HR* Rivaroxaban 10 MG TABLET PO SCH (08:59)
[2019-08-30] MEDS: carvediloL 6.25 MG TABLET PO SCH (08:59)
[2019-08-30] MEDS: Aspirin Enteric Coated 81 MG Tablet PO SCH (08:59)
[2019-08-30] MEDS: Nystatin Cream 15 GM TUBE TP SCH (09:00)
[2019-08-30] MEDS: Insulin LISPRO 300 UNITS/3 ML VIAL SQ SCH ×2 (09:01→12:10)
[2019-08-30] MEDS: Piperacillin/Tazobactam 3.375 GM in 0.9 % Sodium Chloride Mini Bag 100 ML IVPB SCH (09:01)
== END 2019-08-30 14:51 | disposition home health service (06) | DRG 638 ==
LOC: EMEROOARM 20:47 → 3BNU 20:47 → SUATTDRO 08-28 00:04 → 3BNU 08-28 00:35
PROVIDERS: ADMIT Student in an Organized Health Care Education/Training Program; ATTEND Internal Medicine

== ENCOUNTER 2021-06-24 11:32 | Observation (INO) ==
[2021-06-24 15:56] LABS: Basophils # 0.1 K/mcL (0.0-0.2); Basophils % 0.8 %; Eosinophils # 0.2 K/mcL (0.0-0.6); Eosinophils % 2.6 %; Hematocrit 44.9 % (35.3-44.9); Hemoglobin 13.2 g/dL (11.5-15.4); Immature Granulocytes % 0.3 % (0-4); Lymphocytes % 28.1 %; Mean Corpuscular HGB Conc 29.4 g/dL (31.6-35.5); Mean Corpuscular Hemoglobin 22.6 pg (28.0-33.3); Mean Corpuscular Volume 76.9 fL (83.0-100.0); Mean Platelet Volume 9.2 fL (9.4-12.4); Monocytes # 0.5 K/mcL (0.0-1.3); Monocytes % 6.9 %; Neutrophils # 4.4 K/mcL (1.6-8.9); Platelet Count 285 K/mcL (140-400); Red Blood Count 5.84 M/mcL (3.82-4.97); Red Cell Distribution Width 18.3 % (11.5-14.5); Segmented Neutrophils % 61.3 %; White Blood Count 7.2 K/mcL (4.3-11.1)
[2021-06-24 16:18] LABS: BUN/Creatinine Ratio 21 (6-26); Blood Urea Nitrogen 26 mg/dL (6-20); Calcium 8.9 mg/dL (8.6-10.3); Carbon Dioxide 23 mEq/L (23-29); Chloride 109 mEq/L (98-107); Glucose 149 mg/dL (70-105); Osmolality,Calculated 298 (280-300); Potassium 4.6 mEq/L (3.5-5.1); Sodium 140 mEq/L (136-145); Troponin I < 0.03 ng/mL (< 0.04); eGFR For African Americans 54 (> 60); eGFR For Non-African Americans 45 (> 60)
[2021-06-24] MEDS ORDERED: Melatonin 3 MG TABLET PO PRN (22:48)
[2021-06-24] MEDS ORDERED: Naloxone 0.4 MG/ML INJ IVP PRN (22:48)
[2021-06-24] MEDS ORDERED: Acetaminophen 325 MG TABLET PO PRN (22:48)
[2021-06-24] MEDS ORDERED: Ondansetron ODT 4 MG TAB.RAPDIS SL PRN (22:48)
[2021-06-24] MEDS ORDERED: *HR* Dextrose 50 % in Water (Syg) 50 ML SYRINGE IVP PRN (22:51)
[2021-06-24] MEDS ORDERED: D5% in Water 1,000 ML IVC PRN (22:51)
[2021-06-24] MEDS ORDERED: Dextrose Gel 15 GM/37.5 ML TUBE PO PRN ×2 (22:51)
[2021-06-24] MEDS ORDERED: Gadolinium Contrast Agent (WT Based) IV PRN (22:58)
[2021-06-24] MEDS ORDERED: 0.9 % Sodium Chloride 1,000 ML IVC SCH (23:00)
[2021-06-24] MEDS: Insulin LISPRO 300 UNITS/3 ML VIAL SUBQ SCH (23:43)
[2021-06-24] MEDS: *HR* HYDROcodone/Acet 5/325 mg TABLET PO PRN (23:43)
[2021-06-25] MEDS: *HR* OxyCODONE Immed Rel 5 MG TABLET PO PRN ×2 (05:05→18:08)
[2021-06-25] MEDS ORDERED: *HR* Heparin 5,000 UNIT/ML VIAL SQ SCH (06:00)
[2021-06-25 07:17] LABS: Hematocrit 44.6 % (35.3-44.9); Mean Corpuscular HGB Conc 29.1 g/dL (31.6-35.5); Mean Corpuscular Hemoglobin 22.4 pg (28.0-33.3); Mean Corpuscular Volume 76.8 fL (83.0-100.0); Mean Platelet Volume 9.6 fL (9.4-12.4); Platelet Count 291 K/mcL (140-400); Red Blood Count 5.81 M/mcL (3.82-4.97); Red Cell Distribution Width 18.2 % (11.5-14.5); White Blood Count 5.9 K/mcL (4.3-11.1)
[2021-06-25 07:19] LABS: INR 1.6; Prothrombin Time 18.1 Seconds (9.4-12.1)
[2021-06-25 07:22] LABS: Activated Partial Thrombo Time 34.4 Seconds (26.0-36.0)
[2021-06-25 07:29] LABS: Albumin 3.3 g/dL (3.5-5.7); Albumin/Globulin Ratio 1.1 (1.1-2.2); Bilirubin,Total 0.7 mg/dL (0.3-1.0); Calcium 8.9 mg/dL (8.6-10.3); Chol/HDL Ratio 3.2 (0-4.9); Globulin 2.9 g/dL (2.4-3.5); Magnesium 2.1 mg/dL (1.6-2.6); Phosphorous 3.4 mg/dL (2.7-4.5); Potassium 4.1 mEq/L (3.5-5.1); Total Protein 6.2 g/dL (6.4-8.9)
[2021-06-25] MEDS: carvediloL 6.25 MG TABLET PO SCH ×2 (07:47→18:05)
[2021-06-25] MEDS: Insulin LISPRO 300 UNITS/3 ML VIAL SUBQ SCH ×4 (07:47→20:51)
[2021-06-25] MEDS: *HR* Rivaroxaban 10 MG TABLET PO SCH (07:47)
[2021-06-25] MEDS: Aspirin Enteric Coated 81 MG Tablet PO SCH (07:47)
[2021-06-25] MEDS ORDERED: Perflutren Lipid Microsphere 1.3 ML in 0.9 % Sodium Chloride 8.7 ML IVP PRN (10:47)
[2021-06-25] MEDS ORDERED: Furosemide 20 MG/2 ML VIAL IVP ONE (17:19)
[2021-06-26 01:22] LABS: Basophils # 0.1 K/mcL (0.0-0.2); Basophils % 1.3 %; Eosinophils # 0.4 K/mcL (0.0-0.6); Eosinophils % 5.2 %; Hematocrit 44.1 % (35.3-44.9); Hemoglobin 12.8 g/dL (11.5-15.4); Immature Granulocytes % 0.4 % (0-4); Lymphocytes # 2.3 K/mcL (0.6-4.6); Lymphocytes % 33.4 %; Mean Corpuscular Hemoglobin 22.5 pg (28.0-33.3); Mean Corpuscular Volume 77.6 fL (83.0-100.0); Mean Platelet Volume 9.6 fL (9.4-12.4); Monocytes # 0.9 K/mcL (0.0-1.3); Monocytes % 12.6 %; Neutrophils # 3.3 K/mcL (1.6-8.9); Platelet Count 260 K/mcL (140-400); Red Blood Count 5.68 M/mcL (3.82-4.97); Red Cell Distribution Width 17.8 % (11.5-14.5); Segmented Neutrophils % 47.1 %; White Blood Count 6.9 K/mcL (4.3-11.1)
[2021-06-26 01:48] LABS: Calcium 8.3 mg/dL (8.6-10.3); Potassium 4.4 mEq/L (3.5-5.1)
[2021-06-26 05:11] LABS: Estimated Average Glucose 169 mg/dl; Hemoglobin A1C 7.5 %
[2021-06-26] MEDS: Insulin LISPRO 300 UNITS/3 ML VIAL SUBQ SCH ×4 (07:41→19:36)
[2021-06-26] MEDS: Aspirin Enteric Coated 81 MG Tablet PO SCH (08:07)
[2021-06-26] MEDS: *HR* Rivaroxaban 10 MG TABLET PO SCH (08:07)
[2021-06-26] MEDS: carvediloL 6.25 MG TABLET PO SCH ×2 (08:07→17:48)
[2021-06-26] MEDS: Albumin 25% 25gram/100mL 25 GM/100 ML IV.SOLN IVPB SCH (17:48)
[2021-06-26] MEDS: *HR* OxyCODONE Immed Rel 5 MG TABLET PO PRN (19:39)
[2021-06-27] MEDS: Albumin 25% 25gram/100mL 25 GM/100 ML IV.SOLN IVPB SCH ×2 (02:01→08:58)
[2021-06-27 04:39] LABS: Basophils # 0.1 K/mcL (0.0-0.2); Basophils % 0.9 %; Eosinophils # 0.4 K/mcL (0.0-0.6); Eosinophils % 5.2 %; Hematocrit 44.4 % (35.3-44.9); Immature Granulocytes % 0.4 % (0-4); Lymphocytes # 1.9 K/mcL (0.6-4.6); Lymphocytes % 24.3 %; Mean Corpuscular HGB Conc 29.3 g/dL (31.6-35.5); Mean Corpuscular Hemoglobin 22.3 pg (28.0-33.3); Mean Platelet Volume 9.6 fL (9.4-12.4); Monocytes # 0.8 K/mcL (0.0-1.3); Monocytes % 10.2 %; Neutrophils # 4.6 K/mcL (1.6-8.9); Platelet Count 251 K/mcL (140-400); Red Blood Count 5.84 M/mcL (3.82-4.97); Red Cell Distribution Width 18.1 % (11.5-14.5); White Blood Count 7.7 K/mcL (4.3-11.1)
[2021-06-27 04:55] LABS: Calcium 9.1 mg/dL (8.6-10.3); Potassium 4.4 mEq/L (3.5-5.1)
[2021-06-27] MEDS: Insulin LISPRO 300 UNITS/3 ML VIAL SUBQ SCH ×4 (07:42→21:11)
[2021-06-27] MEDS: Aspirin Enteric Coated 81 MG Tablet PO SCH (08:59)
[2021-06-27] MEDS: *HR* Rivaroxaban 10 MG TABLET PO SCH (08:59)
[2021-06-27] MEDS: carvediloL 6.25 MG TABLET PO SCH ×2 (08:59→17:53)
[2021-06-28] MEDS: Insulin LISPRO 300 UNITS/3 ML VIAL SUBQ SCH ×4 (08:31→21:08)
[2021-06-28] MEDS: *HR* Rivaroxaban 10 MG TABLET PO SCH (08:32)
[2021-06-28] MEDS: carvediloL 6.25 MG TABLET PO SCH ×2 (08:32→16:19)
[2021-06-28] MEDS: Aspirin Enteric Coated 81 MG Tablet PO SCH (08:32)
[2021-06-28] MEDS: cephALEXin 500 MG CAPSULE PO SCH ×2 (17:17→21:15)
[2021-06-28] MEDS: Nystatin POWDER 30 GM BOTTLE TP SCH (21:19)
[2021-06-29 06:04] LABS: Calcium 8.6 mg/dL (8.6-10.3); Potassium 4.4 mEq/L (3.5-5.1)
[2021-06-29] MEDS: Aspirin Enteric Coated 81 MG Tablet PO SCH (09:16)
[2021-06-29] MEDS: Insulin LISPRO 300 UNITS/3 ML VIAL SUBQ SCH ×4 (09:16→20:26)
[2021-06-29] MEDS: *HR* Rivaroxaban 10 MG TABLET PO SCH (09:16)
[2021-06-29] MEDS: cephALEXin 500 MG CAPSULE PO SCH ×4 (09:16→20:25)
[2021-06-29] MEDS: carvediloL 6.25 MG TABLET PO SCH ×2 (09:18→17:10)
[2021-06-29] MEDS: Nystatin POWDER 30 GM BOTTLE TP SCH ×3 (09:18→20:26)
[2021-06-30 01:22] LABS: Basophils # 0.1 K/mcL (0.0-0.2); Basophils % 0.8 %; Eosinophils # 0.5 K/mcL (0.0-0.6); Hematocrit 44.4 % (35.3-44.9); Hemoglobin 13.1 g/dL (11.5-15.4); Immature Granulocytes % 0.5 % (0-4); Lymphocytes % 20.3 %; Mean Corpuscular HGB Conc 29.5 g/dL (31.6-35.5); Mean Corpuscular Hemoglobin 22.8 pg (28.0-33.3); Mean Corpuscular Volume 77.4 fL (83.0-100.0); Mean Platelet Volume 9.9 fL (9.4-12.4); Monocytes # 1.1 K/mcL (0.0-1.3); Monocytes % 10.8 %; Neutrophils # 6.2 K/mcL (1.6-8.9); Platelet Count 243 K/mcL (140-400); Red Blood Count 5.74 M/mcL (3.82-4.97); Red Cell Distribution Width 18.6 % (11.5-14.5); Segmented Neutrophils % 62.6 %
[2021-06-30 01:45] LABS: Calcium 8.6 mg/dL (8.6-10.3)
[2021-06-30] MEDS: Insulin LISPRO 300 UNITS/3 ML VIAL SUBQ SCH ×4 (08:39→19:55)
[2021-06-30] MEDS: carvediloL 6.25 MG TABLET PO SCH ×2 (08:39→18:06)
[2021-06-30] MEDS: cephALEXin 500 MG CAPSULE PO SCH ×4 (08:39→20:07)
[2021-06-30] MEDS: *HR* Rivaroxaban 10 MG TABLET PO SCH (08:40)
[2021-06-30] MEDS: Nystatin POWDER 30 GM BOTTLE TP SCH ×3 (08:40→20:07)
[2021-06-30] MEDS: Aspirin Enteric Coated 81 MG Tablet PO SCH (08:40)
[2021-06-30] MEDS: Insulin DETEMIR 100 UNIT/ML X5UNITS SUBQ SCH (20:07)
[2021-07-01] MEDS: cephALEXin 500 MG CAPSULE PO SCH ×4 (08:57→20:21)
[2021-07-01] MEDS: Nystatin POWDER 30 GM BOTTLE TP SCH ×3 (08:57→20:20)
[2021-07-01] MEDS: carvediloL 6.25 MG TABLET PO SCH ×2 (08:57→16:18)
[2021-07-01] MEDS: *HR* Rivaroxaban 10 MG TABLET PO SCH (08:57)
[2021-07-01] MEDS: Aspirin Enteric Coated 81 MG Tablet PO SCH (08:57)
[2021-07-01] MEDS: Insulin LISPRO 300 UNITS/3 ML VIAL SUBQ SCH ×4 (08:58→20:20)
[2021-07-01] MEDS: Insulin DETEMIR 100 UNIT/ML X5UNITS SUBQ SCH (20:22)
[2021-07-02] MEDS: Insulin LISPRO 300 UNITS/3 ML VIAL SUBQ SCH ×4 (08:52→19:58)
[2021-07-02] MEDS: Aspirin Enteric Coated 81 MG Tablet PO SCH (08:53)
[2021-07-02] MEDS: Nystatin POWDER 30 GM BOTTLE TP SCH ×3 (08:53→19:58)
[2021-07-02] MEDS: *HR* Rivaroxaban 10 MG TABLET PO SCH (08:55)
[2021-07-02] MEDS: cephALEXin 500 MG CAPSULE PO SCH ×4 (08:55→19:58)
[2021-07-02] MEDS: carvediloL 6.25 MG TABLET PO SCH ×2 (08:55→17:47)
[2021-07-02] MEDS: Insulin DETEMIR 100 UNIT/ML X5UNITS SUBQ SCH (19:59)
[2021-07-03] MEDS: Nystatin POWDER 30 GM BOTTLE TP SCH ×3 (09:34→20:21)
[2021-07-03] MEDS: Insulin LISPRO 300 UNITS/3 ML VIAL SUBQ SCH ×4 (09:35→20:04)
[2021-07-03] MEDS: Aspirin Enteric Coated 81 MG Tablet PO SCH (10:35)
[2021-07-03] MEDS: *HR* Rivaroxaban 10 MG TABLET PO SCH (10:35)
[2021-07-03] MEDS: cephALEXin 500 MG CAPSULE PO SCH ×3 (10:36→17:51)
[2021-07-03] MEDS: carvediloL 6.25 MG TABLET PO SCH ×2 (10:41→17:51)
[2021-07-03] MEDS: *HR* HYDROcodone/Acet 5/325 mg TABLET PO PRN (17:50)
[2021-07-03] MEDS: Insulin DETEMIR 100 UNIT/ML X5UNITS SUBQ SCH (20:03)
[2021-07-04] MEDS: *HR* OxyCODONE Immed Rel 5 MG TABLET PO PRN (01:32)
[2021-07-04] MEDS: Insulin LISPRO 300 UNITS/3 ML VIAL SUBQ SCH ×4 (08:16→22:33)
[2021-07-04] MEDS: carvediloL 6.25 MG TABLET PO SCH ×2 (08:18→17:24)
[2021-07-04] MEDS: *HR* Rivaroxaban 10 MG TABLET PO SCH (08:18)
[2021-07-04] MEDS: Nystatin POWDER 30 GM BOTTLE TP SCH ×3 (08:19→22:33)
[2021-07-04] MEDS: Aspirin Enteric Coated 81 MG Tablet PO SCH (08:19)
[2021-07-04] MEDS ORDERED: Moderna Covid-19 Vaccine 100MCG/0.5mL IM ONE (10:47)
[2021-07-04] MEDS: Insulin DETEMIR 100 UNIT/ML X5UNITS SUBQ SCH (22:33)
[2021-07-05] MEDS: *HR* OxyCODONE Immed Rel 5 MG TABLET PO PRN (00:59)
[2021-07-05 07:04] VITALS: BP 148/86; PULSE 63; TEMP 98; O2SAT 98
[2021-07-05] MEDS: Insulin LISPRO 300 UNITS/3 ML VIAL SUBQ SCH (08:03)
[2021-07-05] MEDS: *HR* Rivaroxaban 10 MG TABLET PO SCH (08:04)
[2021-07-05] MEDS: Nystatin POWDER 30 GM BOTTLE TP SCH (08:04)
[2021-07-05] MEDS: carvediloL 6.25 MG TABLET PO SCH (08:04)
[2021-07-05] MEDS: Aspirin Enteric Coated 81 MG Tablet PO SCH (08:04)
== END 2021-07-05 12:53 ==
LOC: EMEROOARM 11:32 → 3BNU 11:32 → SUATTDRO 22:49 → 3BNU 23:05
PROVIDERS: ADMIT Internal Medicine; ATTEND Internal Medicine